=== PATIENT | male | born 1950 | race Caucasian/White ===

== ENCOUNTER → 2016-12-18 | Outpatient (CLI) | payer OTHER ==
[~2016-12-18] MED LIST: ACET-1311 PO; ALBUAER9 INH; ASPI1TAB83 PO; CALC-20 PO; CETI10TA10 PO; CYCL5TAB PO; DABI150C PO; DIGO0.1267 PO; FLUT0.15 NAE; MAGN400T6 PO; METO25TA3 PO; MINEOIL26 PO; MULT-506 PO; OMEG10007 PO; POTA-327 PO; PRLSR20 PO; ROSU40TA PO; ZNTT/150 PO
== END | disposition home or self-care (01) ==
LOC: C.LABSPEC 11:15
PROVIDERS: ATTEND Family Medicine
DX: B35.1 Tinea unguium (principal)

== ENCOUNTER → 2017-01-19 | Outpatient (CLI) | payer OTHER ==
[2017-01-19 11:45] LABS: ESTIMATED AVERAGE GLUCOSE 131 mg/dl; HA1C FLAG Normal (Normal)
[2017-01-19 11:59] LABS: ALT/SGPT 68 U/L (12-78); AST/SGOT 39 U/L (15-37); BLOOD UREA NITROGEN 11 mg/dl (7-18); CALCIUM 8.9 mg/dl (8.5-10.1); CARBON DIOXIDE 31 mmol/L (21-32); CHLORIDE 105 mmol/L (98-107); GLUCOSE 108 mg/dl (70-99); POTASSIUM 4.2 mmol/L (3.5-5.1); SODIUM 143 mmol/L (136-145)
[2017-01-19 12:02] LABS: ALB/GLOB RATIO 1.1 (0.9-2); ALKALINE PHOSPHATASE 92 U/L (45-117); CHOLESTEROL 109 mg/dl (0-200); CHOLESTEROL/HDL RATIO 3.1; HDL CHOLESTEROL 35 mg/dl; LDL CHOLESTEROL CALCULATED 45 mg/dl; TRIGLYCERIDES 145 mg/dl (0-150); VERY LOW DENSITY LIPOPROT CALC 29 mg/dl
== END | disposition home or self-care (01) ==
LOC: C.LAB1850 10:46
PROVIDERS: ATTEND Internal Medicine Endocrinology, Diabetes & Metabolism
DX: E11.9 Type 2 diabetes mellitus without complications (principal)

== ENCOUNTER → 2017-04-27 | Outpatient (CLI) | payer OTHER ==
[2017-04-27 13:41] LABS: MEAN CELL VOLUME 90.5 fL (80-100); MEAN CORPUSCULAR HEMOGLOBIN 31.8 pg (25-34); MEAN CORPUSCULAR HGB CONC 35.1 g/dl (32-36); MEAN PLATELET VOLUME 10.9 fL (7.4-10.4); PLATELET COUNT 144 K/uL (130-400); RED BLOOD COUNT 4.97 M/uL (4.7-6.1); WHITE BLOOD COUNT 5.85 K/uL (4.8-10.8)
[2017-04-27 14:06] LABS: ESTIMATED AVERAGE GLUCOSE 114 mg/dl; HA1C FLAG Normal (Normal)
== END | disposition home or self-care (01) ==
LOC: C.LAB1850 12:16
PROVIDERS: ATTEND Physician Assistant
DX: E11.9 Type 2 diabetes mellitus without complications (principal)

== ENCOUNTER → 2017-05-27 | Outpatient (CLI) | payer OTHER ==
[2017-05-27 17:59] LABS: THYROID STIMULATING HORMONE 1.3 uIu/ml (0.300-4.500)
== END | disposition home or self-care (01) ==
LOC: C.LABBFT 11:16
PROVIDERS: ATTEND Physician Assistant
DX: E11.9 Type 2 diabetes mellitus without complications (principal)

== ENCOUNTER → 2018-03-29 | Outpatient (CLI) | payer OTHER ==
[~2018-03-29] MED LIST changes: -METO25TA3 PO; +METO25TA4 PO; +RANI150T85 PO; -ZNTT/150 PO
[2018-03-30 06:45] LABS: HEMOGLOBIN A1C 5.7 % (4.5-5.6)
== END | disposition home or self-care (01) ==
LOC: C.LABBFT 14:51
PROVIDERS: ATTEND Physician Assistant
DX: E11.9 Type 2 diabetes mellitus without complications (principal)

== ENCOUNTER 2022-08-14 19:32 | Observation (INO) ==
[2022-08-14 20:18] LABS: Basophils # (auto) 0.05 K/uL (0-0.2); Basophils % (auto) 0.6 %; Eosinophils # (auto) 0.04 K/uL (0-0.50); Eosinophils % (auto) 0.4 %; Hematocrit (blood only) 47.4 % (40.1-51.0); Hemoglobin 16.9 g/dl (14.0-18.0); Immature Granulocytes # (auto) 0.09 K/uL (0.00-0.02); Lymphocytes % (auto) 22.3 %; Mean Corpuscular Hgb Conc 35.7 g/dL (32.0-36.0); Mean Corpuscular Volume 89.8 fL (80.0-100.0); Mean Platelet Volume 11.1 fL (9.4-12.4); Monocytes # (auto) 1.21 K/uL (0.24-0.82); Monocytes % (auto) 13.5 %; Neutrophils # (auto) 5.58 K/uL (1.4-6.5); Neutrophils % (auto) 62.2 %; Platelet Count 183 K/uL (130-400); RDW Coefficient of Variation 13.3 % (11.5-14.5); RDW Standard Deviation 43.8 fL (36.4-46.3); Red Blood Count 5.28 M/uL (4.63-6.08); White Blood Count 8.97 K/ul (4.8-10.8)
[2022-08-14 20:57] LABS: Albumin Globulin Ratio 1.3 (0.9-2); Albumin Level 3.9 gm/dl (3.4-5.0); BUN Creatinine Ratio 21.9 (10-20); Bilirubin,Total 0.7 mg/dl (0.2-1.0); Calcium 8.7 mg/dl (8.5-10.1); Creatinine Clr Calc Pharmacy 121.6 ml/min; Est GFR (African American) 108.9 ml/min; Globulin 3.1 gm/dl (2.5-4.0)
[2022-08-14 21:10] LABS: Appearance Urine Clear (Clear); Bilirubin Urine Negative (Negative); Blood Urine Negative (Negative); Color Urine Yellow; Glucose Urine UA Negative (Negative); Ketones Urine Negative (Negative); Leukocyte Esterase Urine Negative (Negative); Nitrite Urine Negative (Negative); Protein Urine Negative (Negative); Specific Gravity Urine 1.015 (1.000-1.030); Urobilinogen Urine Negative (Negative); pH Urine 6.5 (4.5-7.5)
[2022-08-14] MEDS ORDERED: SODIUM CHLORIDE 0.9% 1000ML 1,000 ML IV ONE (22:16)
[2022-08-14] MEDS ORDERED: ONDANSETRON INJ 2 MG/ML 2 ML VIAL IV STA (22:16)
[2022-08-14] MEDS ORDERED: ACETAMINOPHEN 1,000 MG/100 ML VIAL IV STA (22:16)
--- NOTE | 2022-08-14 22:43 | Emergency Department Note ---
Impression & Plan Diffuse abdominal pain, SBO (small bowel obstruction), COVID-19, Elevated liver enzymes ED Provider Note NAME: SAMANTHA ALCOCER AGE: 71 SEX: M : 1950 ARRIVES VIA: Walk-In INFORMANT: [Patient] ED PROVIDER(S): [Atif Ochoa MD] CHIEF COMPLAINT: Abdominal pain HISTORY OF PRESENT ILLNESS: Patient is a 71-year-old male who tested positive for COVID 19 about 5 days ago. He has had about 6 days of symptoms. He has had a headache, stuffy nose, low- grade fever and a mild cough. For 3 days, he has had intermittent abdominal pain and some bloating with some cramping. Patient states the pain comes and goes but is currently about a 6 on a scale 1 out of 10. He has had his gallbladder and appendix removed, he has had hernia surgery. He knows he has adhesions. Patient has had 1 bout of diarrhea, no diarrhea today. He has had nausea but he has not vomited. REVIEW OF SYSTEMS: See HPI for pertinent positives and negatives. A total of ten systems were reviewed and were otherwise negative. PMHx/PSHx: See Below SOCIAL HISTORY: See Below. PHYSICAL EXAM: GENERAL: Patient is in no acute distress. HEENT: No acute trauma, normocephalic atraumatic, mucous membranes moist, no nasal congestion, no scleral icterus. NECK: No stridor, no adenopathy, no meningismus, trachea is midline. LUNGS: Clear to auscultation bilaterally, no wheeze, no rhonchi, breath sounds equal. HEART: No murmurs, irregular rhythm, normal rate. ABDOMEN: Soft, mildly tender to the mid abdomen, there is some abdominal distention with some tympany to percussion. EXTREMITIES: No cyanosis or edema, full range of motion of all the joints without pain or difficulty, no signs for acute trauma. NEUROLOGIC: Oriented x 3, no acute motor or sensory deficits, no focal weakness. SKIN: No rash, no jaundice, no diaphoresis. DIFFERENTIAL DIAGNOSIS: Appendicitis, testicular torsion, diverticulitis, UTI, obstruction, mesenteric ischemia, aortic pathology, inflammatory bowel disease, renal colic, PUD, pancreatitis, biliary pathology, hernia, volvulus, constipation, as well as other pathologies. EMERGENCY DEPARTMENT COURSE/PROCEDURES: MEDICAL DECISION MAKING: There is no leukocytosis or concerning anemia. There is a normal platelet count. No renal failure or significant electrolyte abnormality. There is some subtle liver enzyme elevations, the bilirubin though is normal. No evidence for pancreatitis. Urinalysis does not show infection. Chest film does not show free air or pneumonia. Abdominal and pelvis CT suggests a partial small bowel obstruction versus ileus. No diverticulitis, no free air, no emergent acute surgical process by CT imaging. The patient received IV Zofran and IV saline, he was given IV Tylenol, he did not want anything stronger for pain. With the findings of potential partial small bowel obstruction, I did order for a nasogastric tube. The patient has had this type of tube before for similar issues. Given his findings, I do think a hospital stay is warranted. He has a history of bowel obstruction and does have adhesions. It is possible that his COVID infection prompted his current abdominal findings. I did speak to the patient about his testing, I talked to case management, the on-call hospitalist has been consulted. Past Med/Surg History Medical History Atrial fibrillation DX 2005 ? , follows with Dr. Diaz, HX 2 CARDIOVERSIONS CAD (coronary artery disease) (09/26/14) Chronic constipation Degenerative disc disease Depression no meds Diabetes mellitus, type 2 Diverticular disease Excessive thirst ONGOING "IT'S BEEN FOREVER" NOTICE IT FIRST THING IN THE MORNING GERD (gastroesophageal reflux disease) Hiatal hernia History of anesthesia reaction PER PT WITH HEAVY ANESTHESIA GI MOTILITY SLOWS DOWN History of atrial flutter History of cardioversion x2--last one 09/26/2013 History of dizziness RESOLVED History of ileus HTN (hypertension) (09/26/14) Hyperlipidemia (09/26/14) Nausea and vomiting after administration of anesthetic agent On anticoagulant therapy on eliquis Osteoarthritis Sciatic nerve pain Sleep apnea BIPAP Tortuous colon BORN WITH Surgical History History of appendectomy History of cardiac cath 2007 History of cardiac radiofrequency ablation x3--/2010 for A-fib @ [facility] [place] History of cataract surgery History of cholecystectomy History of colonoscopy pt stated that he needs the "pediatric scope" History of esophagogastroduodenoscopy (EGD) History of eye surgery x2--bug removal and piece of tree History of heart artery stent 2007--[facility] History of liver biopsy d/t elevated liver functions--was ok History of tonsillectomy and adenoidectomy History of wisdom tooth extraction Hx of right inguinal hernia repair Family History Sister Breast cancer Colonic polyp Mother CHF (congestive heart failure) Father CHF (congestive heart failure) Aneurysm Other No family history of adverse response to anesthesia Past medical history not known due to adoption Social History Smoking Status: Never smoker Second Hand Exposure: No; Hx Alcohol Use: Yes Alcohol type: wine Hx Substance Use: No Preferred Language: Uzbek Communication Ability: Effective Coat Presser Required: No Beliefs That Will Affect Care: None and Confucianism Confucianism Beliefs: HINDUISM Current Living Situation: Spouse Feels Safe at Home: Yes Assistive Devices: Cane and Glasses Allergies Allergies Allergy/AdvReac Type Severity Reaction Status Date / Time Influenza Virus Vaccines Allergy Unknown SICK FOR 2 Verified 02/18/22 10:54 WEEKS AFTERWARD Iodinated Contrast Media Allergy Unknown RASH Verified 02/18/22 10:54 latex Allergy Unknown RASH Verified 02/18/22 10:54 morphine Allergy Unknown RASH AND Verified 02/18/22 10:54 SWELLING acetaminophen [From Percocet] AdvReac Unknown Gastrointestinal Verified 02/18/22 10:54 Upset atorvastatin AdvReac Unknown Muscle Pain Verified 02/18/22 10:54 doxycycline AdvReac Unknown BODY ACHES Verified 02/18/22 10:54 metformin AdvReac Unknown Diarrhea, Verified 02/18/22 10:54 ABDOMINAL PAIN oxycodone AdvReac Unknown GI UPSET Verified 02/18/22 10:54 Home Meds Home Medications Medication Instructions Recorded Confirmed acetaminophen 500 mg tablet 500 mg PO Q6H PRN ACHES AND PAINS 10/26/18 02/18/22 (Tylenol Extra Strength) apixaban 5 mg tablet 5 mg PO BID 10/26/18 02/18/22 aspirin 81 mg tablet,delayed 81 mg PO HS 10/26/18 02/18/22 release (Ecotrin Low Strength) cetirizine 10 mg tablet (Zyrtec) 10 mg PO QAM 10/26/18 02/18/22 docusate sodium 100 mg capsule 100 mg PO UD PRN Constipation 10/26/18 02/18/22 fluticasone propionate 50 2 spray intranasal UD PRN Nasal 10/26/18 02/18/22 mcg/actuation nasal Congestion spray,suspension (Flonase Allergy Relief) magnesium oxide 400 mg PO QAM 10/26/18 02/18/22 multivitamin 1 tab PO QAM 10/26/18 02/18/22 rosuvastatin 40 mg tablet 40 mg PO HS 10/26/18 02/18/22 calcium carbonate 600 mg-vitamin 1 cap PO BID 09/22/19 02/18/22 D3 10 mcg (400 unit) capsule (Calcium 600 with Vitamin D3) omeprazole 20 mg tablet,delayed 40 mg PO QAM 05/15/20 02/18/22 release ascorbic acid (vitamin C) 500 mg 500 mg PO DAILY 02/18/21 02/18/22 capsule cyanocobalamin (vitamin B-12) 1,000 mcg sublingual DAILY 02/18/21 02/18/22 1,000 mcg sublingual tablet potassium chloride 10 mEq 10 meq PO 3XWK 02/18/21 02/18/22 tablet,extended release (Klor-Con) diclofenac sodium 1 % topical gel 2 g topical UD PRN BONE SPUR 11/01/21 02/18/22 hydrocortisone 2.5 % topical cream 1 applic NM UD PRN HEMERRHOIDS 11/01/21 02/18/22 with perineal applicator (Procto-Med HC) meclizine 25 mg tablet 25 mg PO UD PRN NAUSEA, DIZZINESS 11/01/21 02/18/22 insulin aspart U-100 100 unit/mL 8 - 30 unit subcut UD 02/18/22 02/18/22 (3 mL) subcutaneous pen (Novolog Flexpen U-100 Insulin aspart) metoprolol succinate 50 mg 50 mg PO .COMPLEX 02/18/22 02/18/22 tablet,extended release 24 hr Previous Rx's Medication Instructions Recorded pen needle, diabetic 32 gauge x #500 ea 01/10/2232" (BD Aisha 2nd Gen Pen Needle) Toujeo Max U-300 SoloStar 300 74 unit (0.2467 mL) subcut HS 90 04/07/22 unit/mL (3 mL) subcutaneous days #24 mL insulin pen (insulin glargine U-300 conc) OneTouch Verio test strips (blood #400 ea 06/03/22 sugar diagnostic) Results & Data (ED) Vital Signs Vital Signs - 24 hr 08/14/22 19:57 08/14/22 23:08 08/15/22 01:06 Temperature 36.0 C L Temperature Source Oral Pulse Rate 59 L Pulse Rate [Finger] 80 90 Respiratory Rate 18 20 20 Respiratory Effort / Characteristics Non-Labored Spontaneous Non-Labored Spontaneous Non-Labored Spontaneous Respiratory Depth Normal Normal Normal Respiratory Pattern Regular Blood Pressure 118/68 Blood Pressure [Right Arm] 153/92 H 133/89 Blood Pressure Mean 84 Blood Pressure Mean [Right Arm] 112 103 Blood Pressure Position Sitting Pulse Oximetry 95 97 97 Oxygen Delivery Method Room Air Room Air Room Air Sepsis Recent Fever Within 48 Hours Yes Sepsis New/Unexplained Change in Mental Status N/A Sepsis Action Taken by Nursing No Action Required Home Medications Current Medication List: was personally reviewed by me Laboratory Data Attestation: I reviewed the patient's lab results. Result diagrams: 08/14/22 20:08 08/14/22 20:08 Lab Results 08/14/22 08/14/22 08/14/22 Range/Units 20:08 20:08 20:55 WBC 8.97 (4.8-10.8) K/ul RBC 5.28 (4.63-6.08) M/uL Hgb 16.9 (14.0-18.0) g/dl Hct 47.4 (40.1-51.0) % MCV 89.8 (80.0-100.0) fL MCH 32.0 (25.0-34.0) pg MCHC 35.7 (32.0-36.0) g/dL RDW Std Deviation 43.8 (36.4-46.3) fL RDW Coeff of Dominic 13.3 (11.5-14.5) % Plt Count 183 (130-400) K/uL MPV 11.1 (9.4-12.4) fL Immature Gran % (Auto) 1.0 % Neut % (Auto) 62.2 % Lymph % (Auto) 22.3 % [place] % (Auto) 13.5 % Eos % (Auto) 0.4 % Baso % (Auto) 0.6 % Neut # (Auto) 5.58 (1.4-6.5) K/uL Lymph # (Auto) 2.00 (1.2-3.4) K/uL [place] # (Auto) 1.21 H (0.24-0.82) K/uL Eos # (Auto) 0.04 (0-0.50) K/uL Baso # (Auto) 0.05 (0-0.2) K/uL Immature Gran # (Auto) 0.09 H (0.00-0.02) K/uL Sodium 134 L (136-145) mmol/L Potassium 4.0 (3.5-5.1) mmol/L Chloride 102 (98-107) mmol/L Carbon Dioxide 24 (21-32) mmol/L Anion Gap 8 (3-11) BUN 16 (6-23) mg/dl Creatinine 0.73 (0.6-1.4) mg/dl Est Cr Clr Drug Dosing 121.6 ml/min Est GFR ( Amer) 108.9 ml/min Est GFR (Non-Af Amer) 94.0 ml/min BUN/Creatinine Ratio 21.9 H (10-20) Glucose 137 H (70-99(Fasting)) mg/dl Calcium 8.7 (8.5-10.1) mg/dl Total Bilirubin 0.7 (0.2-1.0) mg/dl AST 56 H (13-39) U/L ALT 57 H (7-52) U/L Alkaline Phosphatase 108 H (34-104) U/L Total Protein 7.0 (6.0-8.3) gm/dl Albumin 3.9 (3.4-5.0) gm/dl Globulin 3.1 (2.5-4.0) gm/dl Albumin/Globulin Ratio 1.3 (0.9-2) Lipase 26 (11-82) U/L Urine Color Yellow Urine Appearance Clear (Clear) Urine pH 6.5 (4.5-7.5) Ur Specific [place] 1.015 (1.000-1.030) Urine Protein Negative (Negative) Urine Glucose (UA) Negative (Negative) Urine Ketones Negative (Negative) Urine Blood Negative (Negative) Urine Nitrite Negative (Negative) Urine Bilirubin Negative (Negative) Urine Urobilinogen Negative (Negative) Ur Leukocyte Esterase Negative (Negative) Administered Medications Discontinued Medications Sodium Chloride (Nss 1000ml) 1,000 mls @ 999 mls/hr IV .Q1H1M ONE Stop: 08/14/22 23:16 Last Infusion: 08/15/22 01:08 Dose: 0 mls/hr Documented By: Admin: 08/14/22 23:03 Dose: 999 mls/hr Documented By: TAQUERIA Acetaminophen (Ofirmev) 1,000 mg in 100 mls @ 400 mls/hr IV NOW STA Stop: 08/14/22 22:30 Last Infusion: 08/15/22 01:08 Dose: 0 mls/hr Documented By: Admin: 08/14/22 23:05 Dose: 400 mls/hr Documented By: TAQUERIA Ondansetron HCl (Ondansetron Inj 2 Mg/Ml 2 Ml Vial) 4 mg IV NOW STA Stop: 08/14/22 22:17 Last Admin: 08/14/22 23:02 Dose: 4 mg Documented By: TAQUERIA Imaging Data Attestation: I personally reviewed and interpreted this imaging study as fo llows: My Impression: Chest x-ray: Per my review there is no free air or pneumonia. Radiologist's Impression: Abdominal and pelvis CT without contrast: There are scattered gas/fluid levels within the dilated proximal and mid small bowel. Distal small bowel is completely decompressed. There is mild edema to the mid bowel wall adjacent to the mesentery. There is a gradual transition point which appears to be a loop of small bowel containing more solid material. There are scattered gas fluid levels within the nondilated right and transverse colon. Consider low-grade bowel obstruction due to gastroenteritis or ileus. No bowel operation or abscess. No diverticulitis. Discharge Plan Visit Data Chief Complaint: Abdominal Pain Stated Complaint: COVID+ 08/09, ABDOM PAIN ED Provider: Atif Ochoa Discharge Problem: Diffuse abdominal pain, SBO (small bowel obstruction), COVID-19, Elevated liver enzymes Patient Disposition: Admitted As Inpatient Condition: Good Forms Stand Alone Forms: My [facility] Prescriptions Prescriptions: No Action (DME) pen needle, diabetic [BD Aisha 2nd Gen Pen Needle] 32 gauge x 5/32" needle See Rx Instructions .ROUTE .MEDSUPPLY Qty: 500 3RF Rx Instructions: use 5 x daily Toujeo Max U-300 SoloStar 300 unit/mL (3 mL) insulin pen 74 unit SQ HS 90 Days Qty: 24 3RF (DME) OneTouch Verio test strips Strip See Dose Instructions .ROUTE .MEDSUPPLY Qty: 400 3RF Dose Instruction: As directed Rx Instructions: use 4 strips daily to test blood sugars cyanocobalamin (vitamin B-12) 1,000 mcg tablet, sublingual 1,000 mcg SL DAILY ascorbic acid (vitamin C) 500 mg capsule 500 mg PO DAILY insulin aspart U-100 [Novolog Flexpen U-100 Insulin] 100 unit/mL (3 mL) insulin pen 8 - 30 unit subcut UD Label Comments: SLIDING SCALE Rx Instructions: inject per sliding scale metoprolol succinate 50 mg tablet extended release 24 hr 50 mg PO .COMPLEX Rx Instructions: 50 mg PO in the am and 25mg in the pm; acetaminophen [Tylenol Extra Strength] 500 mg Tablet 500 mg PO Q6H PRN (Reason: ACHES AND PAINS) docusate sodium 100 mg Capsule 100 mg PO UD PRN (Reason: Constipation) apixaban 5 mg tablet 5 mg PO BID magnesium oxide 400 mg magnesium Tablet 400 mg PO QAM aspirin [Ecotrin Low Strength] 81 mg Tablet,Delayed Release (Dr/Ec) 81 mg PO HS cetirizine [Zyrtec] 10 mg Tablet 10 mg PO QAM multivitamin Tablet 1 tab PO QAM fluticasone propionate [Flonase Allergy Relief] 50 mcg/actuation [place],Suspension 2 spray Intranasal UD PRN (Reason: Nasal Congestion) Label Comments: 2 SPRAYS IN EACH NOSTRIL rosuvastatin 40 mg tablet 40 mg PO HS calcium carbonate-vitamin D3 [Calcium 600 with Vitamin D3] 600 mg(1,500mg) - 400 unit capsule 1 cap PO BID Label Comments: 1 tab PO BID; Rx Instructions: 1 tab PO BID; omeprazole 20 mg tablet,delayed release (DR/EC) 40 mg PO QAM potassium chloride [Klor-Con 10] 10 mEq tablet extended release 10 meq PO 3XWK Label Comments: MON, WED , FRI Rx Instructions: 3 days per week hydrocortisone [Procto-Med HC] 2.5 % Cream With Perineal Applicator 1 applic NM UD PRN (Reason: HEMERRHOIDS) diclofenac sodium 1 % Gel 2 g TOPICAL UD PRN (Reason: BONE SPUR) meclizine 25 mg Tablet 25 mg PO UD PRN (Reason: NAUSEA, DIZZINESS) Referrals Referrals: Tyler Merritt DO [Primary Care Provider] -
[2022-08-15] MEDS ORDERED: ONDANSETRON INJ 2 MG/ML 2 ML VIAL ONE (04:29)
[2022-08-15] MEDS ORDERED: ONDANSETRON INJ 2 MG/ML 2 ML VIAL IV STA (04:42)
--- NOTE | 2022-08-15 04:47 | History and Physical Report ---
DATE OF ADMISSION: 08/15/2022. CHIEF COMPLAINT: Abdominal pain. HISTORY OF PRESENT ILLNESS: A 71-year-old male with past medical history significant for paroxysmal atrial fibrillation, status post ablation x3, on chronic anticoagulation, CAD status post bare metal stent to LAD, hypertension, hyperlipidemia, sleep apnea with BiPAP, COPD, metabolic syndrome, cervical disk disease, fibromyalgia, GERD, restless legs syndrome, history of cholesteatoma left mastoid, diabetes, GERD, irritable bowel syndrome, who was recently diagnosed with COVID, comes with abdominal pain and found to have a small bowel obstruction. The patient says he has COVID symptoms of generalized weakness, headache, some mild cough, low-grade temperature. Symptoms started on Thursday, diagnosed on Thursday, seemed to get better after 2-3 days, then he started to have bloating and abdominal cramping, he knows that he has adhesions from previous bowel surgeries came to the hospital and found to have small bowel obstruction. He had one episode of diarrhea, but the diarrhea resolved, and last bowel movement was yesterday. Currently, no headache, no dizziness, occasional blurred visions, no earache, no runny nose, no sore throat. Currently, no cough, no chest pain, no shortness of breath. Has some nausea, abdominal pain improved with pain medication in the ER. Normal bladder movements. Resting comfortably and hemodynamically stable. ALLERGIES: INFLUENZA VIRUS VACCINE, IODINATED CONTRAST MEDIA, LATEX, MORPHINE, ATORVASTATIN, DOXYCYCLINE, METFORMIN AND OXYCODONE. PAST MEDICAL HISTORY: As mentioned above. PAST SURGICAL HISTORY: Ablation of the heart x3, colonoscopy, EGDs with biopsy, removal of cyst in the right shoulder, cardiac catheterization and bare metal stent to LAD, laparoscopic cholecystectomy, tonsillectomy, adenoidectomy, inguinal hernia repair. MEDICATIONS: The patient is on Tylenol 500 mg p.o. q. 6 hours p.r.n., Eliquis 5 mg p.o. b.i.d., vitamin C 500 mg p.o. daily, aspirin 81 mg p.o. at bedtime, Zetia 10 mg p.o. at bedtime, vitamin B12 1000 mcg sublingual daily, diclofenac sodium 2 g topical p.r.n., Colace 100 mg p.o. daily p.r.n., Flonase 2 sprays intranasal p.r.n., insulin sliding scale, magnesium oxide 400 mg p.o. a.m., meclizine 25 mg p.r.n., metoprolol succinate 50 mg p.o. b.i.d., molnupiravir as directed, multivitamin 1 tab daily, omeprazole 40 mg p.o. daily, potassium chloride 10 mEq p.o. 3 times a week, atorvastatin 40 mg p.o. at bedtime, Toujeo SoloSTAR 74 units subcutaneous at bedtime. FAMILY HISTORY: Significant for sister has musculoskeletal disorder. The patient is adopted. SOCIAL HISTORY: , no smoking. Alcohol, rarely. No drug use. REVIEW OF SYSTEMS: As per HPI. Rest of review of systems is negative. PHYSICAL EXAMINATION: GENERAL: The patient is of moderate built, not in acute distress. VITAL SIGNS: Temperature 36, pulse 90, respiratory rate 20, blood pressure 96/73, oxygen 96% on room air. HEENT: Pupils equal, round and reactive to light. Oral mucosa moist. NECK: No JVD, no neck masses. CARDIOVASCULAR: S1 and S2 heard. Regular rate and rhythm. No murmur, no gallop. RESPIRATORY SYSTEM: Normal AP diameter. No accessory muscle use. No wheezing or crackles. ABDOMEN: Soft, bowel sounds sluggish. Mild distention. Mild discomfort. No guarding. No rigidity. CENTRAL NERVOUS SYSTEM: Cranial nerves II-XII grossly intact, nonfocal. EXTREMITIES: No edema, no erythema. LABORATORY DATA: WBC 8.9, hemoglobin 16.9, hematocrit 47.4, platelets 183. Sodium 134, potassium 4, chloride 102, bicarbonate 24, BUN 16, creatinine 0.7, serum glucose 137, calcium 8.7, total bilirubin 0.7, AST 56, ALT 57, alkaline phosphatase 108. Lipase 26. Urinalysis negative. SARS-CoV-2 PCR positive. IMAGING DATA: Chest x-ray, no acute findings. CT abdomen and pelvis, preliminary report small bowel obstruction. EKG: Atrial flutter with PVCs, at rate of 115. No acute ST changes seen. ASSESSMENT AND PLAN: This is a 71-year-old male who was recently diagnosed with COVID, comes with abdominal pain, found to have small-bowel obstruction. 1. Small-bowel obstruction, status post NG tube in the ER. We will continue with n.p.o., IV fluids, IV antiemetics, IV pain medicines p.r.n. The patient is allergic to MORPHINE. Closely monitor in the [employer] tele. Surgical consult in a.m. for further recommendations. 2. History of atrial fibrillation, status post ablation, history of tachybrady syndrome, he is not a candidate for pacemaker. Rate controlled with metoprolol, can give p.o. from NG tube if possible, if not replace IV Lopressor to p.r.n. Continue also Eliquis via NG tube. 3. History of coronary artery disease, status post stent Continue aspirin, beta maria antonia, and statin via NG tube. 4. Diabetes. We will cut back Lantus 30 units at bedtime, insulin sliding scale. Follow the blood sugars. Adjust insulin when diet started 5. Gastroesophageal reflux disease. We will place him on IV Protonix. 6. Hypertension. Continue metoprolol. We will monitor the blood pressure. 7. Obstructive sleep apnea, on BiPAP. 8. Deep venous thrombosis prophylaxis, on Eliquis. DISPOSITION: Closely monitor in the [employer] tele. PT/OT prior to discharge. Social service to help with discharge planning. Job ID: [id number] TRACIE
[2022-08-15] MEDS ORDERED: ONDANSETRON INJ 2 MG/ML 2 ML VIAL IV PRN (06:05)
[2022-08-15] MEDS ORDERED: ACETAMINOPHEN 1,000 MG/100 ML VIAL IV PRN (06:05)
[2022-08-15] MEDS ORDERED: DICLOFENAC SOD 1% GEL 100 GM TUBE EXT PRN (06:05)
[2022-08-15] MEDS ORDERED: NITROGLYCERIN SL 0.4 MG/TAB TAB SL PRN (06:05)
[2022-08-15] MEDS ORDERED: FLUTICASONE PROPIONATE NA SPR 16 GM BTL PRN (06:05)
[2022-08-15] MEDS: SODIUM CHLORIDE 0.9% 1000ML 1,000 ML IV SCH ×2 (07:23→15:36)
[2022-08-15] MEDS: INSULIN ASPART PER UNIT SC SCH ×4 (07:26→23:00)
[2022-08-15 07:42] LABS: Hematocrit (blood only) 44.2 % (40.1-51.0); Hemoglobin 15.5 g/dl (14.0-18.0); Mean Corpuscular Hemoglobin 32.2 pg (25.0-34.0); Mean Corpuscular Hgb Conc 35.1 g/dL (32.0-36.0); Mean Corpuscular Volume 91.9 fL (80.0-100.0); Mean Platelet Volume 10.7 fL (9.4-12.4); Platelet Count 131 K/uL (130-400); RDW Coefficient of Variation 13.3 % (11.5-14.5); RDW Standard Deviation 45.4 fL (36.4-46.3); Red Blood Count 4.81 M/uL (4.63-6.08); White Blood Count 6.58 K/ul (4.8-10.8)
[2022-08-15 07:55] LABS: BUN Creatinine Ratio 17.1 (10-20); Calcium 8.3 mg/dl (8.5-10.1); Creatinine Clr Calc Pharmacy 108.3 ml/min; Est GFR (African American) 103.8 ml/min; Est GFR (Non-African American) 89.6 ml/min; Magnesium 2.1 mg/dl (1.7-2.4); Potassium 3.8 mmol/L (3.5-5.1)
[2022-08-15 08:12] LABS: Basophils # (auto) 0.03 K/uL (0-0.2); Basophils % (auto) 0.5 %; Eosinophils # (auto) 0.05 K/uL (0-0.50); Eosinophils % (auto) 0.8 %; Immature Granulocytes % (auto) 1.5 %; Lymphocytes # (auto) 1.87 K/uL (1.2-3.4); Lymphocytes % (auto) 28.4 %; Monocytes # (auto) 0.79 K/uL (0.24-0.82); Neutrophils # (auto) 3.74 K/uL (1.4-6.5); Neutrophils % (auto) 56.8 %
[2022-08-15 08:22] LABS: Estimated Average Glucose 120 mg/dl; Hemoglobin A1C 5.8 % (4.5-5.6)
--- NOTE | 2022-08-15 09:31 | CT Scan Report ---
CT OF THE ABDOMEN AND PELVIS WITHOUT CONTRAST CLINICAL HISTORY: Abdominal pain. COMPARISON STUDY: CT of the abdomen and pelvis October 26, 2018. TECHNIQUE: Axial images of the abdomen and pelvis were obtained without IV contrast. Images were revi ewed in the axial, sagittal, and coronal planes. Automated exposure control was utilized for the juan dy. A dose lowering technique was utilized adhering to the principles of ALARA. FINDINGS: A 4 mm right middle lobe nodule is unchanged since CT of October 26, 2018. This is benign given stability. Evaluation of the abdomen and pelvis is suboptimal on this unenhanced exam. There is no biliary ductal dilatation status post cholecystectomy. No hepatic lesions are identified on unenh anced exam. Spleen, adrenal glands, kidneys and pancreas are unremarkable with exception of a few par enchymal calcifications within the pancreas. There is no hydronephrosis. There is no pancreatic ducta l dilatation. Diverticulum of the second duodenum is noted. Multiple moderate dilated fluid-filled sm all bowel are present. No well-defined transition point is identified. No bowel wall thickening is id entified on unenhanced exam. This colonic diverticulosis without evidence for acute diverticulitis. T here is no lymphadenopathy. There is no fluid collection to suggest an abscess. IMPRESSION: 1. Multiple loops of moderately dilated fluid-filled small bowel without well-defined transition poin t. These findings could reflect a partial small bowel obstruction or enteritis with ileus. 2. Colonic diverticulosis without evidence for acute diverticulitis. ACT 112: Negative or not required by law. Electronically signed by: Jeremiah Dawkins M.D. 08/15/2022 9:29 AM
--- NOTE | 2022-08-15 10:16 | XRay Report ---
XR chest 1V portable HISTORY: Cough. Atypical chest pain. COMPARISON: Chest 11/29/2019. FINDINGS: No pneumothorax. No pleural effusions. The heart remains mildly enlarged. No new focal lung consolidations to suggest a pneumonia. No evidence for pulmonary edema. IMPRESSION: Stable mild cardiomegaly. ACT 112: Negative or not required by law. Electronically signed by: John Castanon M.D. 08/15/2022 10:15 AM
--- NOTE | 2022-08-15 10:19 | XRay Report ---
KUB HISTORY: NG tube placement. COMPARISON: Abdomen and pelvis CT 08/14/2022. FINDINGS: Nasogastric tube terminates in the proximal stomach. The fenestrated line is at the gastroe sophageal junction. This should be advanced by approximately 5 cm. Prior cholecystectomy. Gas-filled mildly dilated loops of small bowel are again seen within the upper abdomen. This favors a small eron l obstruction. No renal calculi. No ureteral calculi. No pneumoperitoneum or pneumatosis. IMPRESSION: 1. Nasogastric tube terminates in the proximal stomach with the fenestrated line at the gastroesophag eal junction. This should be advanced by approximately 5 cm. 2. Mildly dilated gas-filled loops of small bowel within the upper abdomen which favors a small bowel obstruction. ACT 112: Negative or not required by law. Electronically signed by: John Castanon M.D. 08/15/2022 10:17 AM
[2022-08-15 10:26] LABS: Alanine Aminotransferase 50 U/L (7-52); Aspartate Aminotransferase 37 U/L (13-39)
[2022-08-15] MEDS: MAGNESIUM OXIDE 400 MG TAB PO SCH ×2 (12:07→14:11)
[2022-08-15] MEDS: METOPROLOL SUCC 50MG EXT REL TAB PO SCH ×2 (12:07→22:10)
[2022-08-15] MEDS: APIXABAN 5 MG TABLET PO SCH ×2 (12:07→22:10)
--- NOTE | 2022-08-15 12:36 | Surgery Consultation ---
Date of Consultation August 15, 2022 Assessment & Plan (1) Diarrhea: (2) Abdominal bloating: (3) Partial small bowel obstruction: Plan 71-year-old gentleman with COVID, also presents with what appears to be an ileus versus gastroenteritis. I do not believe he has a small bowel obstruction as he is passing flatus and has had diarrhea. The NG tube can be removed. He may be started on clear liquids. We will follow along peripherally. History of Present Illness Reason for Consultation: Small bowel obstruction Requesting Physician: Kana Del Rio MD Attending Physician: Kana Del Rio MD History of Present Illness 71-year-old gentleman presents with diarrhea, abdominal pain, nausea, COVID infection. He states that he has been having some lower abdominal pain on and off for the past few weeks. He did have diarrhea. He usually has a bowel movem ent every 2 to 4 days. Yesterday he developed significant upper abdominal pain and some nausea. He did not have any vomiting episodes. He denies fevers or chills. He denies chest pain or shortness of breath. He was diagnosed with COVID on Thursday. He has a history of ileus in the past. He states that he is continuing to pass a lot of gas. He does feel bloated. His last bowel movement was yesterday. Allergies Allergy/AdvReac Type Severity Reaction Status Date / Time Influenza Virus Vaccines Allergy Unknown SICK FOR 2 Verified 02/18/22 10:54 WEEKS AFTERWARD Iodinated Contrast Media Allergy Unknown RASH Verified 02/18/22 10:54 latex Allergy Unknown RASH Verified 02/18/22 10:54 morphine Allergy Unknown RASH AND Verified 02/18/22 10:54 SWELLING atorvastatin AdvReac Unknown Muscle Pain Verified 02/18/22 10:54 doxycycline AdvReac Unknown BODY ACHES Verified 02/18/22 10:54 metformin AdvReac Unknown Diarrhea, Verified 02/18/22 10:54 ABDOMINAL PAIN oxycodone AdvReac Unknown GI UPSET Verified 02/18/22 10:54 Home Medications Medication Instructions Recorded Confirmed Type acetaminophen 500 mg tablet 500 mg PO Q6H PRN ACHES AND PAINS 10/26/18 08/15/22 History (Tylenol Extra Strength) apixaban 5 mg tablet 5 mg PO BID 10/26/18 08/15/22 History aspirin 81 mg tablet,delayed 81 mg PO HS 10/26/18 08/15/22 History release (Ecotrin Low Strength) cetirizine 10 mg tablet (Zyrtec) 10 mg PO HS 10/26/18 08/15/22 History docusate sodium 100 mg capsule 100 mg PO UD PRN Constipation 10/26/18 08/15/22 History fluticasone propionate 50 2 spray intranasal UD PRN Nasal 10/26/18 08/15/22 History mcg/actuation nasal Congestion spray,suspension (Flonase Allergy Relief) magnesium oxide 400 mg PO QAM 10/26/18 08/15/22 History multivitamin 1 tab PO QAM 10/26/18 08/15/22 History rosuvastatin 40 mg tablet 40 mg PO HS 10/26/18 08/15/22 History calcium carbonate 600 mg-vitamin 1 cap PO BID 09/22/19 08/15/22 History D3 10 mcg (400 unit) capsule (Calcium 600 with Vitamin D3) omeprazole 20 mg tablet,delayed 40 mg PO QAM 05/15/20 08/15/22 History release ascorbic acid (vitamin C) 500 mg 500 mg PO DAILY 02/18/21 08/15/22 History capsule cyanocobalamin (vitamin B-12) 1,000 mcg sublingual DAILY 02/18/21 08/15/22 History 1,000 mcg sublingual tablet potassium chloride 10 mEq 10 meq PO 3XWK 02/18/21 08/15/22 History tablet,extended release (Klor-Con) diclofenac sodium 1 % topical gel 2 g topical UD PRN BONE SPUR 11/01/21 08/15/22 History hydrocortisone 2.5 % topical cream 1 applic VA UD PRN HEMERRHOIDS 11/01/21 08/15/22 History with perineal applicator (Procto-Med HC) meclizine 25 mg tablet 25 mg PO UD PRN NAUSEA, DIZZINESS 11/01/21 08/15/22 History pen needle, diabetic 32 gauge x #500 ea 01/10/22 08/15/22 Rx 5/32" (BD Aisha 2nd Gen Pen Needle) insulin aspart U-100 100 unit/mL 8 - 30 unit subcut UD 02/18/22 08/15/22 History (3 mL) subcutaneous pen (Novolog Flexpen U-100 Insulin aspart) metoprolol succinate 50 mg 50 mg PO BID 02/18/22 08/15/22 History tablet,extended release 24 hr Toujeo Max U-300 SoloStar 300 74 unit (0.2467 mL) subcut HS 90 04/07/22 08/15/22 Rx unit/mL (3 mL) subcutaneous days #24 mL insulin pen (insulin glargine U-300 conc) OneTouch Verio test strips (blood #400 ea 06/03/22 08/15/22 Rx sugar diagnostic) molnupiravir 200 mg capsule (EUA) 800 mg PO BID 08/15/22 08/15/22 History ([place]) Patient History Medical History Atrial fibrillation DX 2005 ? , follows with Dr. Diaz, HX 2 CARDIOVERSIONS CAD (coronary artery disease) (09/26/14) Chronic constipation Degenerative disc disease Depression no meds Diabetes mellitus, type 2 Diverticular disease Excessive thirst ONGOING "IT'S BEEN FOREVER" NOTICE IT FIRST THING IN THE MORNING GERD (gastroesophageal reflux disease) Hiatal hernia History of anesthesia reaction PER PT WITH HEAVY ANESTHESIA GI MOTILITY SLOWS DOWN History of atrial flutter History of cardioversion x2--last one 09/26/2013 History of dizziness RESOLVED History of ileus HTN (hypertension) (09/26/14) Hyperlipidemia (09/26/14) Nausea and vomiting after administration of anesthetic agent On anticoagulant therapy on eliquis Osteoarthritis Sciatic nerve pain Sleep apnea BIPAP Tortuous colon BORN WITH Surgical History History of appendectomy History of cardiac cath 2007 History of cardiac radiofrequency [place] x3[place]2009[place] [facility] [place] History of cataract surgery History of cholecystectomy History of colonoscopy pt stated that he needs the "pediatric scope" History of esophagogastroduodenoscopy (EGD) History of eye surgery x2--bug removal and piece of tree History of heart artery stent 2007--[facility] History of liver biopsy d/t elevated liver functions--was ok History of tonsillectomy and adenoidectomy History of wisdom tooth extraction Hx of right inguinal hernia repair Family History Sister Breast cancer Colonic polyp Mother CHF (congestive heart failure) Father CHF (congestive heart failure) Aneurysm Other No family history of adverse response to anesthesia Past medical history not known due to adoption Social History Smoking Status: Former smoker Second Hand Exposure: No; Hx Alcohol Use: Yes Alcohol type: wine Hx Substance Use: No Preferred Language: Surinamese Communication Ability: Effective Line Inspector Required: No Beliefs That Will Affect Care: None marital status: Current Living Situation: Spouse Feels Safe at Home: Yes Safety Concerns: Feels Safe At This Time Assistive Devices: BiPap and Cane Review of Systems Review of Systems: All systems reviewed & are unremarkable except as noted in HPI & below Physical Exam Constitutional: WD/WN, vitals as above Neck: trachea midline, no thyromegaly Respiratory: normal respiratory effort; no respiratory distress and no labored breathing Cardiovascular: Rate/Rhythm: regular rate and regular rhythm Gastrointestinal (Abdomen): Inspection/Auscultation: abdomen normal to inspection; abdomen not distended Percussion/Palpation: + abdomen tender (Mild TTP in epigastrium) and abdomen soft; no guarding and abdomen not rigid Musculoskeletal: Extremities: no cyanosis and no clubbing Skin: no rashes, warm and dry Psychiatric: A+Ox3, euthymic affect Results & Data ([facility]) Vital Signs (Past 12 Hours) Vital Signs Pulse Pulse Resp BP BP Pulse Ox Pulse Ox 08/15/22 10:00 91 H 13 08/15/22 09:30 96 H 14 08/15/22 09:00 100 H 16 08/15/22 08:30 80 16 08/15/22 08:00 77 17 08/15/22 07:30 89 21 08/15/22 07:00 81 5 L 08/15/22 07:04 97 08/15/22 06:23 79 19 106/82 98 08/15/22 05:31 75 20 131/96 08/15/22 05:00 78 22 126/91 96 08/15/22 04:30 20 118/73 95 08/15/22 04:00 20 111/78 96 08/15/22 03:30 12 110/81 95 08/15/22 03:01 12 137/85 97 08/15/22 02:30 20 96/73 L 96 08/15/22 02:00 22 105/71 96 08/15/22 01:06 90 20 133/89 97 O2 Del Method O2 Del Method 08/15/22 10:00 08/15/22 09:30 08/15/22 09:00 08/15/22 08:30 08/15/22 08:00 08/15/22 07:30 08/15/22 07:00 08/15/22 07:04 Room Air 08/15/22 06:23 Room Air 08/15/22 05:31 08/15/22 05:00 Room Air 08/15/22 04:30 Room Air 08/15/22 04:00 Room Air 08/15/22 03:30 Room Air 08/15/22 03:01 Room Air 08/15/22 02:30 Room Air 08/15/22 02:00 Room Air 08/15/22 01:06 Room Air Laboratory Results 08/15/22 08/15/22 08/15/22 Range/Units 12:14 09:50 07:14 WBC (4.8-10.8) K/ul RBC (4.63-6.08) M/uL Hgb (14.0-18.0) g/dl Hct (40.1-51.0) % MCV (80.0-100.0) fL MCH (25.0-34.0) pg MCHC (32.0-36.0) g/dL RDW Std Deviation (36.4-46.3) fL RDW Coeff of Dominic (11.5-14.5) % Plt Count (130-400) K/uL MPV (9.4-12.4) fL Immature Gran % (Auto) % Neut % (Auto) % Lymph % (Auto) % Richardson % (Auto) % Eos % (Auto) % Baso % (Auto) % Neut # (Auto) (1.4-6.5) K/uL Lymph # (Auto) (1.2-3.4) K/uL Richardson # (Auto) (0.24-0.82) K/uL Eos # (Auto) (0-0.50) K/uL Baso # (Auto) (0-0.2) K/uL Immature Gran # (Auto) (0.00-0.02) K/uL Sodium (136-145) mmol/L Potassium (3.5-5.1) mmol/L Chloride (98-107) mmol/L Carbon Dioxide (21-32) mmol/L Anion Gap (3-11) BUN (6-23) mg/dl Creatinine (0.6-1.4) mg/dl Est Cr Clr Drug Dosing ml/min Est GFR ( Amer) ml/min Est GFR (Non-Af Amer) ml/min BUN/Creatinine Ratio (10-20) Glucose (70-99(Fasting)) mg/dl POC Glucose 80 (70-99) mg/dl Estimat Average Glucose 120 mg/dl Hemoglobin A1c 5.8 H (4.5-5.6) % Calcium (8.5-10.1) mg/dl Magnesium (1.7-2.4) mg/dl Total Bilirubin (0.2-1.0) mg/dl AST 37 (13-39) U/L ALT 50 (7-52) U/L Alkaline Phosphatase (34-104) U/L Total Protein (6.0-8.3) gm/dl Albumin (3.4-5.0) gm/dl Globulin (2.5-4.0) gm/dl Albumin/Globulin Ratio (0.9-2) Lipase (11-82) U/L Urine Color Urine Appearance (Clear) Urine pH (4.5-7.5) Ur Specific [place] (1.000-1.030) Urine Protein (Negative) Urine Glucose (UA) (Negative) Urine Ketones (Negative) Urine Blood (Negative) Urine Nitrite (Negative) Urine Bilirubin (Negative) Urine Urobilinogen (Negative) Ur Leukocyte Esterase (Negative) SARS-CoV-2 (PCR) (Negative) 08/15/22 08/15/22 08/15/22 Range/Units 07:14 07:14 07:13 WBC 6.58 (4.8-10.8) K/ul RBC 4.81 (4.63-6.08) M/uL Hgb 15.5 (14.0-18.0) g/dl Hct 44.2 (40.1-51.0) % MCV 91.9 (80.0-100.0) fL MCH 32.2 (25.0-34.0) pg MCHC 35.1 (32.0-36.0) g/dL RDW Std Deviation 45.4 (36.4-46.3) fL RDW Coeff of Dominic 13.3 (11.5-14.5) % Plt Count 131 (130-400) K/uL MPV 10.7 (9.4-12.4) fL Immature Gran % (Auto) 1.5 % Neut % (Auto) 56.8 % Lymph % (Auto) 28.4 % Richardson % (Auto) 12.0 % Eos % (Auto) 0.8 % Baso % (Auto) 0.5 % Neut # (Auto) 3.74 (1.4-6.5) K/uL Lymph # (Auto) 1.87 (1.2-3.4) K/uL Richardson # (Auto) 0.79 (0.24-0.82) K/uL Eos # (Auto) 0.05 (0-0.50) K/uL Baso # (Auto) 0.03 (0-0.2) K/uL Immature Gran # (Auto) 0.10 H (0.00-0.02) K/uL Sodium 138 (136-145) mmol/L Potassium 3.8 (3.5-5.1) mmol/L Chloride 104 (98-107) mmol/L Carbon Dioxide 30 (21-32) mmol/L Anion Gap 4 (3-11) BUN 14 (6-23) mg/dl Creatinine 0.82 (0.6-1.4) mg/dl Est Cr Clr Drug Dosing 108.3 ml/min Est GFR ( Amer) 103.8 ml/min Est GFR (Non-Af Amer) 89.6 ml/min BUN/Creatinine Ratio 17.1 (10-20) Glucose 80 (70-99(Fasting)) mg/dl POC Glucose 81 (70-99) mg/dl Estimat Average Glucose mg/dl Hemoglobin A1c (4.5-5.6) % Calcium 8.3 L (8.5-10.1) mg/dl Magnesium 2.1 (1.7-2.4) mg/dl Total Bilirubin (0.2-1.0) mg/dl AST (13-39) U/L ALT (7-52) U/L Alkaline Phosphatase (34-104) U/L Total Protein (6.0-8.3) gm/dl Albumin (3.4-5.0) gm/dl Globulin (2.5-4.0) gm/dl Albumin/Globulin Ratio (0.9-2) Lipase (11-82) U/L Urine Color Urine Appearance (Clear) Urine pH (4.5-7.5) Ur Specific [place] (1.000-1.030) Urine Protein (Negative) Urine Glucose (UA) (Negative) Urine Ketones (Negative) Urine Blood (Negative) Urine Nitrite (Negative) Urine Bilirubin (Negative) Urine Urobilinogen (Negative) Ur Leukocyte Esterase (Negative) SARS-CoV-2 (PCR) (Negative) 08/15/22 08/14/22 08/14/22 Range/Units 00:53 20:55 20:08 WBC (4.8-10.8) K/ul RBC (4.63-6.08) M/uL Hgb (14.0-18.0) g/dl Hct (40.1-51.0) % MCV (80.0-100.0) fL MCH (25.0-34.0) pg MCHC (32.0-36.0) g/dL RDW Std Deviation (36.4-46.3) fL RDW Coeff of Dominic (11.5-14.5) % Plt Count (130-400) K/uL MPV (9.4-12.4) fL Immature Gran % (Auto) % Neut % (Auto) % Lymph % (Auto) % Richardson % (Auto) % Eos % (Auto) % Baso % (Auto) % Neut # (Auto) (1.4-6.5) K/uL Lymph # (Auto) (1.2-3.4) K/uL Richardson # (Auto) (0.24-0.82) K/uL Eos # (Auto) (0-0.50) K/uL Baso # (Auto) (0-0.2) K/uL Immature Gran # (Auto) (0.00-0.02) K/uL Sodium 134 L (136-145) mmol/L Potassium 4.0 (3.5-5.1) mmol/L Chloride 102 (98-107) mmol/L Carbon Dioxide 24 (21-32) mmol/L Anion Gap 8 (3-11) BUN 16 (6-23) mg/dl Creatinine 0.73 (0.6-1.4) mg/dl Est Cr Clr Drug Dosing 121.6 ml/min Est GFR ( Amer) 108.9 ml/min Est GFR (Non-Af Amer) 94.0 ml/min BUN/Creatinine Ratio 21.9 H (10-20) Glucose 137 H (70-99(Fasting)) mg/dl POC Glucose (70-99) mg/dl Estimat Average Glucose mg/dl Hemoglobin A1c (4.5-5.6) % Calcium 8.7 (8.5-10.1) mg/dl Magnesium (1.7-2.4) mg/dl Total Bilirubin 0.7 (0.2-1.0) mg/dl AST 56 H (13-39) U/L ALT 57 H (7-52) U/L Alkaline Phosphatase 108 H (34-104) U/L Total Protein 7.0 (6.0-8.3) gm/dl Albumin 3.9 (3.4-5.0) gm/dl Globulin 3.1 (2.5-4.0) gm/dl Albumin/Globulin Ratio 1.3 (0.9-2) Lipase 26 (11-82) U/L Urine Color Yellow Urine Appearance Clear (Clear) Urine pH 6.5 (4.5-7.5) Ur Specific [place] 1.015 (1.000-1.030) Urine Protein Negative (Negative) Urine Glucose (UA) Negative (Negative) Urine Ketones Negative (Negative) Urine Blood Negative (Negative) Urine Nitrite Negative (Negative) Urine Bilirubin Negative (Negative) Urine Urobilinogen Negative (Negative) Ur Leukocyte Esterase Negative (Negative) SARS-CoV-2 (PCR) POSITIVE A* (Negative) 08/14/22 Range/Units 20:08 WBC 8.97 (4.8-10.8) K/ul RBC 5.28 (4.63-6.08) M/uL Hgb 16.9 (14.0-18.0) g/dl Hct 47.4 (40.1-51.0) % MCV 89.8 (80.0-100.0) fL MCH 32.0 (25.0-34.0) pg MCHC 35.7 (32.0-36.0) g/dL RDW Std Deviation 43.8 (36.4-46.3) fL RDW Coeff of Dominic 13.3 (11.5-14.5) % Plt Count 183 (130-400) K/uL MPV 11.1 (9.4-12.4) fL Immature Gran % (Auto) 1.0 % Neut % (Auto) 62.2 % Lymph % (Auto) 22.3 % Richardson % (Auto) 13.5 % Eos % (Auto) 0.4 % Baso % (Auto) 0.6 % Neut # (Auto) 5.58 (1.4-6.5) K/uL Lymph # (Auto) 2.00 (1.2-3.4) K/uL Richardson # (Auto) 1.21 H (0.24-0.82) K/uL Eos # (Auto) 0.04 (0-0.50) K/uL Baso # (Auto) 0.05 (0-0.2) K/uL Immature Gran # (Auto) 0.09 H (0.00-0.02) K/uL Sodium (136-145) mmol/L Potassium (3.5-5.1) mmol/L Chloride (98-107) mmol/L Carbon Dioxide (21-32) mmol/L Anion Gap (3-11) BUN (6-23) mg/dl Creatinine (0.6-1.4) mg/dl Est Cr Clr Drug Dosing ml/min Est GFR ( Amer) ml/min Est GFR (Non-Af Amer) ml/min BUN/Creatinine Ratio (10-20) Glucose (70-99(Fasting)) mg/dl POC Glucose (70-99) mg/dl Estimat Average Glucose mg/dl Hemoglobin A1c (4.5-5.6) % Calcium (8.5-10.1) mg/dl Magnesium (1.7-2.4) mg/dl Total Bilirubin (0.2-1.0) mg/dl AST (13-39) U/L ALT (7-52) U/L Alkaline Phosphatase (34-104) U/L Total Protein (6.0-8.3) gm/dl Albumin (3.4-5.0) gm/dl Globulin (2.5-4.0) gm/dl Albumin/Globulin Ratio (0.9-2) Lipase (11-82) U/L Urine Color Urine Appearance (Clear) Urine pH (4.5-7.5) Ur Specific [place] (1.000-1.030) Urine Protein (Negative) Urine Glucose (UA) (Negative) Urine Ketones (Negative) Urine Blood (Negative) Urine Nitrite (Negative) Urine Bilirubin (Negative) Urine Urobilinogen (Negative) Ur Leukocyte Esterase (Negative) SARS-CoV-2 (PCR) (Negative) Diagnostic Findings CT OF THE ABDOMEN AND PELVIS WITHOUT CONTRAST CLINICAL HISTORY: Abdominal pain. COMPARISON STUDY: CT of the abdomen and pelvis October 26, 2018. TECHNIQUE: Axial images of the abdomen and pelvis were obtained without IV contrast. Images were reviewed in the axial, sagittal, and coronal planes. A utomated exposure control was utilized for the study. A dose lowering technique was utilized adhering to the principles of ALARA. FINDINGS: A 4 mm right middle lobe nodule is unchanged since CT of October 26, 2018. This is benign given stability. Evaluation of the abdomen and pelvis is suboptimal on this unenhanced exam. There is no biliary ductal dilatation status post cholecystectomy. No hepatic lesions are identified on unenhanced exam. Spleen, adrenal glands, kidneys and pancreas are unremarkable with exception of a few parenchymal calcifications within the pancreas. There is no hydro nephrosis. There is no pancreatic ductal dilatation. Diverticulum of the second duodenum is noted. Multiple moderate dilated fluid-filled small bowel are present. No well-defined transition point is identified. No bowel wall thickening is identified on unenhanced exam. This colonic diverticulosis without evidence for acute diverticulitis. There is no lymphadenopathy. There is no fluid collection to suggest an abscess. IMPRESSION: 1. Multiple loops of moderately dilated fluid-filled small bowel without well- defined transition point. These findings could reflect a partial small bowel obstruction or enteritis with ileus. 2. Colonic diverticulosis without evidence for acute diverticulitis.
--- NOTE | 2022-08-15 17:37 | Hospitalist Progress Note ---
Date of Service August 15, 2022 Assessment & Plan (1) SBO (small bowel obstruction): (2) COVID-19: (3) Atrial fibrillation: (4) Type 2 diabetes mellitus with insulin therapy: (5) Obesity (BMI 30-39.9): Plan This is a 71yo M with a PMH of paroxysmal atrial fibrillation, status post ablation x3, on chronic anticoagulation, CAD status post bare metal stent to LAD, hypertension, hyperlipidemia, sleep apnea with BiPAP, COPD, metabolic syndrome, cervical disk disease, fibromyalgia, GERD, restless legs syndrome, history of cholesteatoma left mastoid, diabetes, GERD, irritable bowel syndrome, who was recently diagnosed with COVID, comes with abdominal pain and found to have a small bowel obstruction. Small-bowel obstruction Status post NG tube in the ER Seen by general surgery who removed NG tube and advanced diet. Tolerated clears for lunch. Passing flatus but no bowel movement at this time Paroxysmal A Fib Status post ablation, history of tachybrady syndrome, he is not a candidate for pacemaker. Rate controlled with metoprolol, continue Eliquis CAD Status post stent. Continue aspirin, beta maria antonia, and statin via NG tube. DM II Lantus reduced with NPO status. Follow the blood sugars. Adjust insulin when diet started Gastroesophageal reflux disease Continue IV Protonix Hypertension Continue metoprolol Obstructive sleep apnea BiPAP HS DVT Ppx: Eliquis Code status: FULL Dispo: admitted to [facility] Admission and Anticipated Discharge Date Admission Date: August 15, 2022 Supervising Physician Co-Signing Physician Notes Patient seen and examined independently. Abdomen pain improved NG tube taken out Advance diet as tolerated. Discharge in am if continues to improve clinically. Subjective Seen and examined in B 10. Feeling much better without abdominal pain. Passing flatus but no bowel movement yet. NG tube has been removed and diet advanced to clears without issue. Denies any respiratory symptoms from COVID. No fever, chills, headache, chest pain, shortness of breath, nausea, vomiting, dysuria or diarrhea. Review of Systems Review of Systems: At least ten systems reviewed and negative except as noted in the HPI. Physical Exam Physical Exam: Gen: WD/WN, NAD, sitting in bed, A&Ox3, obese HEENT: Normocephalic, atraumatic, conjunctivae moist, sclerae anicteric, mucous membranes moist Lung: Clear to Auscultation bilaterally, no wheezes/rales/rhonchi Heart: Regular rate, regular rhythm, no murmurs, rubs, or gallops Abdomen: Soft, NT, ND, hypoactive bowel sounds Extremities: no edema Skin: Warm, no rash Results & Data Results & Data ([facility]) Vital Signs (Past 12 Hours) Vital Signs Pulse Pulse Resp BP BP Pulse Ox Pulse Ox 08/15/22 15:17 93 H 20 105/51 L 97 08/15/22 10:45 98 H 107/72 97 08/15/22 10:00 91 H 13 08/15/22 09:30 96 H 14 08/15/22 09:00 100 H 16 08/15/22 08:30 80 16 08/15/22 08:00 77 17 08/15/22 07:30 89 21 08/15/22 07:00 81 5 L 08/15/22 07:04 97 08/15/22 06:23 79 19 106/82 98 08/15/22 05:31 75 20 131/96 O2 Del Method O2 Del Method 08/15/22 15:17 08/15/22 10:45 08/15/22 10:00 08/15/22 09:30 08/15/22 09:00 08/15/22 08:30 08/15/22 08:00 08/15/22 07:30 08/15/22 07:00 08/15/22 07:04 Room Air 08/15/22 06:23 Room Air 08/15/22 05:31 Laboratory Results Short CBC 08/14/22 08/15/22 Range/Units 20:08 07:14 WBC 8.97 6.58 (4.8-10.8) K/ul Hgb 16.9 15.5 (14.0-18.0) g/dl Hct 47.4 44.2 (40.1-51.0) % Plt Count 183 131 (130-400) K/uL BMP 08/14/22 08/15/22 20:08 07:14 Sodium 134 L 138 Potassium 4.0 3.8 Chloride 102 104 Carbon Dioxide 24 30 BUN 16 14 Creatinine 0.73 0.82 Glucose 137 H 80 Calcium 8.7 8.3 L Liver Function 08/14/22 08/15/22 Range/Units 20:08 09:50 Total Bilirubin 0.7 (0.2-1.0) mg/dl AST 56 H 37 (13-39) U/L ALT 57 H 50 (7-52) U/L Alkaline Phosphatase 108 H (34-104) U/L Albumin 3.9 (3.4-5.0) gm/dl Urine 08/14/22 Range/Units 20:55 Urine Color Yellow Urine Appearance Clear (Clear) Urine pH 6.5 (4.5-7.5) Ur Specific [place] 1.015 (1.000-1.030) Urine Protein Negative (Negative) Urine Glucose (UA) Negative (Negative) Diagnostic Findings Abdomen/Pelvis CT 08/14/22 21:59 CT OF THE ABDOMEN AND PELVIS WITHOUT CONTRAST CLINICAL HISTORY: Abdominal pain. COMPARISON STUDY: CT of the abdomen and pelvis October 26, 2018. TECHNIQUE: Axial images of the abdomen and pelvis were obtained without IV contrast. Images were reviewed in the axial, sagittal, and coronal planes. Automated exposure control was utilized for the study. A dose lowering technique was utilized adhering to the principles of ALARA. FINDINGS: A 4 mm right middle lobe nodule is unchanged since CT of October 26, 2018. This is benign given stability. Evaluation of the abdomen and pelvis is suboptimal on this unenhanced exam. There is no biliary ductal dilatation status post cholecystectomy. No hepatic lesions are identified on unenhanced exam. Spleen, adrenal glands, kidneys and pancreas are unremarkable with exception of a few parenchymal calcifications within the pancreas. There is no hydronephrosis. There is no pancreatic ductal dilatation. Diverticulum of the second duodenum is noted. Multiple moderate dilated fluid-filled small bowel are present. No well-defined transition point is identified. No bowel wall thickening is identified on unenhanced exam. This colonic diverticulosis without evidence for acute diverticulitis. There is no lymphadenopathy. There is no fluid collection to suggest an abscess. IMPRESSION: 1. Multiple loops of moderately dilated fluid-filled small bowel without well- defined transition point. These findings could reflect a partial small bowel obstruction or enteritis with ileus. 2. Colonic diverticulosis without evidence for acute diverticulitis. ACT 112: Negative or not required by law. Electronically signed by: Jeremiah Dawkins M.D. 08/15/2022 9:29 AM Chest X-Ray 08/14/22 21:59 XR chest 1V portable HISTORY: Cough. Atypical chest pain. COMPARISON: Chest 11/29/2019. FINDINGS: No pneumothorax. No pleural effusions. The heart remains mildly enlarged. No new focal lung consolidations to suggest a pneumonia. No evidence for pulmonary edema. IMPRESSION: Stable mild cardiomegaly. ACT 112: Negative or not required by law. Electronically signed by: John Castanon M.D. 08/15/2022 10:15 AM KUB X-Ray 08/15/22 01:09 KUB HISTORY: NG tube placement. COMPARISON: Abdomen and pelvis CT 08/14/2022. FINDINGS: Nasogastric tube terminates in the proximal stomach. The fenestrated line is at the gastroesophageal junction. This should be advanced by approximately 5 cm. Prior cholecystectomy. Gas-filled mildly dilated loops of small bowel are again seen within the upper abdomen. This favors a small bowel obstruction. No renal calculi. No ureteral calculi. No pneumoperitoneum or pneumatosis. IMPRESSION: 1. Nasogastric tube terminates in the proximal stomach with the fenestrated line at the gastroesophageal junction. This should be advanced by approximately 5 cm. 2. Mildly dilated gas-filled loops of small bowel within the upper abdomen which favors a small bowel obstruction. ACT 112: Negative or not required by law. Electronically signed by: John Castanon M.D. 08/15/2022 10:17 AM
[2022-08-15] MEDS ORDERED: ASPIRIN 81 MG ECTAB PO SCH (21:00)
[2022-08-15] MEDS ORDERED: LANTUS PER UNIT CHARGE SQ SCH (21:00)
[2022-08-15] MEDS ORDERED: CETIRIZINE HCL 10 MG TABLET PO SCH (21:00)
--- NOTE | 2022-08-15 21:15 | Electrocardiogram Report ---
Test Reason : Blood Pressure : / mmHG Vent. Rate : 115 BPM Atrial Rate : 115 BPM P-R Int : 000 ms QRS Dur : 082 ms QT Int : 348 ms P-R-T Axes : 080 007 038 degrees QTc Int : 481 ms Atrial flutter with variable A-V block with premature ventricular or aberrantly conducted complexes Abnormal ECG When compared with ECG of 26-OCT-2018 18:35, Atrial flutter has replaced Sinus rhythm Vent. rate has increased BY 40 BPM Confirmed by Juancho Jama ([id number]) on 08/15/2022 9:15:20 PM Referred By: REFERRED SELF Confirmed By:Juancho Jama
[2022-08-16] MEDS: SODIUM CHLORIDE 0.9% 1000ML 1,000 ML IV SCH (05:17)
[2022-08-16 06:27] LABS: Basophils # (auto) 0.08 K/uL (0-0.2); Basophils % (auto) 0.9 %; Eosinophils # (auto) 0.06 K/uL (0-0.50); Eosinophils % (auto) 0.7 %; Hemoglobin 15.6 g/dl (14.0-18.0); Immature Granulocytes % (auto) 2.2 %; Lymphocytes # (auto) 2.13 K/uL (1.2-3.4); Lymphocytes % (auto) 23.5 %; Mean Corpuscular Hemoglobin 31.8 pg (25.0-34.0); Mean Corpuscular Hgb Conc 35.5 g/dL (32.0-36.0); Mean Corpuscular Volume 89.8 fL (80.0-100.0); Mean Platelet Volume 11.4 fL (9.4-12.4); Monocytes # (auto) 0.95 K/uL (0.24-0.82); Monocytes % (auto) 10.5 %; Neutrophils # (auto) 5.66 K/uL (1.4-6.5); Neutrophils % (auto) 62.2 %; Platelet Count 158 K/uL (130-400); RDW Coefficient of Variation 13.2 % (11.5-14.5); RDW Standard Deviation 43.1 fL (36.4-46.3); White Blood Count 9.08 K/ul (4.8-10.8)
[2022-08-16 07:10] LABS: BUN Creatinine Ratio 15.8 (10-20); Calcium 8.7 mg/dl (8.5-10.1); Creatinine Clr Calc Pharmacy 116.8 ml/min; Est GFR (African American) 107.1 ml/min; Est GFR (Non-African American) 92.4 ml/min
[2022-08-16] MEDS: INSULIN ASPART PER UNIT SC SCH (07:13)
[2022-08-16] MEDS ORDERED: INSULIN ASPART PER UNIT SC SCH (07:30)
[2022-08-16] MEDS: METOPROLOL SUCC 50MG EXT REL TAB PO SCH (08:37)
[2022-08-16] MEDS: MAGNESIUM OXIDE 400 MG TAB PO SCH (08:38)
[2022-08-16] MEDS: APIXABAN 5 MG TABLET PO SCH (08:38)
--- NOTE | 2022-08-16 09:13 | Communication Note ---
Date of Service: August 16, 2022 By CMS guidelines, a determination that the admission or continued stay is not medically necessary has been made by a member of the UR committee and a ph ysician for this hospital stay, therefore a Code 44 will be completed and the Inpatient admission will be changed to outpatient. Luis Silverman MD Member, Utilization Review Committee
--- NOTE | 2022-08-16 14:59 | Discharge Summary ---
Date of Service August 16, 2022 Admission HPI Per Admitting Provider A 71-year-old male with past medical history significant for paroxysmal atrial fibrillation, status post ablation x3, on chronic anticoagulation, CAD status post bare metal stent to LAD, hypertension, hyperlipidemia, sleep apnea with BiPAP, COPD, metabolic syndrome, cervical disk disease, fibromyalgia, GERD, restless legs syndrome, history of cholesteatoma left mastoid, diabetes, GERD, irritable bowel syndrome, who was recently diagnosed with COVID, comes with abdominal pain and found to have a small bowel obstruction. The patient says he has COVID symptoms of generalized weakness, headache, some mild cough, low-grade temperature. Symptoms started on Thursday, diagnosed on Thursday, seemed to get better after 2-3 days, then he started to have bloating and abdominal cramping, he knows that he has adhesions from previous bowel surgeries came to the hospital and found to have small bowel obstruction. He had one episode of diarrhea, but the diarrhea resolved, and last bowel movement was yesterday. Currently, no headache, no dizziness, occasional blurred visions, no earache, no runny nose, no sore throat. Currently, no cough, no chest pain, no shortness of breath. Has some nausea, abdominal pain improved with pain medication in the ER. Normal bladder movements. Resting comfortably and hemodynamically stable. Admission Exam Per Admitting Provider GENERAL: The patient is of moderate built, not in acute distress. VITAL SIGNS: Temperature 36, pulse 90, respiratory rate 20, blood pressure 96/73, oxygen 96% on room air. HEENT: Pupils equal, round and reactive to light. Oral mucosa moist. NECK: No JVD, no neck masses. CARDIOVASCULAR: S1 and S2 heard. Regular rate and rhythm. No murmur, no gallop. RESPIRATORY SYSTEM: Normal AP diameter. No accessory muscle use. No wheezing or crackles. ABDOMEN: Soft, bowel sounds sluggish. Mild distention. Mild discomfort. No guarding. No rigidity. CENTRAL NERVOUS SYSTEM: Cranial nerves II-XII grossly intact, nonfocal. EXTREMITIES: No edema, no erythema. Principal Diagnosis COVID-19 infection Small bowel obstruction Discharge Exam Gen: WD/WN, NAD, sitting in bed, A&Ox3, obese HEENT: Normocephalic, atraumatic, conjunctivae moist, sclerae anicteric, mucous membranes moist Lung: Clear to Auscultation bilaterally, no wheezes/rales/rhonchi Heart: Regular rate, regular rhythm, no murmurs, rubs, or gallops Abdomen: Soft, NT, ND, hypoactive bowel sounds Extremities: no edema Skin: Warm, no rash Discharge Data Allergies Allergy/AdvReac Type Severity Reaction Status Date / Time Influenza Virus Vaccines Allergy Unknown SICK FOR 2 Verified 02/18/22 10:54 WEEKS AFTERWARD Iodinated Contrast Media Allergy Unknown RASH Verified 02/18/22 10:54 latex Allergy Unknown RASH Verified 02/18/22 10:54 morphine Allergy Unknown RASH AND Verified 02/18/22 10:54 SWELLING atorvastatin AdvReac Unknown Muscle Pain Verified 02/18/22 10:54 doxycycline AdvReac Unknown BODY ACHES Verified 02/18/22 10:54 metformin AdvReac Unknown Diarrhea, Verified 02/18/22 10:54 ABDOMINAL PAIN oxycodone AdvReac Unknown GI UPSET Verified 02/18/22 10:54 Consultations 08/15/22 00:38 ED Decision to Admit Stat 08/15/22 08:00 Consult General Surgery Routine Ordered Studies 08/14/22 21:59 CT abd pelvis wo con Stat Hospital Course (1) SBO (small bowel obstruction): (2) COVID-19: (3) Atrial fibrillation: (4) Type 2 diabetes mellitus with insulin therapy: (5) Obesity (BMI 30-39.9): Plan This is a 71yo M with a PMH of paroxysmal atrial fibrillation, status post ablation x3, on chronic anticoagulation, CAD status post bare metal stent to LAD, hypertension, hyperlipidemia, sleep apnea with BiPAP, COPD, metabolic syndrome, cervical disk disease, fibromyalgia, GERD, restless legs syndrome, history of cholesteatoma left mastoid, diabetes, GERD, irritable bowel syndrome, who was recently diagnosed with COVID, comes with abdominal pain. CT abdomen and pelvis showed possible small bowel obstruction. Patient was started on NG to to suction, IV hydration and surgery was consulted. Surgery recommended patient is less likely to have small bowel obstruction as he was passing flatus and was having diarrhea. Patient NG tube was removed and patient was started on clear liquid. The diet was advanced as tolerated. Patient tolerated general diet and was discharged home. Patient was also found to have COVID-19 infection. He did not require any supplemental oxygen throughout the hospitalization and was asymptomatic. Total Time Total Time Spent Total Time Spent (In Minutes): 25 Total Time Includes: Examination of the Patient, Discharge Planning, Medication Reconciliation, Communication With Other Providers and Other Discharge Plan Discharge Items Patient Disposition: Home - Self-Care Reason For Visit: ABDOMINAL PAIN Discharge Diagnosis: Covid 19 infection Condition on Discharge: Good Activity: Resume your previous activity Non-emergency contact: Primary Care Provider Call non-emergency contact if: you have any medication questions and your symptoms worsen Follow-up/Referrals: Tyler Merritt DO [Primary Care Provider] - Diet: Regular Addtl Attending Provider Instructions: You were admitted to the hospital with COVID-19 infection. Please continue to practice social distancing for 5 more days. There are no medication changes made to your regimen. Please follow-up with your primary care doctor. Pending Studies at Discharge: No Stand-Alone Forms: [employer] Travel, Smoking Cessation Medications and DC Order Prescriptions: Continued (DME) pen needle, diabetic [BD Aisha 2nd Gen Pen Needle] 32 gauge x 5/32" needle See Rx Instructions .ROUTE .MEDSUPPLY Qty: 500 3RF Rx Instructions: use 5 x daily Toujeo Max U-300 SoloStar 300 unit/mL (3 mL) insulin pen 74 unit SQ HS 90 Days Qty: 24 3RF (DME) OneTouch Verio test strips Strip See Dose Instructions .ROUTE .MEDSUPPLY Qty: 400 3RF Dose Instruction: As directed Rx Instructions: use 4 strips daily to test blood sugars cyanocobalamin (vitamin B-12) 1,000 mcg tablet, sublingual 1,000 mcg SL DAILY ascorbic acid (vitamin C) 500 mg capsule 500 mg PO DAILY insulin aspart U-100 [Novolog Flexpen U-100 Insulin] 100 unit/mL (3 mL) insulin pen 8 - 30 unit subcut UD Label Comments: SLIDING SCALE Rx Instructions: inject per sliding scale metoprolol succinate 50 mg tablet extended release 24 hr 50 mg PO BID acetaminophen [Tylenol Extra Strength] 500 mg Tablet 500 mg PO Q6H PRN (Reason: ACHES AND PAINS) docusate sodium 100 mg Capsule 100 mg PO UD PRN (Reason: Constipation) apixaban 5 mg tablet 5 mg PO BID magnesium oxide 400 mg magnesium Tablet 400 mg PO QAM aspirin [Ecotrin Low Strength] 81 mg Tablet,Delayed Release (Dr/Ec) 81 mg PO HS cetirizine [Zyrtec] 10 mg Tablet 10 mg PO HS multivitamin Tablet 1 tab PO QAM fluticasone propionate [Flonase Allergy Relief] 50 mcg/actuation [place],Suspension 2 spray Intranasal UD PRN (Reason: Nasal Congestion) Label Comments: 2 SPRAYS IN EACH NOSTRIL rosuvastatin 40 mg tablet 40 mg PO HS calcium carbonate-vitamin D3 [Calcium 600 with Vitamin D3] 600 mg(1,500mg) - 400 unit capsule 1 cap PO BID Label Comments: 1 tab PO BID; Rx Instructions: 1 tab PO BID; omeprazole 20 mg tablet,delayed release (DR/EC) 40 mg PO QAM potassium chloride [Klor-Con 10] 10 mEq tablet extended release 10 meq PO 3XWK Label Comments: MON, THU , THU Rx Instructions: 3 days per week (--) hydrocortisone [Procto-Med HC] 2.5 % Cream With Perineal Applicator 1 applic [place] UD PRN (Reason: HEMERRHOIDS) diclofenac sodium 1 % Gel 2 g TOPICAL UD PRN (Reason: BONE SPUR) meclizine 25 mg Tablet 25 mg PO UD PRN (Reason: NAUSEA, DIZZINESS) Lagevrio (EUA) 200 mg capsule 800 mg PO BID Discharge Orders: Discharge Order (Routine); Ordered 08/16/22 Ordered By: Kana Del Rio Admission Data Admit Date/Time: 08/15/22 03:16 Attending Provider: Kana Del Rio Admit Provider: Kadeem Iverson Primary Care Provider: Tyler Merritt Other Providers: Kadeem Iverson ; Enrique Moeller ; Talon Church ; Shi Gonzalez ; Jenn Castrejon ; Jordy Dow ; Sulaiman Arteaga ; Gertrude Miguel ; Elisha Villalpando ; Isrrael Narayanan Jr ; Sunil Bauer ; Armin Langston ; Jayda Love ; Yusra Ornelas Other Interventions: Discharge Summary Assessment (RN) Last Done: 08/16/22 09:25
== END 2022-08-16 10:15 | disposition home or self-care (01) ==
LOC: ED 19:32 → EDINP 08-15 03:16 → SUATTDRO 08-15 03:16 → INTOOBSV 08-15 03:16 → 2W 08-15 06:06

== ENCOUNTER 2024-06-09 18:01 | Observation (INO) ==
--- NOTE | 2024-06-09 18:15 | Emergency Department Note ---
Impression & Plan Acute flank pain, Back pain, High serum chloride ED Provider Note NAME: SAMANTHA ALCOCER AGE: 73 SEX: M : 1950 ARRIVES VIA: Ambulance INFORMANT: Patient ED PROVIDER(S): Stoney Polo DO CHIEF COMPLAINT: Right flank and back pain HPI: Patient is a 73-year-old male who presents to the ER with a past medical history right flank and back pain. He notes he has had trouble with this over the past years. He was in the car and could not get out as the pain in his lower back radiating to his right groin was severe. Is worse with any kind of movement. Denies any weakness or numbness in the legs. No headache or change in vision. No chest pain or shortness of breath. No dysuria, urgency or frequency. No other exacerbating or remitting factors. No trauma or falls. ADDITIONAL HISTORY OBTAINED: Per HPI Chronic Medical/Social Conditions Affecting Care: Per HPI PAST MEDICAL HISTORY:See Below PAST SURGICAL HISTORY:See Below FAMILY HISTORY:See Below SOCIAL HISTORY:See Below HOME MEDICATIONS:See Below ALLERGIES:See Below VITALS:See Below PHYSICAL EXAMINATION: GENERAL: Sitting up in bed, alert, well appearing, well nourished, no distress, non-toxic EYE EXAM: normal conjunctiva. PERRL and EOM's grossly intact. OROPHARYNX: no exudate, no erythema, lips, buccal mucosa, and tongue normal and mucous membranes are moist NECK: supple, no nuchal rigidity, no adenopathy, non-tender LUNGS: Clear to auscultation. Normal chest wall mechanics HEART: no murmurs, S1 normal and S2 normal ABDOMEN: abdomen soft, non-tender, normo-active bowel sounds, no masses, no rebound or guarding. BACK: Back is symmetrical on inspection and there is no deformity, no midline tenderness, but tenderness in the right SI joint tracking to the right gluteus and hip UPPER EXTREMITIES: upper extremities are grossly normal. LOWER EXTREMITIES: Flexion-extension bilateral hips knees ankles and EHL intact. Significant pain with flexion of the right hip. NEURO EXAM: Normal sensorium, cranial nerves II-XII grossly intact, normal speech, no gross weakness of arms, no gross weakness of legs. MEDICAL DECISION MAKING: Patient is a 73-year-old male who presents ER for right lower back pain which wraps around to the right groin. IV was established blood work was obtained. Labs show no significant leukocytosis or anemia. BMP with slightly elevated chloride at 108. LFTs bilirubin was unremarkable. Lipase was normal. CT of the lumbar spine and abdomen pelvis showed no acute pathology with the exception of a left lower lobe subtle infiltrate. Chest x-ray was clean. Patient was given multiple doses of Dilaudid as well as Zofran and Toradol and steroids. Patient was unable to ambulate was discussed with the hospitalist for further evaluation management treatment. No respiratory symptoms will not treat at this time and defer to the hospitalist. Consults/Care Managements Discussions: Per [facility] Triage Nursing notes reviewed. Limited review of prior medical records performed Vital Signs: reviewed and remarkable for no significant abnormalities Differential diagnosis: Musculoskeletal, disc herniation, fracture, metastatic disease, cord compression, discitis, sciatica, cauda equina, infection, aortic disease, renal colic, gastrointestinal, as well as other pathologies. ER treatment provided: See below Diagnostics interpreted by me include EKG and cardiac monitoring as listed below: -Cardiac Monitoring: An order was placed for continuous cardiac monitoring. The monitor shows a rate of 101 with sinus rhythm. -ECG: none -Laboratory studies:Interpreted by me as stated above in MDM and shown below. Imaging studies: Xrays: As interpreted by me: Portable AP upright 1 view of the chest shows no focal Lutrate CTs show: CT abdomen pelvis and lumbar spine were unremarkable with exception of a questionable infiltrate Procedures:none Critical Care: None Past Med/Surg History Problem List (Updated 06/09/24 @ 22:47 by Stoney Polo DO) High serum chloride (Acute) Back pain (Acute) Acute flank pain (Acute) Blood blister Chest pain (Chronic) IFRAH on CPAP (Chronic 09/26/14) Myalgia (Acute) Chest pain (Acute) A-fib (Acute) H/O prior ablation treatment (Acute) Stented coronary artery (Acute) Atrial fibrillation with RVR (Acute) Flu-like symptoms (Acute) Encounter for pre-operative examination Family history of polyps in the colon Type 2 diabetes mellitus with insulin therapy Obesity (BMI 30-39.9) Diffuse abdominal pain (Acute) SBO (small bowel obstruction) (Acute) COVID-19 (Acute) Medical History Atrial fibrillation DX 2005 ? , follows with Dr. Diaz, HX 2 CARDIOVERSIONS CAD (coronary artery disease) (09/26/14) Chronic constipation Degenerative disc disease Depression no meds Diabetes mellitus, type 2 Diarrhea "comes and goes" Diverticular disease Elevated liver enzymes Excessive thirst ONGOING "IT'S BEEN FOREVER" NOTICE IT FIRST THING IN THE MORNING GERD (gastroesophageal reflux disease) Hiatal hernia History of anesthesia reaction PER PT WITH HEAVY ANESTHESIA GI MOTILITY SLOWS DOWN History of atrial flutter History of cardioversion x2--last one 09/26/2013 History of COVID-19 07/2022, home test and pcr test [facility]-admitted for 2 days; intestinal symptoms- given antiviral>resolved. History of dizziness RESOLVED History of ileus HTN (hypertension) (09/26/14) Hx of hemorrhoids "currently having a lot of bleeding from his hemorrhoids" Hyperlipidemia (09/26/14) Nausea and vomiting after administration of anesthetic agent On anticoagulant therapy on eliquis Osteoarthritis Partial small bowel obstruction (11/28/13) hx Sciatic nerve pain Sleep apnea BIPAP Tortuous colon BORN WITH Surgical History History of appendectomy History of cardiac cath 2008, [facility], x1 stentl; f/u dr diaz, s History of cardiac radiofrequency ablation x3--/[place] [facility] [place] History of cataract surgery bilat. History of cholecystectomy History of colonoscopy pt stated that he needs the "pediatric scope" History of esophagogastroduodenoscopy (EGD) History of eye surgery x2--bug removal and piece of tree History of heart artery stent 2007--[facility] History of liver biopsy d/t elevated liver functions--"was ok" History of tonsillectomy and adenoidectomy History of wisdom tooth extraction Hx of right inguinal hernia repair Family History Sister Breast cancer Colonic polyp Mother CHF (congestive heart failure) Father CHF (congestive heart failure) Aneurysm Other No family history of adverse response to anesthesia Past medical history not known due to adoption Social History Smoking Status: Never smoker 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); Do You Dip or Chew Tobacco: No; Hx Alcohol Use: Yes Alcohol type: wine Hx Substance Use: No Preferred Language: Macedonian Communication Ability: Effective 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 Beliefs That Will Affect Care: None marital status: Current Living Situation: Spouse Feels Safe at Home: Yes Assistive Devices: BiPap and Glasses Allergies Allergies Allergy/AdvReac Type Severity Reaction Status Date / Time doxycycline Allergy Intermediate Rash Verified 06/09/24 18:44 Iodinated Contrast Media Allergy Intermediate RASH Verified 06/09/24 18:44 latex Allergy Intermediate RASH Verified 06/09/24 18:44 morphine Allergy Intermediate RASH AND Verified 06/09/24 18:44 SWELLING atorvastatin AdvReac Intermediate Muscle Pain Verified 06/09/24 18:44 Influenza Virus Vaccines AdvReac Intermediate SICK FOR 2 Verified 06/09/24 18:44 WEEKS AFTERWARD metformin AdvReac Intermediate Diarrhea, Verified 06/09/24 18:44 ABDOMINAL PAIN oxycodone AdvReac Intermediate GI UPSET Verified 06/09/24 18:44 simvastatin AdvReac Intermediate Muscle Pain Verified 06/09/24 18:44 Home Meds Home Medications Medication Instructions Recorded Confirmed apixaban 5 mg tablet 5 mg PO BID 10/26/18 06/09/24 aspirin 81 mg tablet,delayed 81 mg PO HS 10/26/18 06/09/24 release (Ecotrin Low Strength) cetirizine 10 mg tablet (Zyrtec) 10 mg PO HS 10/26/18 06/09/24 fluticasone propionate 50 2 spray intranasal DAILY 10/26/18 06/09/24 mcg/actuation nasal spray,suspension (Flonase Allergy Relief) magnesium oxide 400 mg PO QAM 10/26/18 06/09/24 rosuvastatin 40 mg tablet 40 mg PO HS 10/26/18 06/09/24 omeprazole 20 mg tablet,delayed 40 mg PO QAM 05/15/20 06/09/24 release ascorbic acid (vitamin C) 500 mg 500 mg PO QAM 02/18/21 06/09/24 capsule cyanocobalamin (vitamin B-12) 1,000 mcg sublingual QAM 02/18/21 06/09/24 1,000 mcg sublingual tablet hydrocortisone 2.5 % topical cream 1 applic MT UD PRN Hemorrhoids 11/01/21 06/09/24 with perineal applicator (Procto-Med HC) metoprolol succinate 50 mg 25 mg PO BID 02/18/22 06/09/24 tablet,extended release 24 hr docusate sodium 100 mg capsule 100 mg PO DAILY 05/24/24 06/09/24 acetaminophen 325 mg tablet 650 mg PO BID PRN Pain 06/09/24 06/09/24 (Tylenol) clobetasol 0.05 % scalp solution 1 applic topical BID PRN SKIN 06/09/24 06/09/24 IRRITATIONS empagliflozin 25 mg tablet 25 mg PO DAILY 06/09/24 06/09/24 (Jardiance) insulin aspart U-100 100 unit/mL 25 unit subcut TID 06/09/24 06/09/24 (3 mL) subcutaneous pen (Novolog FlexPen U-100 Insulin aspart) insulin glargine U-300 conc 300 72 unit subcut DAILY 06/09/24 06/09/24 unit/mL (1.5 mL) subcutaneous pen (Toujeo SoloStar U-300 Insulin) mineral oil (Mineral Oil Heavy 15 ml PO DAILY PRN Constipation 06/09/24 06/09/24 oral) potassium chloride 20 mEq 10 meq PO 4XWK 06/09/24 06/09/24 tablet,extended release triamcinolone acetonide 0.1 % 1 applic topical BID PRN SKIN 06/09/24 06/09/24 topical cream IRRITATIONS Previous Rx's Medication Instructions Recorded OneTouch Verio test strips (blood #400 ea 06/03/22 sugar diagnostic) Dexcom G7 Sensor (blood-glucose #9 ea 05/24/24 sensor) pen needle, diabetic 32 gauge x #500 ea 05/24/24 5/32" (BD Aisha 2nd Gen Pen Needle) Results & Data (ED) Vital Signs Vital Signs - 24 hr 06/09/24 18:13 06/09/24 18:21 06/09/24 18:25 Temperature 36.8 C Temperature Source Oral Pulse Rate 107 H 110 H Pulse Rate [Apical] Pulse Rhythm [Apical] Pulse Strength [Apical] Respiratory Rate 17 Respiratory Effort / Characteristics Non-Labored Spontaneous Respiratory Depth Normal Respiratory Pattern Blood Pressure 125/90 Blood Pressure [Right Arm] Blood Pressure Mean 101 Blood Pressure Mean [Right Arm] Pulse Oximetry 93 93 Oxygen Delivery Method Room Air Room Air Sepsis Recent Fever Within 48 Hours No Sepsis New/Unexplained Change in Mental Status No Sepsis Action Taken by Nursing No Action Required 06/09/24 19:00 06/09/24 19:43 06/09/24 20:00 Temperature Temperature Source Pulse Rate 88 89 Pulse Rate [Apical] 102 H Pulse Rhythm [Apical] Regular Pulse Strength [Apical] Normal Respiratory Rate 20 17 Respiratory Effort / Characteristics Non-Labored Spontaneous Respiratory Depth Normal Respiratory Pattern Regular Blood Pressure 135/85 Blood Pressure [Right Arm] 136/83 Blood Pressure Mean 101 Blood Pressure Mean [Right Arm] 100 Pulse Oximetry 94 92 Oxygen Delivery Method Room Air Sepsis Recent Fever Within 48 Hours Sepsis New/Unexplained Change in Mental Status Sepsis Action Taken by Nursing 06/09/24 21:00 06/09/24 22:00 Temperature Temperature Source Pulse Rate 99 H 110 H Pulse Rate [Apical] Pulse Rhythm [Apical] Pulse Strength [Apical] Respiratory Rate 16 15 Respiratory Effort / Characteristics Respiratory Depth Respiratory Pattern Blood Pressure 127/95 122/97 Blood Pressure [Right Arm] Blood Pressure Mean 105 105 Blood Pressure Mean [Right Arm] Pulse Oximetry 94 94 Oxygen Delivery Method Sepsis Recent Fever Within 48 Hours Sepsis New/Unexplained Change in Mental Status Sepsis Action Taken by Nursing Laboratory Data 06/09/24 18:10 06/09/24 18:10 Lab Results 06/09/24 06/09/24 Range/Units 18:10 19:09 WBC 8.04 (4.8-10.8) K/ul RBC 5.51 (4.70-6.10) M/uL Hgb 17.7 (14.0-18.0) g/dl Hct 49.8 (42.0-52.0) % MCV 90.4 (80.0-100.0) fL MCH 32.1 (25.0-34.0) pg MCHC 35.5 (32.0-36.0) g/dL RDW Std Deviation 43.9 (36.4-46.3) fL RDW Coeff of Dominic 13.2 (11.5-14.5) % Plt Count 151 (130-400) K/uL MPV 11.6 (9.4-12.4) fL Immature Gran % (Auto) 0.9 % Neut % (Auto) 67.6 % Lymph % (Auto) 21.1 % Nance % (Auto) 8.1 % Eos % (Auto) 1.4 % Baso % (Auto) 0.9 % Neut # (Auto) 5.44 (1.40-6.50) K/uL Lymph # (Auto) 1.70 (1.20-3.40) K/uL Nance # (Auto) 0.65 H (0.11-0.59) K/uL Eos # (Auto) 0.11 (0.00-0.50) K/uL Baso # (Auto) 0.07 (0.00-0.20) K/uL Immature Gran # (Auto) 0.07 (0.01-0.20) K/uL Sodium 141 (136-145) mmol/L Potassium 4.2 (3.5-5.1) mmol/L Chloride 108 H (98-107) mmol/L Carbon Dioxide 22 (21-32) mmol/L Anion Gap 11 (3-11) BUN 17 (6-23) mg/dl Creatinine 1.11 (0.6-1.4) mg/dl Est Cr Clr Drug Dosing Not Reportable Est GFR ( Amer) 76.5 ml/min Est GFR (Non-Af Amer) 66.0 ml/min BUN/Creatinine Ratio 15.3 (10-20) Glucose 158 H (70-99(Fasting)) mg/dl Calcium 10.3 (8.6-10.3) mg/dl Total Bilirubin 0.6 (0.2-1.0) mg/dl AST 34 (13-39) U/L ALT 39 (7-52) U/L Alkaline Phosphatase 94 (34-104) U/L Total Creatine Kinase 46 (30-223) U/L Total Protein 8.0 (6.0-8.3) gm/dl Albumin 4.8 (3.4-5.0) gm/dl Globulin 3.2 (2.5-4.0) gm/dl Albumin/Globulin Ratio 1.5 (0.9-2) Lipase 26 (11-82) U/L Urine Color Yellow Urine Appearance Clear (Clear) Urine pH 5.5 (4.5-7.5) Ur Specific [place] 1.035 H (1.000-1.030) Urine Protein Negative (Negative) Urine Glucose (UA) 3+ H (Negative) Urine Ketones Negative (Negative) Urine Blood Trace H (Negative) Urine Nitrite Negative (Negative) Urine Bilirubin Negative (Negative) Urine Urobilinogen Negative (Negative) Ur Leukocyte Esterase Negative (Negative) Urine WBC (Auto) 0-5 (0-5) /hpf Urine RBC (Auto) 6-10 H (0-2) /hpf U Hyaline Cast (Auto) 0-2 (0-2) /lpf U Epithel Cells (Auto) 0-2 (0-2) /hpf Urine Bacteria (Auto) None Seen (None Seen) Administered Medications Lactated Ringer's (Lr) 1,000 mls @ 60 mls/hr IV .[id number] ONE Stop: 06/10/24 14:07 Last Admin: 06/09/24 21:46 Dose: 60 mls/hr Documented By: DEANDRE Discontinued Medications Hydromorphone HCl (Hydromorphone Inj 0.5 Mg/0.5 Ml Syr) 0.5 mg IV NOW STA Stop: 06/09/24 18:13 Last Admin: 06/09/24 18:37 Dose: 0.5 mg Documented By: CLAUDIA Hydromorphone HCl (Hydromorphone Inj 0.5 Mg/0.5 Ml Syr) 0.5 mg IV NOW STA Stop: 06/09/24 21:14 Last Admin: 06/09/24 21:24 Dose: 0.5 mg Documented By: DEANDRE Sodium Chloride (Nss) 500 mls @ 999 mls/hr IV .[id number] ONE Stop: 06/09/24 18:42 Last Infusion: 06/09/24 20:08 Dose: Infused Documented By: Admin: 06/09/24 18:37 Dose: 999 mls/hr Documented By: CLAUDIA Ketorolac Tromethamine (Ketorolac Tromethamine 15 Mg/Ml Vial) 10 mg IV NOW ONE Stop: 06/09/24 21:14 Last Admin: 06/09/24 21:23 Dose: 10 mg Documented By: DEANDRE Methylprednisolone (Methylprednisolone 125 Mg/2 Ml Vial) 40 mg IV NOW STA Stop: 06/09/24 21:14 Last Admin: 06/09/24 21:23 Dose: 40 mg Documented By: DEANDRE Imaging Data Radiologist's Impression: Abdomen/Pelvis CT 06/09/24 18:12 Exam(s): CT ABDOMEN + PELVIS Without Contrast EXAM: CT Abdomen and Pelvis Without Intravenous Contrast CLINICAL HISTORY: Reason for exam: r flank pain. TECHNIQUE: Axial computed tomography images of the abdomen and pelvis without intravenous contrast. CTDI is 27.74 mGy and DLP is 1450.45 mGy-cm. Automated exposure control was utilized for the study. A dose lowering technique was utilized adhering to the principles of ALARA. COMPARISON: CT abdomen pelvis 08/14/22. FINDINGS: Lung bases: Moderate cardiomegaly, mild vascular prominence and mild dependent infiltrate left lower lobe, with small, 6 mm pulmonary nodule. Liver: Somewhat small and lobular, possible cirrhosis. Gallbladder and bile ducts: Cholecystectomy. No ductal dilation. Pancreas: No ductal dilation. Spleen: Mildly enlarged, stable. Adrenals: Unremarkable. Kidneys and ureters: No renal stone or hydronephrosis. Stomach and bowel: Diverticulosis and moderate fecal loading of the colon, without acute diverticulitis. No obstruction. Appendix: Not seen. No acute appendicitis. Intraperitoneal space: No free air or fluid. Bones/joints: No acute fracture. Soft tissues: Unremarkable. Vasculature: No aortic aneurysm. Lymph nodes: No enlarged lymph nodes. Bladder: Moderately distended, nonspecific, may be physiologic cannot rule out urinary retention or bladder outlet obstruction. No stones. Reproductive: Mild, nonspecific prostatomegaly. IMPRESSION: 1. No acute intra-abdominal or intrapelvic abnormality. 2. Suspect cirrhosis with splenomegaly, correlate clinically. These findings are stable. 3. Prostatomegaly and distended urinary bladder, nonspecific, may be physiologic cannot rule out urinary retention or bladder outlet obstruction. 4. Mild left lower lobe infiltrate and small nodule, nonspecific. Electronically signed by: Ashlee De La Rosa M.D. 06/09/24 20:[address] 06/09/24 18:12 Exam(s): CT L SPINE EXAM: CT Lumbar Spine Without Intravenous Contrast CLINICAL HISTORY: Reason for exam: lower back pain and r flank pain. TECHNIQUE: Axial computed tomography images of the lumbar spine without intravenous contrast. CTDI is 27.74 mGy and DLP is 1450.45 mGy-cm. Automated exposure control was utilized for the study. A dose lowering technique was utilized adhering to the principles of ALARA. COMPARISON: None. FINDINGS: Vertebrae: Osteoporosis and degenerative change. No acute fracture. Discs/spinal canal/neural foramina: Severe degenerative change diffusely. Soft tissues: CT a/p also done, dictated separately. IMPRESSION: 1. No fracture or acute bony abnormality. Electronically signed by: Ashlee De La Rosa M.D. 06/09/24 20:44 PM Discharge Plan Visit Data Chief Complaint: Hip Pain Stated Complaint: R HIP PAIN ED Provider: Stoney Polo Discharge Problem: Acute flank pain, Back pain, High serum chloride Forms Stand Alone Forms: My [facility] Prescriptions Prescriptions: No Action (DME) OneTouch Verio test strips Strip See Dose Instructions .ROUTE .MEDSUPPLY Qty: 400 3RF Dose Instruction: As directed Rx Instructions: use 4 strips daily to test blood sugars cyanocobalamin (vitamin B-12) 1,000 mcg tablet, sublingual 1,000 mcg SL QAM ascorbic acid (vitamin C) 500 mg capsule 500 mg PO QAM metoprolol succinate 50 mg tablet extended release 24 hr 25 mg PO BID (DME) Dexcom G7 Sensor Device See Rx Instructions .Route Qty: 9 3RF Rx Instructions: change every 10 days (DME) pen needle, diabetic [BD Aisha 2nd Gen Pen Needle] 32 gauge x 5/32" needle See Rx Instructions .ROUTE .MEDSUPPLY Qty: 500 3RF Rx Instructions: use 5 x daily apixaban 5 mg tablet 5 mg PO BID magnesium oxide 400 mg magnesium Tablet 400 mg PO QAM aspirin [Ecotrin Low Strength] 81 mg Tablet,Delayed Release (Dr/Ec) 81 mg PO HS cetirizine [Zyrtec] 10 mg Tablet 10 mg PO HS fluticasone propionate [Flonase Allergy Relief] 50 mcg/actuation [place],Suspension 2 spray Intranasal DAILY Patient Comments: 2 SPRAYS IN EACH NOSTRIL-uses most every day rosuvastatin 40 mg tablet 40 mg PO HS omeprazole 20 mg tablet,delayed release (DR/EC) 40 mg PO QAM docusate sodium 100 mg capsule 100 mg PO DAILY Patient Comments: takes 1 time daily every day hydrocortisone [Procto-Med HC] 2.5 % Cream With Perineal Applicator 1 applic MT UD PRN (Reason: Hemorrhoids) mineral oil [Mineral Oil Heavy] Oil 15 ml PO DAILY PRN (Reason: Constipation) acetaminophen [Tylenol] 325 mg Tablet 650 mg PO BID PRN (Reason: Pain) triamcinolone acetonide 0.1 % Cream 1 applic TOPICAL BID PRN (Reason: SKIN IRRITATIONS) clobetasol 0.05 % solution 1 applic TOPICAL BID PRN (Reason: SKIN IRRITATIONS) Rx Instructions: DO NOT USE WITH TRIAMCINOLONE CREAM potassium chloride 20 mEq Tablet Extended Release 10 meq PO 4XWK Rx Instructions: TAKES SUN, TUES, THURS, & SAT. Jardiance 25 mg Tablet 25 mg PO DAILY insulin glargine U-300 conc [Toujeo SoloStar U-300 Insulin] 300 unit/mL (1.5 mL) Insulin Pen 72 unit SUBCUT DAILY insulin aspart U-100 [Novolog FlexPen U-100 Insulin] 100 unit/mL (3 mL) insulin pen 25 unit subcut TID Rx Instructions: inject per sliding scale Referrals Referrals: Soren Ansari MD [Outside Practitioners] - Discharge Problem: Back pain Qualifiers: Back pain location: low back pain Chronicity: acute Back pain laterality: right Sciatica presence: with sciatica Sciatica laterality: sciatica of right side Q ualified Code(s): M54.41 - Lumbago with sciatica, right side
[2024-06-09 18:29] LABS: Basophils # (auto) 0.07 K/uL (0.00-0.20); Basophils % (auto) 0.9 %; Eosinophils # (auto) 0.11 K/uL (0.00-0.50); Eosinophils % (auto) 1.4 %; Hematocrit (blood only) 49.8 % (42.0-52.0); Hemoglobin 17.7 g/dl (14.0-18.0); Immature Granulocytes # (auto) 0.07 K/uL (0.01-0.20); Immature Granulocytes % (auto) 0.9 %; Lymphocytes % (auto) 21.1 %; Mean Corpuscular Hemoglobin 32.1 pg (25.0-34.0); Mean Corpuscular Hgb Conc 35.5 g/dL (32.0-36.0); Mean Corpuscular Volume 90.4 fL (80.0-100.0); Mean Platelet Volume 11.6 fL (9.4-12.4); Monocytes # (auto) 0.65 K/uL (0.11-0.59); Monocytes % (auto) 8.1 %; Neutrophils # (auto) 5.44 K/uL (1.40-6.50); Neutrophils % (auto) 67.6 %; Platelet Count 151 K/uL (130-400); RDW Coefficient of Variation 13.2 % (11.5-14.5); RDW Standard Deviation 43.9 fL (36.4-46.3); Red Blood Count 5.51 M/uL (4.70-6.10); White Blood Count 8.04 K/ul (4.8-10.8)
[2024-06-09] MEDS: HYDROmorphone INJ 0.5 MG/0.5 ML SYR IV STA ×2 (18:37→21:24)
[2024-06-09] MEDS: SODIUM CHLORIDE 0.9% 500 ML IV ONE (18:37)
[2024-06-09 18:45] LABS: Alanine Aminotransferase 39 U/L (7-52); Albumin Globulin Ratio 1.5 (0.9-2); Albumin Level 4.8 gm/dl (3.4-5.0); Alkaline Phosphatase 94 U/L (34-104); Anion Gap 11 (3-11); Aspartate Aminotransferase 34 U/L (13-39); BUN Creatinine Ratio 15.3 (10-20); Bilirubin,Total 0.6 mg/dl (0.2-1.0); Blood Urea Nitrogen 17 mg/dl (6-23); Calcium 10.3 mg/dl (8.6-10.3); Carbon Dioxide 22 mmol/L (21-32); Chloride 108 mmol/L (98-107); Est GFR (African American) 76.5 ml/min; Globulin 3.2 gm/dl (2.5-4.0); Glucose 158 mg/dl (70-99(Fasting)); Lipase 26 U/L (11-82); Potassium 4.2 mmol/L (3.5-5.1); Sodium 141 mmol/L (136-145)
[2024-06-09 19:26] LABS: Appearance Urine Clear (Clear); Bacteria Urine Automated None Seen (None Seen); Bilirubin Urine Negative (Negative); Blood Urine Trace (Negative); Cast Urine Automated 0-2 /lpf (0-2); Color Urine Yellow; Epithelial Cell Urine Auto 0-2 /hpf (0-2); Glucose Urine UA 3+ (Negative); Ketones Urine Negative (Negative); Leukocyte Esterase Urine Negative (Negative); Nitrite Urine Negative (Negative); Protein Urine Negative (Negative); Specific Gravity Urine 1.035 (1.000-1.030); Urobilinogen Urine Negative (Negative); WBC Urine Automated 0-5 /hpf (0-5); pH Urine 5.5 (4.5-7.5)
--- NOTE | 2024-06-09 20:31 | CT Scan Report ---
Exam(s): CT ABDOMEN + PELVIS Without Contrast EXAM: CT Abdomen and Pelvis Without Intravenous Contrast CLINICAL HISTORY: Reason for exam: r flank pain. TECHNIQUE: Axial computed tomography images of the abdomen and pelvis without intravenous contrast. CTDI is 27.74 mGy and DLP is 1450.45 mGy-cm. Automated exposure control was utilized for the study. A dose lowering technique was utilized adhering to the principles of ALARA. COMPARISON: CT abdomen pelvis 08/14/22. FINDINGS: Lung bases: Moderate cardiomegaly, mild vascular prominence and mild dependent infiltrate left lower lobe, with small, 6 mm pulmonary nodule. Liver: Somewhat small and lobular, possible cirrhosis. Gallbladder and bile ducts: Cholecystectomy. No ductal dilation. Pancreas: No ductal dilation. Spleen: Mildly enlarged, stable. Adrenals: Unremarkable. Kidneys and ureters: No renal stone or hydronephrosis. Stomach and bowel: Diverticulosis and moderate fecal loading of the colon, without acute diverticulitis. No obstruction. Appendix: Not seen. No acute appendicitis. Intraperitoneal space: No free air or fluid. Bones/joints: No acute fracture. Soft tissues: Unremarkable. Vasculature: No aortic aneurysm. Lymph nodes: No enlarged lymph nodes. Bladder: Moderately distended, nonspecific, may be physiologic cannot rule out urinary retention or bladder outlet obstruction. No stones. Reproductive: Mild, nonspecific prostatomegaly. IMPRESSION: 1. No acute intra-abdominal or intrapelvic abnormality. 2. Suspect cirrhosis with splenomegaly, correlate clinically. These findings are stable. 3. Prostatomegaly and distended urinary bladder, nonspecific, may be physiologic cannot rule out urinary retention or bladder outlet obstruction. 4. Mild left lower lobe infiltrate and small nodule, nonspecific. Electronically signed by: Ashlee De La Rosa M.D. 06/09/24 20:30 PM
--- NOTE | 2024-06-09 20:44 | CT Scan Report ---
Exam(s): CT L SPINE EXAM: CT Lumbar Spine Without Intravenous Contrast CLINICAL HISTORY: Reason for exam: lower back pain and r flank pain. TECHNIQUE: Axial computed tomography images of the lumbar spine without intravenous contrast. CTDI is 27.74 mGy and DLP is 1450.45 mGy-cm. Automated exposure control was utilized for the study. A dose lowering technique was utilized adhering to the principles of ALARA. COMPARISON: None. FINDINGS: Vertebrae: Osteoporosis and degenerative change. No acute fracture. Discs/spinal canal/neural foramina: Severe degenerative change diffusely. Soft tissues: CT a/p also done, dictated separately. IMPRESSION: 1. No fracture or acute bony abnormality. Electronically signed by: Ashlee De La Rosa M.D. 06/09/24 20:44 PM
[2024-06-09] MEDS: KETOROLAC TROMETHAMINE 15 MG/ML VIAL IV ONE (21:23)
[2024-06-09] MEDS: methylPREDNISolone 125 MG/2 ML VIAL IV STA (21:23)
[2024-06-09] MEDS ORDERED: PROMETHAZINE HCL 12.5 MG in SODIUM CHLORIDE 0.9% 50 ML IV PRN (21:29)
[2024-06-09] MEDS ORDERED: oxyCODONE HCL IR 5 MG TAB (IMMEDIATE RELEASE) PO PRN (21:29)
[2024-06-09] MEDS: LACTATED RINGER'S 1,000 ML IV ONE (21:46)
[2024-06-09 21:48] LABS: Creatine Kinase 46 U/L (30-223)
--- NOTE | 2024-06-09 22:42 | History & Physical Report ---
Date of Service June 09, 2024 Assessment & Plan (1) Atrial flutter: Plan: Rapid atrial flutter secondary to lumbar radiculopathy History ablation on Eliquis hx CAD status post stent hypertension, stable hyperlipidemia, on statin Rx COPD, IFRAH on BiPAP, patient without pulmonary complaints DM 2 insulin requiring, well-controlled as of recent hemoglobin A1c of 5.5% Incidental finding of cirrhosis on imaging likely NAFLD past tobacco abuse OBS PCU IV Lopressor 1 dose now Analgesia, Lidoderm patch trial MRI lumbosacral spine if without improvement PT OT eval Basal bolus insulin, ISS BG goal 1 10-1 40, carb count coverage Outpatient GI consult for cirrhosis workup DVT prophylaxis. Eliquis Full code Patient requesting updates providers. Jyoti Nieves, contact #[phone]. Text document was generated using [employer] voice recognition software. It may contain grammatical or spelling errors. Kindly contact undersigned for clarification of any documentation item in question. History of Present Illness Chief Complaint: Worsening back pain, could not get out of car. Primary Care Provider: Nicolás Benedict MD History obtained from patient, family, and records. Medical history significant for CAD status post stent, history atrial flutter status post ablation on Eliquis, hypertension, hyperlipidemia, COPD, IFRAH on BiPAP, GERD, DM 2 insulin requiring, chronic back pain, RLS, past tobacco abuse. Last confinement August 2022 for SBO and COVID-19 infection. SBO resolved with conservative management. Patient noted worsening of chronic low back pain with radiation to lower extremities 2 days ago after working on sister's linoleum floor. No fever, no chills, no leg weakness, no incontinence. Trouble moving around and getting out of the car today. Denies headache, chest pain, SOB. Patient noted to be in rapid atrial flutter at the ER. 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 Allergies Allergy/AdvReac Type Severity Reaction Status Date / Time doxycycline Allergy Intermediate Rash Verified 06/09/24 18:44 Iodinated Contrast Media Allergy Intermediate RASH Verified 06/09/24 18:44 latex Allergy Intermediate RASH Verified 06/09/24 18:44 morphine Allergy Intermediate RASH AND Verified 06/09/24 18:44 SWELLING atorvastatin AdvReac Intermediate Muscle Pain Verified 06/09/24 18:44 Influenza Virus Vaccines AdvReac Intermediate SICK FOR 2 Verified 06/09/24 18:44 WEEKS AFTERWARD metformin AdvReac Intermediate Diarrhea, Verified 06/09/24 18:44 ABDOMINAL PAIN oxycodone AdvReac Intermediate GI UPSET Verified 06/09/24 18:44 simvastatin AdvReac Intermediate Muscle Pain Verified 06/09/24 18:44 Home Medications Medication Instructions Recorded Confirmed Type apixaban 5 mg tablet 5 mg PO BID 10/26/18 06/09/24 History aspirin 81 mg tablet,delayed 81 mg PO HS 10/26/18 06/09/24 History release (Ecotrin Low Strength) cetirizine 10 mg tablet (Zyrtec) 10 mg PO HS 10/26/18 06/09/24 History fluticasone propionate 50 2 spray intranasal DAILY 10/26/18 06/09/24 History mcg/actuation nasal spray,suspension (Flonase Allergy Relief) magnesium oxide 400 mg PO QAM 10/26/18 06/09/24 History rosuvastatin 40 mg tablet 40 mg PO HS 10/26/18 06/09/24 History omeprazole 20 mg tablet,delayed 40 mg PO QAM 05/15/20 06/09/24 History release ascorbic acid (vitamin C) 500 mg 500 mg PO QAM 02/18/21 06/09/24 History capsule cyanocobalamin (vitamin B-12) 1,000 mcg sublingual QAM 02/18/21 06/09/24 History 1,000 mcg sublingual tablet hydrocortisone 2.5 % topical cream 1 applic ND UD PRN Hemorrhoids 11/01/21 06/09/24 History with perineal applicator (Procto-Med ) metoprolol succinate 50 mg 25 mg PO BID 02/18/22 06/09/24 History tablet,extended release 24 hr OneTouch Verio test strips (blood #400 ea 06/03/22 05/24/24 Rx sugar diagnostic) Dexcom G7 Sensor (blood-glucose #9 ea 05/24/24 05/24/24 Rx sensor) docusate sodium 100 mg capsule 100 mg PO DAILY 05/24/24 06/09/24 History pen needle, diabetic 32 gauge x #500 ea 05/24/24 05/24/24 Rx 5/32" (BD Aisha 2nd Gen Pen Needle) acetaminophen 325 mg tablet 650 mg PO BID PRN Pain 06/09/24 06/09/24 History (Tylenol) clobetasol 0.05 % scalp solution 1 applic topical BID PRN SKIN 06/09/24 06/09/24 History IRRITATIONS empagliflozin 25 mg tablet 25 mg PO DAILY 06/09/24 06/09/24 History (Jardiance) insulin aspart U-100 100 unit/mL 25 unit subcut TID 06/09/24 06/09/24 History (3 mL) subcutaneous pen (Novolog FlexPen U-100 Insulin aspart) insulin glargine U-300 conc 300 72 unit subcut DAILY 06/09/24 06/09/24 History unit/mL (1.5 mL) subcutaneous pen (Toujeo SoloStar U-300 Insulin) mineral oil (Mineral Oil Heavy 15 ml PO DAILY PRN Constipation 06/09/24 06/09/24 History oral) potassium chloride 20 mEq 10 meq PO 4XWK 06/09/24 06/09/24 History tablet,extended release triamcinolone acetonide 0.1 % 1 applic topical BID PRN SKIN 06/09/24 06/09/24 History topical cream IRRITATIONS Past Med/Surg History Problem List (Updated 06/10/24 @ 03:53 by Bhupendra Lowe MD) Atrial flutter High serum chloride (Acute) Back pain (Acute) Acute flank pain (Acute) Blood blister Chest pain (Chronic) IFRAH on CPAP (Chronic 09/26/14) Myalgia (Acute) Chest pain (Acute) A-fib (Acute) H/O prior ablation treatment (Acute) Stented coronary artery (Acute) Atrial fibrillation with RVR (Acute) Flu-like symptoms (Acute) Encounter for pre-operative examination Family history of polyps in the colon Type 2 diabetes mellitus with insulin therapy Obesity (BMI 30-39.9) Diffuse abdominal pain (Acute) SBO (small bowel obstruction) (Acute) COVID-19 (Acute) Medical History Atrial fibrillation DX 2006 ? , follows with Dr. Diaz, HX 2 CARDIOVERSIONS CAD (coronary artery disease) (09/26/14) Chronic constipation Degenerative disc disease Depression no meds Diabetes mellitus, type 2 Diarrhea "comes and goes" Diverticular disease Elevated liver enzymes Excessive thirst ONGOING "IT'S BEEN FOREVER" NOTICE IT FIRST THING IN THE MORNING GERD (gastroesophageal reflux disease) Hiatal hernia History of anesthesia reaction PER PT WITH HEAVY ANESTHESIA GI MOTILITY SLOWS DOWN History of atrial flutter History of cardioversion x2--last one 09/26/2013 History of COVID-19 07/2022, home test and pcr test [facility]-admitted for 2 days; intestinal symptoms- given antiviral>resolved. History of dizziness RESOLVED History of ileus HTN (hypertension) (09/26/14) Hx of hemorrhoids "currently having a lot of bleeding from his hemorrhoids" Hyperlipidemia (09/26/14) Nausea and vomiting after administration of anesthetic agent On anticoagulant therapy on eliquis Osteoarthritis Partial small bowel obstruction (11/28/13) hx Sciatic nerve pain Sleep apnea BIPAP Tortuous colon BORN WITH Surgical History History of appendectomy History of cardiac cath 2007, [facility], x1 stentl; f/u dr diaz, [facility] History of cardiac radiofrequency ablation x3--/2010 for A-fib @ [facility] [place] History of cataract surgery bilat. History of cholecystectomy History of colonoscopy pt stated that he needs the "pediatric scope" History of esophagogastroduodenoscopy (EGD) History of eye surgery x2--bug removal and piece of tree History of heart artery stent 2007--[facility] History of liver biopsy d/t elevated liver functions--"was ok" History of tonsillectomy and adenoidectomy History of wisdom tooth extraction Hx of right inguinal hernia repair Family History Sister Breast cancer Colonic polyp Mother CHF (congestive heart failure) Father CHF (congestive heart failure) Aneurysm Other No family history of adverse response to anesthesia Past medical history not known due to adoption Social History Smoking Status: Never smoker 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); Do You Dip or Chew Tobacco: No; Hx Alcohol Use: Yes Alcohol type: beer Hx Substance Use: No Preferred Language: Mexican Communication Ability: Effective 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: No Beliefs That Will Affect Care: None marital status: Current Living Situation: Spouse Current Living Situation Comment: with , multiple story house Other Information That Helps Us Care for You: No Feels Safe at Home: Yes Safety Concerns: Feels Safe At This Time Assistive Devices: BiPap, Cane, Glasses, Hearing Aid - Bilateral and Walker Review of Systems Review of Systems: As per HPI, all other systems reviewed and negative Physical Exam Physical Exam: GENERAL: Comfortable, pleasant, obese, no respiratory distress SKIN: Normal color, warm HEENT: [place] palpebral conjunctivae, no ptosis, dry buccal mucosa NECK : Supple, short neck, no tenderness CHEST : CTA, no tenderness HEART : Tachycardic, no obvious murmurs ABDOMEN: Some distention, nontender BACK : Low back tenderness, positive straight leg raise R EXTREMITIES : Minimal LE swelling without LE tenderness, no other conspicuous deformities noted NEUROLOGIC : Coherent, no facial asymmetry, no other gross focality Results & Data Results & Data Vital Signs (Past 12 Hours) Vital Signs Temp Pulse Pulse Resp BP BP Pulse Ox 06/09/24 22:00 110 H 15 122/97 94 06/09/24 21:00 99 H 16 127/95 94 06/09/24 20:00 89 17 135/85 92 06/09/24 19:43 88 06/09/24 19:00 102 H 20 136/83 94 06/09/24 18:25 93 06/09/24 18:21 36.8 C 110 H 17 125/90 93 06/09/24 18:13 107 H O2 Del Method 06/09/24 22:00 06/09/24 21:00 06/09/24 20:00 06/09/24 19:43 06/09/24 19:00 Room Air 06/09/24 18:25 Room Air 06/09/24 18:21 Room Air 06/09/24 18:13 Laboratory Results Laboratory Results WBC 8.04 K/ul (4.8-10.8) 06/09/24 18:10 RBC 5.51 M/uL (4.70-6.10) 06/09/24 18:10 Hgb 17.7 g/dl (14.0-18.0) 06/09/24 18:10 Hct 49.8 % (42.0-52.0) 06/09/24 18:10 MCV 90.4 fL (80.0-100.0) 06/09/24 18:10 MCH 32.1 pg (25.0-34.0) 06/09/24 18:10 MCHC 35.5 g/dL (32.0-36.0) 06/09/24 18:10 RDW Std Deviation 43.9 fL (36.4-46.3) 06/09/24 18:10 RDW Coeff of Dominic 13.2 % (11.5-14.5) 06/09/24 18:10 Plt Count 151 K/uL (130-400) 06/09/24 18:10 MPV 11.6 fL (9.4-12.4) 06/09/24 18:10 Immature Gran % (Auto) 0.9 % 06/09/24 18:10 Neut % (Auto) 67.6 % 06/09/24 18:10 Lymph % (Auto) 21.1 % 06/09/24 18:10 Johnson % (Auto) 8.1 % 06/09/24 18:10 Eos % (Auto) 1.4 % 06/09/24 18:10 Baso % (Auto) 0.9 % 06/09/24 18:10 Neut # (Auto) 5.44 K/uL (1.40-6.50) 06/09/24 18:10 Lymph # (Auto) 1.70 K/uL (1.20-3.40) 06/09/24 18:10 Johnson # (Auto) 0.65 K/uL (0.11-0.59) H 06/09/24 18:10 Eos # (Auto) 0.11 K/uL (0.00-0.50) 06/09/24 18:10 Baso # (Auto) 0.07 K/uL (0.00-0.20) 06/09/24 18:10 Immature Gran # (Auto) 0.07 K/uL (0.01-0.20) 06/09/24 18:10 Sodium 141 mmol/L (136-145) 06/09/24 18:10 Potassium 4.2 mmol/L (3.5-5.1) 06/09/24 18:10 Chloride 108 mmol/L (98-107) H 06/09/24 18:10 Carbon Dioxide 22 mmol/L (21-32) 06/09/24 18:10 Anion Gap 11 (3-11) 06/09/24 18:10 BUN 17 mg/dl (6-23) 06/09/24 18:10 Creatinine 1.11 mg/dl (0.6-1.4) 06/09/24 18:10 Est Cr Clr Drug Dosing Not Reportable 06/09/24 18:10 Est GFR ( Amer) 76.5 ml/min 06/09/24 18:10 Est GFR (Non-Af Amer) 66.0 ml/min 06/09/24 18:10 BUN/Creatinine Ratio 15.3 (10-20) 06/09/24 18:10 Glucose 158 mg/dl (70-99(Fasting)) H 06/09/24 18:10 Calcium 10.3 mg/dl (8.6-10.3) 06/09/24 18:10 Total Bilirubin 0.6 mg/dl (0.2-1.0) 06/09/24 18:10 AST 34 U/L (13-39) 06/09/24 18:10 ALT 39 U/L (7-52) 06/09/24 18:10 Alkaline Phosphatase 94 U/L (34-104) 06/09/24 18:10 Total Creatine Kinase 46 U/L (30-223) 06/09/24 18:10 Total Protein 8.0 gm/dl (6.0-8.3) 06/09/24 18:10 Albumin 4.8 gm/dl (3.4-5.0) 06/09/24 18:10 Globulin 3.2 gm/dl (2.5-4.0) 06/09/24 18:10 Albumin/Globulin Ratio 1.5 (0.9-2) 06/09/24 18:10 Lipase 26 U/L (11-82) 06/09/24 18:10 Urine Color Yellow 06/09/24 19:09 Urine Appearance Clear (Clear) 06/09/24 19:09 Urine pH 5.5 (4.5-7.5) 06/09/24 19:09 Ur Specific [place] 1.035 (1.000-1.030) H 06/09/24 19:09 Urine Protein Negative (Negative) 06/09/24 19:09 Urine Glucose (UA) 3+ (Negative) H 06/09/24 19:09 Urine Ketones Negative (Negative) 06/09/24 19:09 Urine Blood Trace (Negative) H 06/09/24 19:09 Urine Nitrite Negative (Negative) 06/09/24 19:09 Urine Bilirubin Negative (Negative) 06/09/24 19:09 Urine Urobilinogen Negative (Negative) 06/09/24 19:09 Ur Leukocyte Esterase Negative (Negative) 06/09/24 19:09 Urine WBC (Auto) 0-5 /hpf (0-5) 06/09/24 19:09 Urine RBC (Auto) 6-10 /hpf (0-2) H 06/09/24 19:09 U Hyaline Cast (Auto) 0-2 /lpf (0-2) 06/09/24 19:09 U Epithel Cells (Auto) 0-2 /hpf (0-2) 06/09/24 19:09 Urine Bacteria (Auto) None Seen (None Seen) 06/09/24 19:09 Impressions Abdomen/Pelvis CT 06/09/24 18:12 Exam(s): CT ABDOMEN + PELVIS Without Contrast EXAM: CT Abdomen and Pelvis Without Intravenous Contrast CLINICAL HISTORY: Reason for exam: r flank pain. TECHNIQUE: Axial computed tomography images of the abdomen and pelvis without intravenous contrast. CTDI is 27.74 mGy and DLP is 1450.45 mGy-cm. Automated exposure control was utilized for the study. A dose lowering technique was utilized adhering to the principles of ALARA. COMPARISON: CT abdomen pelvis 08/14/22. FINDINGS: Lung bases: Moderate cardiomegaly, mild vascular prominence and mild dependent infiltrate left lower lobe, with small, 6 mm pulmonary nodule. Liver: Somewhat small and lobular, possible cirrhosis. Gallbladder and bile ducts: Cholecystectomy. No ductal dilation. Pancreas: No ductal dilation. Spleen: Mildly enlarged, stable. Adrenals: Unremarkable. Kidneys and ureters: No renal stone or hydronephrosis. Stomach and bowel: Diverticulosis and moderate fecal loading of the colon, without acute diverticulitis. No obstruction. Appendix: Not seen. No acute appendicitis. Intraperitoneal space: No free air or fluid. Bones/joints: No acute fracture. Soft tissues: Unremarkable. Vasculature: No aortic aneurysm. Lymph nodes: No enlarged lymph nodes. Bladder: Moderately distended, nonspecific, may be physiologic cannot rule out urinary retention or bladder outlet obstruction. No stones. Reproductive: Mild, nonspecific prostatomegaly. IMPRESSION: 1. No acute intra-abdominal or intrapelvic abnormality. 2. Suspect cirrhosis with splenomegaly, correlate clinically. These findings are stable. 3. Prostatomegaly and distended urinary bladder, nonspecific, may be physiologic cannot rule out urinary retention or bladder outlet obstruction. 4. Mild left lower lobe infiltrate and small nodule, nonspecific. Electronically signed by: Ashlee De La Rosa M.D. 06/09/24 20:[address] 06/09/24 18:12 Exam(s): CT L SPINE EXAM: CT Lumbar Spine Without Intravenous Contrast CLINICAL HISTORY: Reason for exam: lower back pain and r flank pain. TECHNIQUE: Axial computed tomography images of the lumbar spine without intravenous contrast. CTDI is 27.74 mGy and DLP is 1450.45 mGy-cm. Automated exposure control was utilized for the study. A dose lowering technique was utilized adhering to the principles of ALARA. COMPARISON: None. FINDINGS: Vertebrae: Osteoporosis and degenerative change. No acute fracture. Discs/spinal canal/neural foramina: Severe degenerative change diffusely. Soft tissues: CT a/p also done, dictated separately. IMPRESSION: 1. No fracture or acute bony abnormality. Electronically signed by: Ashlee De La Rosa M.D. 06/09/24 20:44 PM Diagnostic Findings EKG as per my interpretation : Rate 110, atrial flutter, normal axis, no ischemia
[2024-06-09] MEDS: METOPROLOL TARTRATE 1 MG/ML VIAL IV STA (23:01)
[2024-06-09] MEDS: LIDOCAINE 5% 1 PATCH TD STA (23:01)
[2024-06-09 23:39] LABS: Thyroid Stimulating Hormone 2.448 uIu/ml (0.300-4.500)
[2024-06-10] MEDS ORDERED: DEXTROSE 50% 50 ML SYRINGE IV PRN (00:36)
[2024-06-10] MEDS ORDERED: GLUCAGON FOR INJ 1 MG VIAL SQ PRN (00:36)
[2024-06-10] MEDS ORDERED: GLUCOSE 10 TAB/TUBE PO PRN (00:36)
[2024-06-10] MEDS ORDERED: GLUCOSE 40% GEL 15 GM TUBE PO PRN (00:36)
[2024-06-10] MEDS ORDERED: CARBOHYDRATES FOR HYPOGLYCEMIA PO PRN (00:36)
[2024-06-10] MEDS: APIXABAN 5 MG TABLET PO SCH (01:42)
[2024-06-10] MEDS: ASPIRIN 81 MG ECTAB PO SCH (01:42)
[2024-06-10] MEDS: CETIRIZINE HCL 10 MG TABLET PO SCH (01:42)
[2024-06-10] MEDS: INSULIN ASPART PER UNIT CHARGE SC SCH (01:43)
[2024-06-10 06:48] LABS: Basophils # (auto) 0.03 K/uL (0.00-0.20); Basophils % (auto) 0.5 %; Hemoglobin 15.7 g/dl (14.0-18.0); Immature Granulocytes # (auto) 0.05 K/uL (0.01-0.20); Immature Granulocytes % (auto) 0.8 %; Lymphocytes # (auto) 0.97 K/uL (1.20-3.40); Lymphocytes % (auto) 15.2 %; Mean Corpuscular Hemoglobin 31.7 pg (25.0-34.0); Mean Corpuscular Hgb Conc 34.9 g/dL (32.0-36.0); Mean Corpuscular Volume 90.9 fL (80.0-100.0); Mean Platelet Volume 11.8 fL (9.4-12.4); Monocytes % (auto) 1.6 %; Neutrophils # (auto) 5.22 K/uL (1.40-6.50); Neutrophils % (auto) 81.9 %; Platelet Count 123 K/uL (130-400); RDW Coefficient of Variation 13.3 % (11.5-14.5); Red Blood Count 4.95 M/uL (4.70-6.10); White Blood Count 6.37 K/ul (4.8-10.8)
[2024-06-10 07:00] LABS: BUN Creatinine Ratio 26.2 (10-20); Calcium 9.6 mg/dl (8.6-10.3); Creatinine Clr Calc Pharmacy 100.8 ml/min; Est GFR (African American) 101.4 ml/min; Est GFR (Non-African American) 87.5 ml/min; Potassium 4.3 mmol/L (3.5-5.1)
--- NOTE | 2024-06-10 07:19 | XRay Report ---
XR chest 1V portable HISTORY: Cough. ?PNA COMPARISON: Chest 08/19/2023. FINDINGS: No pneumothorax. The heart remains enlarged. No evidence for pulmonary edema. No acute frac tures. Small patchy density at the left lung base. No evidence for pulmonary edema. IMPRESSION: 1. Small patchy density at the left lung base. This may represent atelectasis or a developing pneumon ia. 2. Stable cardiomegaly. ACT 112: Negative or not required by law. Electronically signed by: John Castanon M.D. 06/10/2024 7:18 AM
[2024-06-10] MEDS: DOCUSATE SODIUM 100 MG CAP PO SCH (08:08)
[2024-06-10] MEDS: LANTUS PER UNIT CHARGE SC SCH (08:08)
[2024-06-10] MEDS: FLUTICASONE PROPIONATE NA SPR 16 GM BTL SCH (08:08)
[2024-06-10] MEDS: CYANOCOBALAMIN (B-12) 500 MCG TABLET PO SCH (08:08)
[2024-06-10] MEDS: METOPROLOL SUCC 25MG EXT REL TAB PO SCH (08:09)
[2024-06-10] MEDS: PANTOprazole 40 MG TAB PO SCH (08:09)
--- NOTE | 2024-06-10 09:14 | Hospitalist Progress Note ---
Date of Service June 10, 2024 Assessment & Plan (1) Atrial flutter: Plan Pt is a 73yoM with PMHx significant for CAD status post stent, history atrial flutter status post ablation on Eliquis, hypertension, hyperlipidemia, COPD, IFRAH on BiPAP, GERD, DM 2 insulin requiring, chronic back pain, RLS, past tobacco abuse presenting with intractable lower back pain. Lumbar radiculopathy Pt presenting with severe back pain, unable to get out of the car CT lumbar spine noting severe degenerative changes but no acute fracture MRI lumbar spine noting DDD Pain control PT/OT [facility] consulted based on MRI results, appreciate recs Rapid atrial flutter Noted in the ER likely secondary to lumbar radiculopathy History ablation on Eliquis EKG noting atrial flutter Trop x1 wnl Echo pending s/p IV Lopressor 1 dose Continue home Toprol XL 25mg BID Continue home eliquis Cardiology consulted, appreciate recs Possible Pneumonia, left lung base Pulmonary nodule Pt currently without symptoms possible pneumonia with left lower lobe infiltrate noted on chest xray and abd pelvis CT Procal normal Chest CT ordered for further evaluation -no pneumonia PCP f/u for pulmonary nodule moderate to severe coronary calcifications noted on CT chest Cardiology recs appreciated Cirrhosis Incidental finding of cirrhosis on imaging Outpatient GI consult for cirrhosis workup Prostatomegaly Distended urinary bladder Noted on imaging Per Nursing pt has been voiding without issues, and a post void bladder scan was 0. No mustafa placement at this time Consider Urology followup hx CAD status post stent hypertension stable hyperlipidemia on statin Rx COPD IFRAH on BiPAP patient without pulmonary complaints DM 2 insulin requiring well-controlled as of recent hemoglobin A1c of 5.5% Basal bolus insulin, ISS BG goal 1 10-1 40, carb count coverage Diet: HH/DMII DVT prophylaxis. Eliquis Full code Dispo: PT/OT ordered for further recs Admission and Anticipated Discharge Date Admission Date: June 09, 2024 Subjective pt was seen in 203. Sitting on bed eating. States he felt some fluttering in his chest last night but none currently. States back pain currently improved to 4/10 Review of Systems Review of Systems: All systems reviewed & are unremarkable except as noted in Subjective Physical Exam Physical Exam: General: Alert, oriented. No acute distress Skin: No noted rashes or bruises Psych: Appropriate mood and affect Neuro:difficulty with movements in the bed HEENT: NC/AT CV: RRR Resp: Breath sounds clear bilaterally, no increased effort of breathing. No crackles/rhonchi/rales. Abdomen: BS+. Soft, nontender, nondistended. No guarding. No organomegaly appreciated. Extremities: No edema in lower extremities bilaterally. Results & Data Results & Data Vital Signs (Past 12 Hours) Vital Signs Temp Pulse Pulse Pulse Resp BP BP 06/10/24 07:56 84 06/10/24 07:04 36.6 C 92 H 16 06/10/24 02:38 36.4 C L 80 18 108/74 06/10/24 02:15 36.9 C 78 20 06/10/24 01:00 75 06/10/24 00:36 36.9 C 73 20 06/10/24 00:36 06/10/24 00:00 06/09/24 23:25 73 115/73 06/09/24 23:03 95 H 24 115/93 06/09/24 23:01 88 115/93 06/09/24 22:00 110 H 15 122/97 BP Pulse Ox Pulse Ox O2 Del Method O2 Del Method 06/10/24 07:56 06/10/24 07:04 117/77 96 Room Air 06/10/24 02:38 94 Room Air 06/10/24 02:15 128/91 97 Room Air 06/10/24 01:00 06/10/24 00:36 128/91 97 Room Air 06/10/24 00:36 97 Room Air 06/10/24 00:00 Room Air 06/09/24 23:25 06/09/24 23:03 94 06/09/24 23:01 06/09/24 22:00 94 Diagnostic Findings Abdomen/Pelvis CT 06/09/24 18:12 Exam(s): CT ABDOMEN + PELVIS Without Contrast EXAM: CT Abdomen and Pelvis Without Intravenous Contrast CLINICAL HISTORY: Reason for exam: r flank pain. TECHNIQUE: Axial computed tomography images of the abdomen and pelvis without intravenous contrast. CTDI is 27.74 mGy and DLP is 1450.45 mGy-cm. Automated exposure control was utilized for the study. A dose lowering technique was utilized adhering to the principles of ALARA. COMPARISON: CT abdomen pelvis 08/14/22. FINDINGS: Lung bases: Moderate cardiomegaly, mild vascular prominence and mild dependent infiltrate left lower lobe, with small, 6 mm pulmonary nodule. Liver: Somewhat small and lobular, possible cirrhosis. Gallbladder and bile ducts: Cholecystectomy. No ductal dilation. Pancreas: No ductal dilation. Spleen: Mildly enlarged, stable. Adrenals: Unremarkable. Kidneys and ureters: No renal stone or hydronephrosis. Stomach and bowel: Diverticulosis and moderate fecal loading of the colon, without acute diverticulitis. No obstruction. Appendix: Not seen. No acute appendicitis. Intraperitoneal space: No free air or fluid. Bones/joints: No acute fracture. Soft tissues: Unremarkable. Vasculature: No aortic aneurysm. Lymph nodes: No enlarged lymph nodes. Bladder: Moderately distended, nonspecific, may be physiologic cannot rule out urinary retention or bladder outlet obstruction. No stones. Reproductive: Mild, nonspecific prostatomegaly. IMPRESSION: 1. No acute intra-abdominal or intrapelvic abnormality. 2. Suspect cirrhosis with splenomegaly, correlate clinically. These findings are stable. 3. Prostatomegaly and distended urinary bladder, nonspecific, may be physiologic cannot rule out urinary retention or bladder outlet obstruction. 4. Mild left lower lobe infiltrate and small nodule, nonspecific. Electronically signed by: Ashlee De La Rosa M.D. 06/09/24 20:[address] 06/09/24 18:12 Exam(s): CT L SPINE EXAM: CT Lumbar Spine Without Intravenous Contrast CLINICAL HISTORY: Reason for exam: lower back pain and r flank pain. TECHNIQUE: Axial computed tomography images of the lumbar spine without intravenous contrast. CTDI is 27.74 mGy and DLP is 1450.45 mGy-cm. Automated exposure control was utilized for the study. A dose lowering technique was utilized adhering to the principles of ALARA. COMPARISON: None. FINDINGS: Vertebrae: Osteoporosis and degenerative change. No acute fracture. Discs/spinal canal/neural foramina: Severe degenerative change diffusely. Soft tissues: CT a/p also done, dictated separately. IMPRESSION: 1. No fracture or acute bony abnormality. Electronically signed by: Ashlee De La Rosa M.D. 06/09/24 20:44 PM Chest X-Ray 06/09/24 20:49 XR chest 1V portable HISTORY: Cough. ?PNA COMPARISON: Chest 08/19/2023. FINDINGS: No pneumothorax. The heart remains enlarged. No evidence for pulmonary edema. No acute fractures. Small patchy density at the left lung base. No evidence for pulmonary edema. IMPRESSION: 1. Small patchy density at the left lung base. This may represent atelectasis or a developing pneumonia. 2. Stable cardiomegaly. ACT 112: Negative or not required by law. Electronically signed by: John Castanon M.D. 06/10/2024 7:[address] 06/10/24 09:17 CT chest diagnostic wo con CT DOSE: 791.84 mGy.cm HISTORY: f/u possible pneumonia on imaging TECHNIQUE: Multiaxial CT images of the chest were performed without contrast. A dose lowering technique was utilized adhering to the principles of ALARA. COMPARISON: Abdomen and pelvis CT 06/09/2024. FINDINGS: No pneumothorax. No pleural effusions. The central airways are patent. There is a 6 mm nodule within the left lower lobe on image 199. There are few punctate calcified granulomas within the left lower lobe. No focal lung consolidations to suggest a pneumonia. No evidence for pulmonary edema. There are few small blebs seen within the lungs. There is a 3 mm nodule within the right middle lobe on image 164. There is a 3 mm nodule within the right upper lobe on image 69. No acute fractures within the chest. Limited views of the u pper abdomen demonstrate a cirrhotic liver and a normal spleen. The adrenal glands unremarkable. Prior cholecystectomy. Normal esophagus. The heart is mildly enlarged. No pericardial effusion. Normal caliber thoracic aorta. Moderate to severe coronary artery calcifications are noted. No mediastinal or hilar lymphadenopathy. IMPRESSION: 1. No focal lung consolidations to suggest a pneumonia. 2. A 6 mm indeterminate pulmonary nodule within the left lower lobe. Please refer to the chart below for recommended follow-up. 3. Mild cardiomegaly. 4. Moderate to severe coronary artery calcifications. 5. Cirrhotic liver. Please refer to below summary of Fleischner criteria recommendations for follow- up of incidental CT nodules (Renetta Tran, Guidelines for management of small pulmonary nodules detected on CT scans: A statement from the Fleischner Society, Radiology 237: [id number].) SOLID NODULES Solitary nodule size: <6 mm * Low risk patients: no follow-up needed * high risk patients: optional CT at 12 months Solitary nodule size: 6-8 mm * Low risk patients: follow-up at 6-12 months, then consider further follow-up at 18-24 months * high risk patients: initial follow-up CT at 6-12 months and then at 18-24 months if no change Solitary nodule size: >8 mm * either low or high risk patients - consider follow-up CT at 3 months, and/or CT-PET, and/or biopsy Multiple nodules size: <6 mm * Low risk patients: no routine follow-up * high risk patients: optional CT at 12 months Multiple nodules size: 6-8 mm * Low risk patients: follow-up at 3-6 months, then consider further follow-up at 18-24 months * high risk patients: follow-up at 3-6 months, then at 18-24 months if no change Multiple nodules size: >8 mm * Low risk patients: follow-up at 3-6 months, then consider further follow-up at 18-24 months * high risk patients: follow-up at 3-6 months, then at 18-24 months if no change Note: newly detected indeterminate nodule in persons 35 years of age or older. * Low risk patients: minimal or absent history of smoking and/or other known risk factors * high risk patients: history of smoking or of other known risk factors (e.g. first degree relative with lung cancer, or exposure to asbestos, radon, uranium) * if a nodule up to 8 mm is partly solid or is ground glass further follow-up is required after 24 months to exclude possible slow growing adenocarcinoma (DEANA) SUBSOLID NODULES Solitary pure ground-glass nodule * nodule size <6 mm - no CT follow-up required * nodule size >=6 mm - follow-up CT at 6-12 months, then every 2 years until 5 years Solitary part-solid nodule * nodule size <6 mm - no CT follow-up required * nodule size >=6 mm - follow-up CT at 3-6 months. If unchanged, and solid component remains <6 mm, then annual follow-up for 5 years Multiple subsolid nodules * nodule size <6 mm - follow-up CT at 3-6 months, consider further follow-up at 2 and 4 years if stable * nodule size >=6 mm - follow-up CT at 3-6 months, subsequent management based on the most suspicious nodule(s) ACT 112: Negative or not required by law. Electronically signed by: John Castanon M.D. 06/10/2024 11:27 AM Lumbar Spine MRI 06/10/24 09:25 LUMBAR SPINE MRI HISTORY: Intractable lower back pain TECHNIQUE: Multiplanar multisequence MRI of the lumbar spine was performed without the use of contrast. COMPARISON: Lumbar spine CT 06/09/2024. Lumbar spine MRI 06/10/2007. FINDINGS: For the purpose of the report the L5-S1 disc space will be located on axial image 27 of 30. No fracture or subluxation within the lumbar spine. The L3-S1 vertebral bodies are partially fused which accounts for the disc space narrowing. The L1-L2 and L2-L3 disc spaces are preserved. Moderate to severe facet degenerative changes most pronounced at the L4-5 level. The visualized sacrum is intact. Paravertebral soft tissues are unremarkable. Broad-based posterior disc bulge T12-L1 resulting in mild central canal narrowing. No significant neural foraminal narrowing. L1-L2: Broad-based posterior disc bulge with a focal central annular tear. In conjunction with the ligamentum and facet hypertrophy this results in mild central canal and mild bilateral neural foraminal narrowing. L2-L3: Broad-based posterior disc bulge with significant ligamentum flavum and facet hypertrophy resulting in [id number] central canal and mild to moderate bilateral neural foraminal narrowing. L3-L4: No significant central canal narrowing. There is mild bilateral neural foraminal narrowing due to the endplate osteophytes and facet hypertrophy. L4-L5: No significant central canal narrowing. There is mild to moderate right and mild left neural foraminal narrowing due to the endplate osteophytes and facet hypertrophy. L5-S1: No significant central canal or neural foraminal narrowing. IMPRESSION: 1. No fracture or subluxation of the lumbar spine. 2. Degenerative changes as described above most pronounced at the L2-L3 level. ACT 112: Negative or not required by law. Electronically signed by: John Castanon M.D. 06/10/2024 12:59 PM
--- NOTE | 2024-06-10 11:29 | CT Scan Report ---
CT chest diagnostic wo con CT DOSE: 791.84 mGy.cm HISTORY: f/u possible pneumonia on imaging TECHNIQUE: Multiaxial CT images of the chest were performed without contrast. A dose lowering techni que was utilized adhering to the principles of ALARA. COMPARISON: Abdomen and pelvis CT 06/09/2024. FINDINGS: No pneumothorax. No pleural effusions. The central airways are patent. There is a 6 mm nodu le within the left lower lobe on image 199. There are few punctate calcified granulomas within the le ft lower lobe. No focal lung consolidations to suggest a pneumonia. No evidence for pulmonary edema. There are few small blebs seen within the lungs. There is a 3 mm nodule within the right middle lobe on image 164. There is a 3 mm nodule within the right upper lobe on image 69. No acute fractures with in the chest. Limited views of the upper abdomen demonstrate a cirrhotic liver and a normal spleen. T he adrenal glands unremarkable. Prior cholecystectomy. Normal esophagus. The heart is mildly enlarged . No pericardial effusion. Normal caliber thoracic aorta. Moderate to severe coronary artery calcific ations are noted. No mediastinal or hilar lymphadenopathy. IMPRESSION: 1. No focal lung consolidations to suggest a pneumonia. 2. A 6 mm indeterminate pulmonary nodule within the left lower lobe. Please refer to the chart below for recommended follow-up. 3. Mild cardiomegaly. 4. Moderate to severe coronary artery calcifications. 5. Cirrhotic liver. Please refer to below summary of Fleischner criteria recommendations for follow-up of incidental CT n odules (Renetta Tran, Guidelines for management of small pulmonary nodules detected on CT scans: A sta tement from the Fleischner Society, Radiology 237: [phone].) SOLID NODULES Solitary nodule size: <6 mm * Low risk patients: no follow-up needed * high risk patients: optional CT at 12 months Solitary nodule size: 6-8 mm * Low risk patients: follow-up at 6-12 months, then consider further follow-up at 18-24 months * high risk patients: initial follow-up CT at 6-12 months and then at 18-24 months if no change Solitary nodule size: >8 mm * either low or high risk patients - consider follow-up CT at 3 months, and/or CT-PET, and/or biopsy Multiple nodules size: <6 mm * Low risk patients: no routine follow-up * high risk patients: optional CT at 12 months Multiple nodules size: 6-8 mm * Low risk patients: follow-up at 3-6 months, then consider further follow-up at 18-24 months * high risk patients: follow-up at 3-6 months, then at 18-24 months if no change Multiple nodules size: >8 mm * Low risk patients: follow-up at 3-6 months, then consider further follow-up at 18-24 months * high risk patients: follow-up at 3-6 months, then at 18-24 months if no change Note: newly detected indeterminate nodule in persons 35 years of age or older. * Low risk patients: minimal or absent history of smoking and/or other known risk factors * high risk patients: history of smoking or of other known risk factors (e.g. first degree relative with lung cancer, or exposure to asbestos, radon, uranium) * if a nodule up to 8 mm is partly solid or is ground glass further follow-up is required after 24 m onths to exclude possible slow growing adenocarcinoma (DEANA) SUBSOLID NODULES Solitary pure ground-glass nodule * nodule size <6 mm - no CT follow-up required * nodule size >=6 mm - follow-up CT at 6-12 months, then every 2 years until 5 years Solitary part-solid nodule * nodule size <6 mm - no CT follow-up required * nodule size >=6 mm - follow-up CT at 3-6 months. If unchanged, and solid component remains <6 mm, then annual follow-up for 5 years Multiple subsolid nodules * nodule size <6 mm - follow-up CT at 3-6 months, consider further follow-up at 2 and 4 years if sta ble * nodule size >=6 mm - follow-up CT at 3-6 months, subsequent management based on the most suspiciou s nodule(s) ACT 112: Negative or not required by law. Electronically signed by: John Castanon M.D. 06/10/2024 11:27 AM
[2024-06-10 12:25] LABS: Adenovirus PCR Not Detected (NotDetected); Bordetella parapertussis PCR Not Detected (NotDetected); Bordetella pertussis PCR Not Detected (NotDetected); Chlamydia pneumoniae PCR Not Detected (NotDetected); Coronavirus 229E PCR Not Detected (NotDetected); Coronavirus CoV-2 (COVID19)PCR Not Detected (NotDetected); Coronavirus HKU1 PCR Not Detected (NotDetected); Coronavirus NL63 PCR Not Detected (NotDetected); Coronavirus OC43PCR Not Detected (NotDetected); Human Metapneumovirus PCR Not Detected (NotDetected); Influenza A PCR Not Detected (NotDetected); Influenza B PCR Not Detected (NotDetected); Mycoplasma pneumoniae PCR Not Detected (NotDetected); Parainfluenza Virus 1 PCR Not Detected (NotDetected); Parainfluenza Virus 2 PCR Not Detected (NotDetected); Parainfluenza Virus 3 PCR Not Detected (NotDetected); Parainfluenza Virus 4 PCR Not Detected (NotDetected); Respiratory Syncytial VirusPCR Not Detected (NotDetected); Rhinovirus/Enterovirus PCR Not Detected (NotDetected)
--- NOTE | 2024-06-10 13:00 | Magnetic Resonance Report ---
LUMBAR SPINE MRI HISTORY: Intractable lower back pain TECHNIQUE: Multiplanar multisequence MRI of the lumbar spine was performed without the use of contras t. COMPARISON: Lumbar spine CT 06/09/2024. Lumbar spine MRI 06/10/2007. FINDINGS: For the purpose of the report the L5-S1 disc space will be located on axial image 27 of 30. No fracture or subluxation within the lumbar spine. The L3-S1 vertebral bodies are partially fused wh ich accounts for the disc space narrowing. The L1-L2 and L2-L3 disc spaces are preserved. Moderate to severe facet degenerative changes most pronounced at the L4-5 level. The visualized sacrum is intact . Paravertebral soft tissues are unremarkable. Broad-based posterior disc bulge T12-L1 resulting in m ild central canal narrowing. No significant neural foraminal narrowing. L1-L2: Broad-based posterior disc bulge with a focal central annular tear. In conjunction with the li gamentum and facet hypertrophy this results in mild central canal and mild bilateral neural foraminal narrowing. L2-L3: Broad-based posterior disc bulge with significant ligamentum flavum and facet hypertrophy resu lting in [id number] central canal and mild to moderate bilateral neural foraminal narrowing. L3-L4: No significant central canal narrowing. There is mild bilateral neural foraminal narrowing due to the endplate osteophytes and facet hypertrophy. L4-L5: No significant central canal narrowing. There is mild to moderate right and mild left neural f oraminal narrowing due to the endplate osteophytes and facet hypertrophy. L5-S1: No significant central canal or neural foraminal narrowing. IMPRESSION: 1. No fracture or subluxation of the lumbar spine. 2. Degenerative changes as described above most pronounced at the L2-L3 level. ACT 112: Negative or not required by law. Electronically signed by: John Castanon M.D. 06/10/2024 12:59 PM
--- NOTE | 2024-06-10 14:31 | Cardiology Consultation ---
Date of Consultation June 10, 2024 Assessment & Plan (1) Back pain: (2) Atrial flutter: Plan Patient admitted for severe low back radiating to right flank/right hip pain. No acute trauma reported by patient Pain management per hospitalist. Consider ortho/spine evaluation vs pain management. Incidentally found to have recurrent atrial flutter RVR on admission. He has a long history of atrial arrhythmias s/p multiple ablations. Follows with Dr. Gamino, EP as outpatient. Last clinic visit in 10/2023 patient was in NSR. Further discussed if he had recurrent atrial fib/flutter, that repeat attempted ablation could be considered with new technoclogy vs ongoing rate control stratgey would be acceptable. At this time, patient has no significant symptoms. His HR was initially elevated likely due to severe pain. Currently his HR is well controlled at rest in the 70's. Continue home metoprolol 25 mg BID. Continue Eliquis for anticoagulation therapy. Should pain intervention be needed, would be acceptable to hold eliquis if needed. Patient has f/u with Cardiology in a few weeks. Can reassess rate/rhythm and symptoms at that time. Future considerations for ongoing rate control vs return visit with EP to consider another ablation attempt. No additional cardiac testing required or recommended at this time. Case discussed with Dr. Victoria I spent a total of 45 minutes on the date of service in preparation, delivery, and documentation of the care provided to this patient, excluding any time spent in the performance of separately billed services. Rosa Mcgrath PA-C Department of Cardiology, [facility] This chart was completed in part utilizing Speech Voice Recognition Software. Grammatical errors, random word insertions, pronoun errors, and incomplete sentences are an occasional consequence of this system due to software limitations, ambient noise, and hardware issues. Any formal questions or concerns about the content, text, or information contained within the body of this dictation should be directly addressed to the provider for clarification. Supervising Physician Co-Signing Physician Notes Attending physician attestation. I have personally performed a history and physical examination on the patient.I have reviewed the advance practitioner's documentation, and I agree with, and take responsibility for the plan of care. 73-year-old male admitted with back and hip discomfort. Incidentally noted recurrent atrial flutter. Heart rates elevated however improved currently. Denies palpitations, lightheadedness, or dizziness. Repeat echocardiogram stable. Recommend continuing current medications including metoprolol and Eliquis. Outpatient follow-up scheduled with electrophysiology. No further inpatient cardiac testing or intervention recommended at this time. Cardiology will sign off. Please call with additional concerns/questions. I spent a total of 20 minutes on the date of service in preparation, delivery, and documentation of the care provided to this patient, excluding any time spent in the performance of separately billed services. Allan Victoria DO, [facility] History of Present Illness Reason for Consultation: Atrial flutter Requesting Physician: Dr. Vidales Attending Physician: Dr. Victoria History of Present Illness Patient is a 73 year old male known to [facility] cardiology - Mehnaz Diaz and Darrin Gamino history includes: 1. Complex atrial arrhythmias - Paroxysmal atrial flutter - Paroxysmal and persistent atrial fibrillation status post PVI x 3 (August 2009, January 2011, and January 2012). -Previously treated with dofetilide and most recently sotalol which was discontinued in June 2020 when patient was observed to have persistent atrial fibrillation/flutter, adopting a rate control strategy thereafter. -Most recent EP evaluation in Oct 2023, patient was in NSR, but admitted to episodes of PAF. Feels "tired" during these episodes but rates are controlled. 2. Chronic anticoagulation 3. CAD s/p catheterization on 07/04/2008 revealed ASCVD with a 90% mid LAD stenosis s/p PTCA and stenting of the mid LAD with a bare metal stent for single vessel disease 4 Hypertension 4. Dyslipidemia 5. Obstructive sleep apnea treated with BiPAP 6. COPD Patient presented to [facility] with severe back pain/hip pain. He has been having worsening pain x1 week. No apparent falls/trauma. He was having difficulty ambulating. He went to run an errand with his and when he tried to get out of the car, he was unable to move his leg due to severe pain. EMS was summoned and brought to ER for evaluation. Incidentally found to have recurrent atrial flutter with RVR upon admission. long known history of PAF and atrial flutter. Rates were elevated, likely due to severe pain. Treated with IV Lopressor. HS troponin unremarkable. Home dose Eliquis 5 mg BID and metoprolol succinate 25 mg BID continued At time of consult, patient resting comfortably. pain controlled at rest, but worse with ambulation. No acute process on MRI, although DDD noted. No ortho or pain management consult ordered. He denies acute cardiac symptoms. He thought he may have had atrial fib/flutter several weeks ago. He also ntoes more fatigue at times, which is his typical symptoms. Rates currently controlled in the 's Last visit with Dr. Gamino in Oct 2023, he was in NSR, but they discussed if he had recurrent afib/flutter and rates were controlled, likely ongoing rate control stratgey would be recommended. If he had severe symptoms, repeat ablation to be considered. Allergies Allergy/AdvReac Type Severity Reaction Status Date / Time doxycycline Allergy Intermediate Rash Verified 06/09/24 18:44 Iodinated Contrast Media Allergy Intermediate RASH Verified 06/09/24 18:44 latex Allergy Intermediate RASH Verified 06/09/24 18:44 morphine Allergy Intermediate RASH AND Verified 06/09/24 18:44 SWELLING atorvastatin AdvReac Intermediate Muscle Pain Verified 06/09/24 18:44 Influenza Virus Vaccines AdvReac Intermediate SICK FOR 2 Verified 06/09/24 18:44 WEEKS AFTERWARD metformin AdvReac Intermediate Diarrhea, Verified 06/09/24 18:44 ABDOMINAL PAIN oxycodone AdvReac Intermediate GI UPSET Verified 06/09/24 18:44 simvastatin AdvReac Intermediate Muscle Pain Verified 06/09/24 18:44 Home Medications Medication Instructions Recorded Confirmed Type apixaban 5 mg tablet 5 mg PO BID 10/26/18 06/09/24 History aspirin 81 mg tablet,delayed 81 mg PO HS 10/26/18 06/09/24 History release (Ecotrin Low Strength) cetirizine 10 mg tablet (Zyrtec) 10 mg PO HS 10/26/18 06/09/24 History fluticasone propionate 50 2 spray intranasal DAILY 10/26/18 06/09/24 History mcg/actuation nasal spray,suspension (Flonase Allergy Relief) magnesium oxide 400 mg PO QAM 10/26/18 06/09/24 History rosuvastatin 40 mg tablet 40 mg PO HS 10/26/18 06/09/24 History omeprazole 20 mg tablet,delayed 40 mg PO QAM 05/15/20 06/09/24 History release ascorbic acid (vitamin C) 500 mg 500 mg PO QAM 02/18/21 06/09/24 History capsule cyanocobalamin (vitamin B-12) 1,000 mcg sublingual QAM 02/18/21 06/09/24 History 1,000 mcg sublingual tablet hydrocortisone 2.5 % topical cream 1 applic MT UD PRN Hemorrhoids 11/01/21 06/09/24 History with perineal applicator (Procto-Med HC) metoprolol succinate 50 mg 25 mg PO BID 02/18/22 06/09/24 History tablet,extended release 24 hr OneTouch Verio test strips (blood #400 ea 06/03/22 05/24/24 Rx sugar diagnostic) Dexcom G7 Sensor (blood-glucose #9 ea 05/24/24 05/24/24 Rx sensor) docusate sodium 100 mg capsule 100 mg PO DAILY 05/24/24 06/09/24 History pen needle, diabetic 32 gauge x #500 ea 05/24/24 05/24/24 Rx 5/32" (BD Aisha 2nd Gen Pen Needle) acetaminophen 325 mg tablet 650 mg PO BID PRN Pain 06/09/24 06/09/24 History (Tylenol) clobetasol 0.05 % scalp solution 1 applic topical BID PRN SKIN 06/09/24 06/09/24 History IRRITATIONS empagliflozin 25 mg tablet 25 mg PO DAILY 06/09/24 06/09/24 History (Jardiance) insulin aspart U-100 100 unit/mL 25 unit subcut TID 06/09/24 06/09/24 History (3 mL) subcutaneous pen (Novolog FlexPen U-100 Insulin aspart) insulin glargine U-300 conc 300 72 unit subcut DAILY 06/09/24 06/09/24 History unit/mL (1.5 mL) subcutaneous pen (Toujeo SoloStar U-300 Insulin) mineral oil (Mineral Oil Heavy 15 ml PO DAILY PRN Constipation 06/09/24 06/09/24 History oral) potassium chloride 20 mEq 10 meq PO [id number] 06/09/24 06/09/24 History tablet,extended release triamcinolone acetonide 0.1 % 1 applic topical BID PRN SKIN 06/09/24 06/09/24 History topical cream IRRITATIONS Patient History Medical History Atrial fibrillation DX 2005 ? , follows with Dr. Diaz, HX 2 CARDIOVERSIONS CAD (coronary artery disease) (09/26/14) Chronic constipation Degenerative disc disease Depression no meds Diabetes mellitus, type 2 Diarrhea "comes and goes" Diverticular disease Elevated liver enzymes Excessive thirst ONGOING "IT'S BEEN FOREVER" NOTICE IT FIRST THING IN THE MORNING GERD (gastroesophageal reflux disease) Hiatal hernia History of anesthesia reaction PER PT WITH HEAVY ANESTHESIA GI MOTILITY SLOWS DOWN History of atrial flutter History of cardioversion x2--last one 09/26/2013 History of COVID-19 07/2022, home test and pcr test [facility]-admitted for 2 days; intestinal symptoms- given antiviral>resolved. History of dizziness RESOLVED History of ileus HTN (hypertension) (09/26/14) Hx of hemorrhoids "currently having a lot of bleeding from his hemorrhoids" Hyperlipidemia (09/26/14) Nausea and vomiting after administration of anesthetic agent On anticoagulant therapy on eliquis Osteoarthritis Partial small bowel obstruction (11/28/13) hx Sciatic nerve pain Sleep apnea BIPAP Tortuous colon BORN WITH Surgical History History of appendectomy History of cardiac cath 2008, [facility], x1 stentl; f/u dr diaz, s History of cardiac radiofrequency ablation x3-- [place] [facility] [place] History of cataract surgery bilat. History of cholecystectomy History of colonoscopy pt stated that he needs the "pediatric scope" History of esophagogastroduodenoscopy (EGD) History of eye surgery x2--bug removal and piece of tree History of heart artery stent 2007--[facility] History of liver biopsy d/t elevated liver functions--"was ok" History of tonsillectomy and adenoidectomy History of wisdom tooth extraction Hx of right inguinal hernia repair Family History Sister Breast cancer Colonic polyp Mother CHF (congestive heart failure) Father CHF (congestive heart failure) Aneurysm Other No family history of adverse response to anesthesia Past medical history not known due to adoption Social History Smoking Status: Never smoker 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); Do You Dip or Chew Tobacco: No; Hx Alcohol Use: Yes Alcohol type: beer Hx Substance Use: No Preferred Language: [place] Citizen Communication Ability: Effective Senior Financial Required: No Beliefs That Will Affect Care: None marital status: Current Living Situation: Spouse Current Living Situation Comment: with , multiple story house Other Information That Helps Us Care for You: No Feels Safe at Home: Yes Safety Concerns: Feels Safe At This Time Assistive Devices: Cane and Walker Review of Systems Review of Systems: All systems reviewed & are unremarkable except as noted in HPI & below Physical Exam Constitutional: WD/WN, vitals as above + obese; no acute distress Neck: normal visual inspection Respiratory: normal respiratory effort; no labored breathing Cardiovascular: Rate/Rhythm: + irregularly irregular Heart Sounds: no murmur Vessels: no JVD Extremities: no edema Gastrointestinal (Abdomen): normal bowel sounds, soft, nontender, no hepatosplenomegaly Musculoskeletal: no cyanosis or clubbing, extremities motor strength 5/5 Neurologic: PERRL, EOMI, accommodation nl, no face palsy, no dysarthria Results & Data Vital Signs (Past 12 Hours) Vital Signs Temp Pulse Pulse Resp BP BP Pulse Ox 06/10/24 11:29 36.4 C L 100 H 16 135/89 96 06/10/24 07:56 84 06/10/24 07:04 36.6 C 92 H 16 117/77 96 06/10/24 02:38 36.4 C L 80 18 108/74 94 O2 Del Method 06/10/24 11:29 Room Air 06/10/24 07:56 06/10/24 07:04 Room Air 06/10/24 02:38 Room Air Laboratory Results Cardiac Enzymes 06/09/24 06/10/24 Range/Units 18:10 09:41 AST 34 (13-39) U/L Troponin I High Sens < 2.3 (0-20) pg/ml CBC 06/09/24 06/10/24 Range/Units 18:10 05:42 WBC 8.04 6.37 (4.8-10.8) K/ul RBC 5.51 4.95 (4.70-6.10) M/uL Hgb 17.7 15.7 (14.0-18.0) g/dl Hct 49.8 45.0 (42.0-52.0) % Plt Count 151 123 L (130-400) K/uL Neut # (Auto) 5.44 5.22 (1.40-6.50) K/uL Lymph # (Auto) 1.70 0.97 L (1.20-3.40) K/uL Elk # (Auto) 0.65 H 0.10 L (0.11-0.59) K/uL Eos # (Auto) 0.11 0.00 (0.00-0.50) K/uL Baso # (Auto) 0.07 0.03 (0.00-0.20) K/uL Comprehensive Metabolic Panel 06/09/24 06/10/24 Range/Units 18:10 05:42 Sodium 141 138 (136-145) mmol/L Potassium 4.2 4.3 (3.5-5.1) mmol/L Chloride 108 H 106 (98-107) mmol/L Carbon Dioxide 22 24 (21-32) mmol/L BUN 17 22 (6-23) mg/dl Creatinine 1.11 0.84 (0.6-1.4) mg/dl Glucose 158 H 153 H (70-99(Fasting)) mg/dl Calcium 10.3 9.6 (8.6-10.3) mg/dl AST 34 (13-39) U/L ALT 39 (7-52) U/L Alkaline Phosphatase 94 (34-104) U/L Total Protein 8.0 (6.0-8.3) gm/dl Albumin 4.8 (3.4-5.0) gm/dl Intake and Output 06/09/24 06/10/24 06/10/24 22:59 06:59 14:59 Intake Total 500 / 950 450 / 950 873 / 873 Output Total 300 / 300 Balance 500 / 650 150 / 650 873 / 873 Intake: IV 500 / 500 873 / 873 Lactated Ringer's 1,000 ml @ 60 873 / 873 mls/hr IV .[id number] ONE Rx#: [id number] Sodium Chloride 0.9% 500 ml @ 500 / 500 999 mls/hr IV .Q31M ONE Rx#: [id number] Oral 450 / 450 Output: Urine 300 / 300 Other: Weight 110.5 kg 107.8 kg Weight Measurement Method [facility] Findings Telemetry reviewed: Atrial flutter, controlled rates in the 70's EKG reviewed from 06/09/24: Atrial flutter with variable AV block at [address] wave abnormality Abdomen/Pelvis CT 06/09/24 18:12 IMPRESSION: 1. No acute intra-abdominal or intrapelvic abnormality. 2. Suspect cirrhosis with splenomegaly, correlate clinically. These findings are stable. 3. Prostatomegaly and distended urinary bladder, nonspecific, may be physiologic cannot rule out urinary retention or bladder outlet obstruction. 4. Mild left lower lobe infiltrate and small nodule, nonspecific. Lumbar Spine CT 06/09/24 18:12 IMPRESSION: 1. No fracture or acute bony abnormality. Chest X-Ray 06/09/24 20:49 XR chest 1V portable HISTORY: Cough. ?PNA COMPARISON: Chest 08/19/2023. FINDINGS: No pneumothorax. The heart remains enlarged. No evidence for pulmonary edema. No acute fractures. Small patchy density at the left lung base. No evidence for pulmonary edema. IMPRESSION: 1. Small patchy density at the left lung base. This may represent atelectasis or a developing pneumonia. 2. Stable cardiomegaly. Chest CT 06/10/24 09:17 IMPRESSION: 1. No focal lung consolidations to suggest a pneumonia. 2. A 6 mm indeterminate pulmonary nodule within the left lower lobe. Please refer to the chart below for recommended follow-up. 3. Mild cardiomegaly. 4. Moderate to severe coronary artery calcifications. 5. Cirrhotic liver. Lumbar Spine MRI 06/10/24 09:25 IMPRESSION: 1. No fracture or subluxation of the lumbar spine. 2. Degenerative changes as described above most pronounced at the L2-L3 level. Medications Administered Current Inpatient Medications Acetaminophen (Acetaminophen 500 Mg Tab) 500 mg PO Q6H PRN PRN Reason: fever/pain Stop: 07/09/24 21:28 Apixaban (Apixaban 5 Mg Tablet) 5 mg PO BID CLAUDIO Stop: 07/10/24 00:35 Last Admin: 06/10/24 08:08 Dose: 5 mg Aspirin (Aspirin 81 Mg Ectab) 81 mg PO HS CLAUDIO Stop: 07/10/24 00:35 Last Admin: 06/10/24 01:42 Dose: 81 mg Cetirizine HCl (Cetirizine Hcl 10 Mg Tablet) 10 mg PO HS [facility] Stop: 07/10/24 00:35 Last Admin: 06/10/24 01:42 Dose: 10 mg Cyanocobalamin (Cyanocobalamin (B-12) 500 Mcg Tablet) 1,000 mcg PO QAM [facility] Stop: 07/10/24 08:59 Last Admin: 06/10/24 08:08 Dose: 1,000 mcg Dextrose (Dextrose 50% 50 Ml Syringe) 25 - 50 ml IV UD PRN; Protocol PRN Reason: Hypoglycemia Protocol Stop: 07/10/24 00:35 Docusate Sodium (Docusate Sodium 100 Mg Cap) 100 mg PO DAILY CLAUDIO Stop: 07/10/24 08:59 Last Admin: 06/10/24 08:08 Dose: 100 mg Fluticasone Propionate (Fluticasone Propionate Na Spr 16 Gm Btl) 2 sprays NA DAILY CLAUDIO Stop: 07/10/24 08:59 Last Admin: 06/10/24 08:08 Dose: 2 sprays Glucagon (Glucagon For Inj 1 Mg Vial) 1 mg SQ UD PRN; Protocol PRN Reason: Hypoglycemia Protocol Stop: 07/10/24 00:35 Glucose (Glucose 40% Gel 15 Gm Tube) 15 - 30 gm PO UD PRN; Protocol PRN Reason: Hypoglycemia Protocol Stop: 07/10/24 00:35 Glucose (Glucose 10 Tab/Tube) 4 - 8 tab PO UD PRN; Protocol PRN Reason: Hypoglycemia Treatment Stop: 07/10/24 00:35 Promethazine HCl 12.5 mg/ (Sodium Chloride) 50.5 mls @ 202 mls/hr IV Q6H PRN PRN Reason: Nausea And Vomiting Stop: 07/09/24 21:28 Insulin Aspart (Insulin Aspart Per Unit Charge) 0 units SC ACHS [facility] Stop: 07/10/24 00:35 Last Admin: 06/10/24 12:13 Dose: 2 units Insulin Glargine (Lantus Per Unit Charge) 70 units SC DAILY [facility] Stop: 07/11/24 08:59 Lidocaine (Lidocaine 5% 1 Patch) 1 patch TD HS [facility] Stop: 07/10/24 20:59 Metoprolol Succinate (Metoprolol Succ 25mg Ext Rel Tab) 25 mg PO BID CLAUDIO Stop: 07/10/24 08:59 Last Admin: 06/10/24 08:09 Dose: 25 mg Miscellaneous (Remove Lidoderm Patch) 1 each N/A QAM [facility] Stop: 07/10/24 08:59 Last Admin: 06/10/24 08:09 Dose: 1 each Miscellaneous (Carbohydrates For Hypoglycemia ) 15 - 30 gm PO UD PRN PRN Reason: Hypoglycemia Protocol Stop: 07/10/24 00:35 Oxycodone HCl (Oxycodone Hcl Ir 5 Mg Tab (Immediate Release)) 5 - 10 mg PO QID PRN PRN Reason: Pain Stop: 06/23/24 21:28 Pantoprazole Sodium (Pantoprazole 40 Mg Tab) 40 mg PO QAM [facility] Stop: 07/10/24 08:59 Last Admin: 06/10/24 08:09 Dose: 40 mg Rosuvastatin Calcium (Rosuvastatin Calcium 20 Mg Tab) 40 mg PO [facility] Stop: 07/10/24 20:59 (1) Back pain Back pain laterality: right Back pain location: low back pain Chronicity: acute Sciatica laterality: sciatica of right side Sciatica presence: with sciatica Qualified Code(s): M54.41 - Lumbago with sciatica, right side
--- NOTE | 2024-06-10 20:31 | Electrocardiogram Report ---
Test Reason : Blood Pressure : / mmHG Vent. Rate : 107 BPM Atrial Rate : 300 BPM P-R Int : 000 ms QRS Dur : 082 ms QT Int : 334 ms P-R-T Axes : 000 039 051 degrees QTc Int : 445 ms Atrial flutter with variable A-V block Abnormal ECG When compared with ECG of 19-AUG-2023 08:26, No significant change Confirmed by Diaz Godwin ([id number]) on 06/10/2024 8:31:12 PM Referred By: REFERRED SELF Confirmed By:Diaz Godwin
[2024-06-10] MEDS: ROSUVASTATIN CALCIUM 20 MG TAB PO SCH (20:38)
[2024-06-10] MEDS: LIDOCAINE 5% 1 PATCH TD SCH (20:38)
[2024-06-11] MEDS: ACETAMINOPHEN 500 MG TAB PO PRN (03:17)
[2024-06-11 06:40] LABS: Hematocrit (blood only) 44.1 % (42.0-52.0); Hemoglobin 15.2 g/dl (14.0-18.0); Mean Corpuscular Hemoglobin 31.6 pg (25.0-34.0); Mean Corpuscular Hgb Conc 34.5 g/dL (32.0-36.0); Mean Corpuscular Volume 91.7 fL (80.0-100.0); Mean Platelet Volume 11.4 fL (9.4-12.4); Platelet Count 119 K/uL (130-400); RDW Coefficient of Variation 13.4 % (11.5-14.5); RDW Standard Deviation 45.4 fL (36.4-46.3); Red Blood Count 4.81 M/uL (4.70-6.10); White Blood Count 7.67 K/ul (4.8-10.8)
[2024-06-11 06:45] LABS: BUN Creatinine Ratio 27.5 (10-20); Calcium 9.4 mg/dl (8.6-10.3); Creatinine Clr Calc Pharmacy 106.3 ml/min; Est GFR (African American) 103.4 ml/min; Est GFR (Non-African American) 89.2 ml/min; Magnesium 1.9 mg/dl (1.7-2.4); Phosphorus 3.3 mg/dl (2.5-4.9); Potassium 3.8 mmol/L (3.5-5.1)
--- NOTE | 2024-06-11 08:08 | Orthopedic Consultation ---
Date of Consultation June 11, 2024 Assessment & Plan (1) Back pain: Assessment lumbar sprain strain. Plan at this time in length yesterday with patient reviewing his CAT scan and MRI findings. He does have evidence of multilevel spondylosis but no severe neural compression. I suspect this is a sprain strain only. He should continue with physical therapy and follow-up in the as needed in the future. History of Present Illness Reason for Consultation: Back pain Attending Physician: Khadijah Vidales MD History of Present Illness This is a 73-year-old male who presents to the hospital yesterday with severe back pain. He was helping his sister put down on the floor. He states he stood up from gluing a piece to the floor and had sudden onset of back pain. It radiated to the right groin. He is getting results from Lidoderm patch and medication. He is much improved this morning. Is been up and ambulating. Denies any clear radicular complaints or weakness. He gets occasional tingling into his right great toe. Allergies Allergy/AdvReac Type Severity Reaction Status Date / Time doxycycline Allergy Intermediate Rash Verified 06/09/24 18:44 Iodinated Contrast Media Allergy Intermediate RASH Verified 06/09/24 18:44 latex Allergy Intermediate RASH Verified 06/09/24 18:44 morphine Allergy Intermediate RASH AND Verified 06/09/24 18:44 SWELLING atorvastatin AdvReac Intermediate Muscle Pain Verified 06/09/24 18:44 Influenza Virus Vaccines AdvReac Intermediate SICK FOR 2 Verified 06/09/24 18:44 WEEKS AFTERWARD metformin AdvReac Intermediate Diarrhea, Verified 06/09/24 18:44 ABDOMINAL PAIN oxycodone AdvReac Intermediate GI UPSET Verified 06/09/24 18:44 simvastatin AdvReac Intermediate Muscle Pain Verified 06/09/24 18:44 Home Medications Medication Instructions Recorded Confirmed Type apixaban 5 mg tablet 5 mg PO BID 10/26/18 06/09/24 History aspirin 81 mg tablet,delayed 81 mg PO HS 10/26/18 06/09/24 History release (Ecotrin Low Strength) cetirizine 10 mg tablet (Zyrtec) 10 mg PO HS 10/26/18 06/09/24 History fluticasone propionate 50 2 spray intranasal DAILY 10/26/18 06/09/24 History mcg/actuation nasal spray,suspension (Flonase Allergy Relief) magnesium oxide 400 mg PO QAM 10/26/18 06/09/24 History rosuvastatin 40 mg tablet 40 mg PO HS 10/26/18 06/09/24 History omeprazole 20 mg tablet,delayed 40 mg PO QAM 05/15/20 06/09/24 History release ascorbic acid (vitamin C) 500 mg 500 mg PO QAM 02/18/21 06/09/24 History capsule cyanocobalamin (vitamin B-12) 1,000 mcg sublingual QAM 02/18/21 06/09/24 History 1,000 mcg sublingual tablet hydrocortisone 2.5 % topical cream 1 applic LA UD PRN Hemorrhoids 11/01/21 06/09/24 History with perineal applicator (Procto-Med HC) metoprolol succinate 50 mg 25 mg PO BID 02/18/22 06/09/24 History tablet,extended release 24 hr OneTouch Verio test strips (blood #400 ea 06/03/22 05/24/24 Rx sugar diagnostic) Dexcom G7 Sensor (blood-glucose #9 ea 05/24/24 05/24/24 Rx sensor) docusate sodium 100 mg capsule 100 mg PO DAILY 05/24/24 06/09/24 History pen needle, diabetic 32 gauge x #500 ea 05/24/24 05/24/24 Rx 5/32" (BD Aisha 2nd Gen Pen Needle) acetaminophen 325 mg tablet 650 mg PO BID PRN Pain 06/09/24 06/09/24 History (Tylenol) clobetasol 0.05 % scalp solution 1 applic topical BID PRN SKIN 06/09/24 06/09/24 History IRRITATIONS empagliflozin 25 mg tablet 25 mg PO DAILY 06/09/24 06/09/24 History (Jardiance) insulin aspart U-100 100 unit/mL 25 unit subcut TID 06/09/24 06/09/24 History (3 mL) subcutaneous pen (Novolog FlexPen U-100 Insulin aspart) insulin glargine U-300 conc 300 72 unit subcut DAILY 06/09/24 06/09/24 History unit/mL (1.5 mL) subcutaneous pen (Toujeo SoloStar U-300 Insulin) mineral oil (Mineral Oil Heavy 15 ml PO DAILY PRN Constipation 06/09/24 06/09/24 History oral) potassium chloride 20 mEq 10 meq PO 4XWK 06/09/24 06/09/24 History tablet,extended release triamcinolone acetonide 0.1 % 1 applic topical BID PRN SKIN 06/09/24 06/09/24 History topical cream IRRITATIONS Patient History Medical History Atrial fibrillation DX 2005 ? , follows with Dr. Diaz, HX 2 CARDIOVERSIONS CAD (coronary artery disease) (09/26/14) Chronic constipation Degenerative disc disease Depression no meds Diabetes mellitus, type 2 Diarrhea "comes and goes" Diverticular disease Elevated liver enzymes Excessive thirst ONGOING "IT'S BEEN FOREVER" NOTICE IT FIRST THING IN THE MORNING GERD (gastroesophageal reflux disease) Hiatal hernia History of anesthesia reaction PER PT WITH HEAVY ANESTHESIA GI MOTILITY SLOWS DOWN History of atrial flutter History of cardioversion x2--last one 09/26/2013 History of COVID-19 07/2022, home test and pcr test [facility]-admitted for 2 days; intestinal symptoms-given antiviral>resolved. History of dizziness RESOLVED History of ileus HTN (hypertension) (09/26/14) Hx of hemorrhoids "currently having a lot of bleeding from his hemorrhoids" Hyperlipidemia (09/26/14) Nausea and vomiting after administration of anesthetic agent On anticoagulant therapy on eliquis Osteoarthritis Partial small bowel obstruction (11/28/13) hx Sciatic nerve pain Sleep apnea BIPAP Tortuous colon BORN WITH Surgical History History of appendectomy History of cardiac cath 2008, [facility], x1 stentl; f/u dr diaz, s History of cardiac radiofrequency ablation x3--2007/2009/2010 for A-fib @ [facility] [place] History of cataract surgery bilat. History of cholecystectomy History of colonoscopy pt stated that he needs the "pediatric scope" History of esophagogastroduodenoscopy (EGD) History of eye surgery x2--bug removal and piece of tree History of heart artery stent 2007--[facility] History of liver biopsy d/t elevated liver functions--"was ok" History of tonsillectomy and adenoidectomy History of wisdom tooth extraction Hx of right inguinal hernia repair Family History Sister Breast cancer Colonic polyp Mother CHF (congestive heart failure) Father CHF (congestive heart failure) Aneurysm Other No family history of adverse response to anesthesia Past medical history not known due to adoption Social History Smoking Status: Never smoker 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 He has no significant pain to palpation of the lumbar musculature bilateral sacroiliac notch. Is negative logroll. Is good strength testing. Results & Data Vital Signs (Past 12 Hours) Vital Signs Temp Pulse Pulse Resp BP BP Pulse Ox 06/11/24 07:09 36.4 C L 73 16 106/70 96 06/11/24 03:12 36.9 C 73 18 94/60 L 96 06/10/24 23:22 36.4 C L 73 16 91/54 L 94 06/10/24 22:15 06/10/24 21:48 71 O2 Del Method 06/11/24 07:09 Room Air 06/11/24 03:12 Room Air 06/10/24 23:22 Room Air 06/10/24 22:15 Room Air 06/10/24 21:48 (1) Back pain Back pain laterality: right Back pain location: low back pain Chronicity: acute Sciatica laterality: sciatica of right side Sciatica presence: with scia silvia Qualified Code(s): M54.41 - Lumbago with sciatica, right side
[2024-06-11] MEDS: LANTUS PER UNIT CHARGE SC SCH (08:40)
[2024-06-11] MEDS ORDERED: LANTUS PER UNIT CHARGE SC SCH (09:00)
--- NOTE | 2024-06-11 14:19 | Discharge Summary ---
Discharge Summary Date of Service June 11, 2024 Principal Dx & Hospital Course #1 = Principal Diagnosis (1) Atrial flutter: Plan Pt is a 73yoM with PMHx significant for CAD status post stent, history atrial flutter status post ablation on Eliquis, hypertension, hyperlipidemia, COPD, IFRAH on BiPAP, GERD, DM 2 insulin requiring, chronic back pain, RLS, past tobacco abuse presenting with intractable lower back pain. Lumbar radiculopathy Pt presenting with severe back pain, unable to get out of the car CT lumbar spine noting severe degenerative changes but no acute fracture MRI lumbar spine noting DDD Pain control- pt requiring relief only with a lidocaine patch on the day of discharge PT/OT- recommencing return home with [facility] Baker consulted, stated the following: "Assessment lumbar sprain strain. Plan at this time in length yesterday with patient reviewing his CAT scan and MRI findings. He does have evidence of multilevel spondylosis but no severe neural compression. I suspect this is a sprain strain only. He should continue with physical therapy and follow-up in the as needed in the future." Please ensure follow up with PT and ortho spine as needed. Atrial flutter with RVR Noted in the ER likely secondary to lumbar radiculopathy History ablation on Eliquis EKG noting atrial flutter Trop x1 wnl Echo noted atrial flutter with intermittent RVR, EF 50-55%, mod dilated LA, aortic valve sclerosis w/o stenosis, treace TR, MR, no pulmonary HTN s/p IV Lopressor 1 dose Continued home Toprol XL 25mg BID Continued home eliquis Cardiology consulted, stated/recommended the following: "73-year-old male admitted with back and hip discomfort. Incidentally noted recurrent atrial flutter. Heart rates elevated however improved currently. Denies palpitations, lightheadedness, or dizziness. Repeat echocardiogram stable. Recommend continuing current medications including metoprolol and Eliquis. Outpatient follow-up scheduled with electrophysiology. No further inpatient cardiac testing or intervention recommended at this time." Please ensure close Cardiology and EP followup after discharge. Possible Pneumonia, left lung base Pulmonary nodule Pt currently without symptoms possible pneumonia with left lower lobe infiltrate noted on chest xray and abd pelvis CT Procal normal Chest CT ordered for further evaluation -no pneumonia noted PCP f/u for pulmonary nodule moderate to severe coronary calcifications noted on CT chest Cardiology/PCP followup Cirrhosis Incidental finding of cirrhosis on imaging Outpatient GI consult for cirrhosis workup along with pcp f/u Prostatomegaly Distended urinary bladder Noted on imaging Per Nursing pt has been voiding without issues, and a post void bladder scan was 0. No mustafa placement at this time Consider Urology followup hx CAD status post stent hypertension stable hyperlipidemia on statin Rx COPD IFRAH on BiPAP patient without pulmonary complaints DM 2 insulin requiring well-controlled as of recent hemoglobin A1c of 5.5% Basal bolus insulin, ISS BG goal 1 10-1 40, carb count coverage PCP followup Notes For Next Care Provider Please ensure followup with physical therapy services Please ensure followup with orthopedic spine surgery Please ensure followup with Cardiology and the Court Security Officer Medication Changes From Visit lidocaine 4% patch daily Tramadol 25mg po qhs PRN for severe pain methocarbamol 500mg TID PRN for muscle spasms Admission HPI Per Admitting Provider History obtained from patient, family, and records. Medical history significant for CAD status post stent, history atrial flutter status post ablation on Eliquis, hypertension, hyperlipidemia, COPD, IFRAH on BiPAP, GERD, DM 2 insulin requiring, chronic back pain, RLS, past tobacco abuse. Last confinement August 2022 for SBO and COVID-19 infection. SBO resolved with conservative management. Patient noted worsening of chronic low back pain with radiation to lower extremities 2 days ago after working on sister's linoleum floor. No fever, no chills, no leg weakness, no incontinence. Trouble moving around and getting out of the car today. Denies headache, chest pain, SOB. Patient noted to be in rapid atrial flutter at the ER. 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 Admission Exam Per Admitting Provider GENERAL: Comfortable, pleasant, obese, no respiratory distress SKIN: Normal color, warm HEENT: [place] palpebral conjunctivae, no ptosis, dry buccal mucosa NECK : Supple, short neck, no tenderness CHEST : CTA, no tenderness HEART : Tachycardic, no obvious murmurs ABDOMEN: Some distention, nontender BACK : Low back tenderness, positive straight leg raise R EXTREMITIES : Minimal LE swelling without LE tenderness, no other conspicuous deformities noted NEUROLOGIC : Coherent, no facial asymmetry, no other gross focality Discharge Exam General: Alert, oriented. No acute distress Skin: No noted rashes or bruises Psych: Appropriate mood and affect Neuro: sitting up in chair at bedside, improved ability to move HEENT: NC/AT CV: RRR Resp: Breath sounds clear bilaterally, no increased effort of breathing. Abdomen: Soft, nontender Extremities: no edema in lower extremities bilaterally. Updated Medication List Medication Instructions Recorded Confirmed Type apixaban 5 mg tablet 5 mg PO BID 10/26/18 06/09/24 History aspirin 81 mg tablet,delayed 81 mg PO HS 10/26/18 06/09/24 History release (Ecotrin Low Strength) cetirizine 10 mg tablet (Zyrtec) 10 mg PO HS 10/26/18 06/09/24 History fluticasone propionate 50 2 spray intranasal DAILY 10/26/18 06/09/24 History mcg/actuation nasal spray,suspension (Flonase Allergy Relief) magnesium oxide 400 mg PO QAM 10/26/18 06/09/24 History rosuvastatin 40 mg tablet 40 mg PO HS 10/26/18 06/09/24 History omeprazole 20 mg tablet,delayed 40 mg PO QAM 05/15/20 06/09/24 History release ascorbic acid (vitamin C) 500 mg 500 mg PO QAM 02/18/21 06/09/24 History capsule cyanocobalamin (vitamin B-12) 1,000 mcg sublingual QAM 02/18/21 06/09/24 History 1,000 mcg sublingual tablet hydrocortisone 2.5 % topical cream 1 applic WA UD PRN Hemorrhoids 11/01/21 06/09/24 History with perineal applicator (Procto-Med ) metoprolol succinate 50 mg 25 mg PO BID 02/18/22 06/09/24 History tablet,extended release 24 hr OneTouch Verio test strips (blood #400 ea 06/03/22 05/24/24 Rx sugar diagnostic) Dexcom G7 Sensor (blood-glucose #9 ea 05/24/24 05/24/24 Rx sensor) docusate sodium 100 mg capsule 100 mg PO DAILY 05/24/24 06/09/24 History pen needle, diabetic 32 gauge x #500 ea 05/24/24 05/24/24 Rx 5/32" (BD Aisha 2nd Gen Pen Needle) acetaminophen 325 mg tablet 650 mg PO BID PRN Pain 06/09/24 06/09/24 History (Tylenol) clobetasol 0.05 % scalp solution 1 applic topical BID PRN SKIN 06/09/24 06/09/24 History IRRITATIONS empagliflozin 25 mg tablet 25 mg PO DAILY 06/09/24 06/09/24 History (Jardiance) insulin aspart U-100 100 unit/mL 25 unit subcut TID 06/09/24 06/09/24 History (3 mL) subcutaneous pen (Novolog FlexPen U-100 Insulin aspart) insulin glargine U-300 conc 300 50 unit subcut DAILY 06/09/24 06/11/24 History unit/mL (1.5 mL) subcutaneous pen (Toujeo SoloStar U-300 Insulin) mineral oil (Mineral Oil Heavy 15 ml PO DAILY PRN Constipation 06/09/24 06/09/24 History oral) potassium chloride 20 mEq 10 meq PO 4XWK 06/09/24 06/09/24 History tablet,extended release triamcinolone acetonide 0.1 % 1 applic topical BID PRN SKIN 06/09/24 06/09/24 History topical cream IRRITATIONS lidocaine 4 % topical patch 1 patch topical DAILY #30 ea 06/11/24 Rx methocarbamol 500 mg tablet 500 mg PO TID PRN muscle spasm #30 06/11/24 Rx tabs tramadol 25 mg tablet 25 mg PO HS PRN pain, severe #7 06/11/24 Rx tabs Hospital Stay Data Consultations 06/09/24 21:14 ED Decision to Admit Stat 06/10/24 09:19 Consult Cardiology Routine 06/10/24 15:44 Consult Orthopedic Spine Surgery Routine Diagnostic Imagining Performed 06/09/24 18:12 CT lumbar spine wo con Stat CT stones [CT abd pelvis wo con] Stat 06/10/24 09:17 CT chest diagnostic wo con Urgent 06/10/24 09:25 MRI Lumbar Spine [MR lumbar spine wo con] Urgent Abdomen/Pelvis CT 06/09/24 18:12 Exam(s): CT ABDOMEN + PELVIS Without Contrast EXAM: CT Abdomen and Pelvis Without Intravenous Contrast CLINICAL HISTORY: Reason for exam: r flank pain. TECHNIQUE: Axial computed tomography images of the abdomen and pelvis without intravenous contrast. CTDI is 27.74 mGy and DLP is 1450.45 mGy-cm. Automated exposure control was utilized for the study. A dose lowering technique was utilized adhering to the principles of ALARA. COMPARISON: CT abdomen pelvis 08/14/22. FINDINGS: Lung bases: Moderate cardiomegaly, mild vascular prominence and mild dependent infiltrate left lower lobe, with small, 6 mm pulmonary nodule. Liver: Somewhat small and lobular, possible cirrhosis. Gallbladder and bile ducts: Cholecystectomy. No ductal dilation. Pancreas: No ductal dilation. Spleen: Mildly enlarged, stable. Adrenals: Unremarkable. Kidneys and ureters: No renal stone or hydronephrosis. Stomach and bowel: Diverticulosis and moderate fecal loading of the colon, without acute diverticulitis. No obstruction. Appendix: Not seen. No acute appendicitis. Intraperitoneal space: No free air or fluid. Bones/joints: No acute fracture. Soft tissues: Unremarkable. Vasculature: No aortic aneurysm. Lymph nodes: No enlarged lymph nodes. Bladder: Moderately distended, nonspecific, may be physiologic cannot rule out urinary retention or bladder outlet obstruction. No stones. Reproductive: Mild, nonspecific prostatomegaly. IMPRESSION: 1. No acute intra-abdominal or intrapelvic abnormality. 2. Suspect cirrhosis with splenomegaly, correlate clinically. These findings are stable. 3. Prostatomegaly and distended urinary bladder, nonspecific, may be physiologic cannot rule out urinary retention or bladder outlet obstruction. 4. Mild left lower lobe infiltrate and small nodule, nonspecific. Electronically signed by: Ashlee De La Rosa M.D. 06/09/24 20:[address] 06/09/24 18:12 Exam(s): CT L SPINE EXAM: CT Lumbar Spine Without Intravenous Contrast CLINICAL HISTORY: Reason for exam: lower back pain and r flank pain. TECHNIQUE: Axial computed tomography images of the lumbar spine without intravenous contrast. CTDI is 27.74 mGy and DLP is 1450.45 mGy-cm. Automated exposure control was utilized for the study. A dose lowering technique was utilized adhering to the principles of ALARA. COMPARISON: None. FINDINGS: Vertebrae: Osteoporosis and degenerative change. No acute fracture. Discs/spinal canal/neural foramina: Severe degenerative change diffusely. Soft tissues: CT a/p also done, dictated separately. IMPRESSION: 1. No fracture or acute bony abnormality. Electronically signed by: Ashlee De La Rosa M.D. 06/09/24 20:44 PM Chest X-Ray 06/09/24 20:49 XR chest 1V portable HISTORY: Cough. ?PNA COMPARISON: Chest 08/19/2023. FINDINGS: No pneumothorax. The heart remains enlarged. No evidence for pulmonary edema. No acute fractures. Small patchy density at the left lung base. No evidence for pulmonary edema. IMPRESSION: 1. Small patchy density at the left lung base. This may represent atelectasis or a developing pneumonia. 2. Stable cardiomegaly. ACT 112: Negative or not required by law. Electronically signed by: John Castanon M.D. 06/10/2024 7:[address] 06/10/24 09:17 CT chest diagnostic wo con CT DOSE: 791.84 mGy.cm HISTORY: f/u possible pneumonia on imaging TECHNIQUE: Multiaxial CT images of the chest were performed without contrast. A dose lowering technique was utilized adhering to the principles of ALARA. COMPARISON: Abdomen and pelvis CT 06/09/2024. FINDINGS: No pneumothorax. No pleural effusions. The central airways are patent. There is a 6 mm nodule within the left lower lobe on image 199. There are few punctate calcified granulomas within the left lower lobe. No focal lung consolidations to suggest a pneumonia. No evidence for pulmonary edema. There are few small blebs seen within the lungs. There is a 3 mm nodule within the right middle lobe on image 164. There is a 3 mm nodule within the right upper lobe on image 69. No acute fractures within the chest. Limited views of the upper abdomen demonstrate a cirrhotic liver and a normal spleen. The adrenal glands unremarkable. Prior cholecystectomy. Normal esophagus. The heart is mildly enlarged. No pericardial effusion. Normal caliber thoracic aorta. Moderate to severe coronary artery calcifications are noted. No mediastinal or hilar lymphadenopathy. IMPRESSION: 1. No focal lung consolidations to suggest a pneumonia. 2. A 6 mm indeterminate pulmonary nodule within the left lower lobe. Please refer to the chart below for recommended follow-up. 3. Mild cardiomegaly. 4. Moderate to severe coronary artery calcifications. 5. Cirrhotic liver. Please refer to below summary of Fleischner criteria recommendations for follow- up of incidental CT nodules (Renetta Tran, Guidelines for management of small pulmonary nodules detected on CT scans: A statement from the Fleischner Society, Radiology 237: [phone].) SOLID NODULES Solitary nodule size: <6 mm * Low risk patients: no follow-up needed * high risk patients: optional CT at 12 months Solitary nodule size: 6-8 mm * Low risk patients: follow-up at 6-12 months, then consider further follow-up at 18-24 months * high risk patients: initial follow-up CT at 6-12 months and then at 18-24 months if no change Solitary nodule size: >8 mm * either low or high risk patients - consider follow-up CT at 3 months, and/or CT-PET, and/or biopsy Multiple nodules size: <6 mm * Low risk patients: no routine follow-up * high risk patients: optional CT at 12 months Multiple nodules size: 6-8 mm * Low risk patients: follow-up at 3-6 months, then consider further follow-up at 18-24 months * high risk patients: follow-up at 3-6 months, then at 18-24 months if no change Multiple nodules size: >8 mm * Low risk patients: follow-up at 3-6 months, then consider further follow-up at 18-24 months * high risk patients: follow-up at 3-6 months, then at 18-24 months if no change Note: newly detected indeterminate nodule in persons 35 years of age or older. * Low risk patients: minimal or absent history of smoking and/or other known risk factors * high risk patients: history of smoking or of other known risk factors (e.g. first degree relative with lung cancer, or exposure to asbestos, radon, uranium) * if a nodule up to 8 mm is partly solid or is ground glass further follow-up is required after 24 months to exclude possible slow growing adenocarcinoma (DEANA) SUBSOLID NODULES Solitary pure ground-glass nodule * nodule size <6 mm - no CT follow-up required * nodule size >=6 mm - follow-up CT at 6-12 months, then every 2 years until 5 years Solitary part-solid nodule * nodule size <6 mm - no CT follow-up required * nodule size >=6 mm - follow-up CT at 3-6 months. If unchanged, and solid component remains <6 mm, then annual follow-up for 5 years Multiple subsolid nodules * nodule size <6 mm - follow-up CT at 3-6 months, consider further follow-up at 2 and 4 years if stable * nodule size >=6 mm - follow-up CT at 3-6 months, subsequent management based on the most suspicious nodule(s) ACT 112: Negative or not required by law. Electronically signed by: John Castanon M.D. 06/10/2024 11:27 AM Lumbar Spine MRI 06/10/24 09:25 LUMBAR SPINE MRI HISTORY: Intractable lower back pain TECHNIQUE: Multiplanar multisequence MRI of the lumbar spine was performed without the use of contrast. COMPARISON: Lumbar spine CT 06/09/2024. Lumbar spine MRI 06/10/2007. FINDINGS: For the purpose of the report the L5-S1 disc space will be located on axial image 27 of 30. No fracture or subluxation within the lumbar spine. The L3-S1 vertebral bodies are partially fused which accounts for the disc space narrowing. The L1-L2 and L2-L3 disc spaces are preserved. Moderate to severe facet degenerative changes most pronounced at the L4-5 level. The visualized sacrum is intact. Paravertebral soft tissues are unremarkable. Broad-based posterior disc bulge T12-L1 resulting in mild central canal narrowing. No significant neural foraminal narrowing. L1-L2: Broad-based posterior disc bulge with a focal central annular tear. In conjunction with the ligamentum and facet hypertrophy this results in mild central canal and mild bilateral neural foraminal narrowing. L2-L3: Broad-based posterior disc bulge with significant ligamentum flavum and facet hypertrophy resulting in [id number] central canal and mild to moderate bilateral neural foraminal narrowing. L3-L4: No significant central canal narrowing. There is mild bilateral neural foraminal narrowing due to the endplate osteophytes and facet hypertrophy. L4-L5: No significant central canal narrowing. There is mild to moderate right and mild left neural foraminal narrowing due to the endplate osteophytes and facet hypertrophy. L5-S1: No significant central canal or neural foraminal narrowing. IMPRESSION: 1. No fracture or subluxation of the lumbar spine. 2. Degenerative changes as described above most pronounced at the L2-L3 level. ACT 112: Negative or not required by law. Electronically signed by: John Castanon M.D. 06/10/2024 12:59 PM Discharge Instructions Given to Patient (Per Discharging Provider) Mr. Ezequiel, You were seen by the orthopedic spine surgeon and he recommends that you continue with the physical therapy services you receive at the [place]. While here your pain has been controlled, and you are only now requiring a lidocaine patch for relief. We are discharging you home with lidocaine patches and a few doses of Tramadol to use only when you have severe pain. Please take it as prescribed. Also dicharging you home with the muscle relaxer methocarbamol for use as needed for muscle spasms. Your heart rate was also elevated while here in the setting of atrial flutter. You were seen by the jewel grinder who recommends that you continue with your current home medication regimen and that you follow up closely with your making machine operator and jewel grinder after discharge. Please keep close follow up with your primary care provider after discharge as well. Please do not hesitate to come back to the emergency room if your symptoms worsen or return. It was a pleasure taking care of you while you were here. Total Time Total Time Spent Total Time Spent (In Minutes): 65
== END 2024-06-11 15:34 | disposition home or self-care (01) ==
LOC: ED 18:01 → 2E 18:01

== ENCOUNTER 2025-01-08 09:01 | Inpatient (IN) ==
--- OUTSIDE RECORDS SUMMARY | 2025-01-08 09:08 | External Medical Summary | Summary of Care ---
Author Name Unknown Organization [facility] Address [address] [facility] [place] [address] Phone [phone] Care Team Providers Care Dermatology Sales Representative Name Role Phone Nicolás Benedict MD Primary Care Provider [phone] Reason for Visit * Reason Comments Diabetic Foot Care * Evaluate & Treat - Unlimited Visits (Within 30 days (routine)) - Authorized Specialty Diagnoses / Procedures Referred By Mary Ellen ram Referred To Contact Podiatry Diagnoses Type 2 diabetes mellitus with hemoglobin A1c goal of less than 8.0% (HCC) DM type 2 with diabetic peripheral neuropathy (HCC) Nicolás Benedict MD [address] [place] [address] Phone: tel: fax: Referral ID Status Reason Start Date Expiration Date Visits Requested Visits Authorized [id number] Authorized Specialty Services Required [id number] [phone] Encounter Details Date Type Department Care Team (Late st Contact Info) Description 12/05/2024 11:40 AM EST Office Visit Podiatry [facility] [address] [place] [phone] Zeenat Palacio DPM [address] [place] [address] [place] [id number] DM type 2 with diabetic peripheral neuropathy (HCC)*; Onychomycosis; Pain in toes of both feet Allergies Active Allergy Reactions Criticality Noted Date Comments Atorvastatin Muscle pain 04/17/2017 Doxycycline Other (Please comment) Medium 09/03/2015 Body aches Gabapentin 05/15/2023 Kimball off Iodinated Contrast Media Low 10/26/2018 Other reaction(s): RASH Latex Rash Low 10/26/2018 Metformin 10/04/2014 Severe diarrhea Morphine Medium 04/17/2017 Other reaction(s): RASH AND SWELLING Morphine And Codeine Rash 12/13/2008 Red blotches Oxycodone 08/18/2023 Other Reaction(s): GI UPSET Percocet Nausea/vomiting 11/01/1998 GI upset - N/V Simvastatin Muscle pain 04/17/2017 documented as of this encounter (statuses as of 12/05/2024) Medications ASPIRIN 81 MG PO TABS 1 TABLET DAILY 30 0 10/24/20 05 Active COLACE 100 MG PO CAPS one tablet daily Act gayla ondansetron (ZOFRAN) 4 MG Tablet Take 1 Tab by mouth every 8 hours as needed for Nausea. 20 Tab 11/17/19 18 Active Albuterol Sulfate HFA 108 (90 Base) MCG/ACT Inhalation Aerosol SolutionIndication s:Chronic cough,History of 2019 novel coronavirus disease (COVID-19),Mild intermittent reactive airway disease without complication Inhale 2 Puffs by mouth every 6 hours as needed for Cough, Shortness of Breath or Wheezing. 18 g 2 01/27/20 23 Active Fluticasone Propionate 50 MCG/ACT Nasal Suspension (Flonase)Indicatio ns:Acute nasopharyngitis INSTILL TWO SPRAY IN EACH NOSTRIL EVERY DAY 52 g 3 01/27/20 23 Active Misc. DevicesIndications :Onychomycosis,Lef t foot pain Dispense one pair diabetic shoes, extra depth with 3 pair pre-fabricated accommodative inserts. Diagnosis: Type II DM, Pain in feet 1 Each 01/27/20 23 Active Mineral Oil OilIndications:Hea lthcare maintenance as needed 1000 mL 3 01/27/20 23 Active Multi-Vitamin Oral TabletIndications: Healthcare maintenance Take 1 Tablet by mouth in the morning. 90 Tablet 3 01/27/20 23 Active Vitamin C 500 MG Oral Tablet (Ascorbic Acid)Indications:H ealthcare maintenance Take 1 Tablet by mouth in the morning. 90 Tablet 3 01/27/20 Active Apixaban 5 MG Oral Tablet (Eliquis)Indicatio ns:Typical atrial flutter (HCC),Chronic atrial fibrillation (HCC),S/P angioplasty with stent Take 1 Tablet by mouth in the morning and 1 Tablet before bedtime. 180 Tablet 03/02/20 Active Cetirizine HCl 10 MG Oral Tablet (ZyrTEC)Indication s:Allergic rhinitis Take 1 Tablet by mouth in the morning. 90 Tablet 3 03/02/20 Active Cyanocobalamin 1000 MCG Oral Tablet (Cyanocobalamin)In dications:Healthca re maintenance Take 1 Tablet by mouth in the morning. 90 Tablet 03/02/20 Active NovoLOG FlexPen 100 UNIT/ML Subcutaneous Solution Pen-injectorIndica tions:Type 2 diabetes mellitus with hemoglobin A1c goal of less than 7.0% ([facility]) inject subcutaneously UP TO 30 UNITS WITH 3 MEALS DAILY 18 mL 03/02/20 Active OneTouch Delica Lancets 33GIndications:Typ e 2 diabetes mellitus with hemoglobin A1c goal of less than 7.0% ([facility]) Use 1-2 /day for Type II diabetes- DX:E11.9 100 Each 11 03/02/20 Active OneTouch Verio In Vitro Strip (Glucose Blood)Indications: Type 2 diabetes mellitus with hemoglobin A1c goal of less than 7.0% ([facility]) Test glucose 5-6 times dailyDiagnosis code: E11.9 600 Strip 03/02/20 Active Rosuvastatin Calcium 40 MG Oral Tablet (Crestor)Indicatio ns:Dyslipidemia, goal LDL below 70 Take 1 Tablet by mouth in the morning. 90 Tablet 03/02/20 Active Calcium Carbonate Antacid 500 MG Oral Tablet ChewableIndication s:Hypokalemia Take 1 Tablet by mouth in the morning and 1 Tablet before bedtime. 180 Tablet 03/24/20 Active Probiotic Daily Oral Capsule Take 1 Capsule by mouth in the morning. Active Toujeo SoloStar 300 UNIT/ML Subcutaneous Solution Pen-injector (Insulin Glargine (1 Unit Dial)) Inject 74 Units under the skin daily at noon. Active Clobetasol Propionate 0.05 % External SolutionIndication s:Psoriasis Apply topically to affected area 2 times a day. To affected area for up to two weeks. 50 mL 1 01/31/202 4 2:43 PM EST 12/03/19 24 Active Triamcinolone Acetonide 0.1 % External Cream (Aristocort)Indica tions:Psoriasis,Ra sh and nonspecific skin eruption Apply topically to affected area 2 times a day as needed (rash on arm and legs). To affected area. 80 g 5 12/04/19 24 Active Systane Balance 0.6 % Ophthalmic Solution (Propylene Glycol) Instill 2 Drops into both eyes in the morning and 2 Drops at noon and 2 Drops before bedtime. Active Hydrocortisone (Perianal) 2.5 % External Cream (Proctozone-HC)Ind ications:Hemorrhoi ds, external without complications Administer into the rectum 2 times a day. 28 g 03/09/20 24 Active BD Pen Needle Original U/F 29G X 12.7MM Insulin pen needles, please dispense 3 boxes use as directed for subcutaneous insulin administration 3 Each 3 03/10/20 Active Empagliflozin 25 MG Oral Tablet (Jardiance) Take 1 Tablet by mouth in the morning. Active traMADol HCl 25 MG Oral Tablet 06/11/20 24 Active Magnesium Oxide 400 MG Oral CapsuleIndications :Healthcare maintenance Take 1 Capsule by mouth in the morning. 90 Capsule 3 07/27/20 24 Active Omeprazole 40 MG Oral Capsule Delayed Release (PriLOSEC)Indicati ons:Esophageal reflux Take 1 Capsule by mouth in the morning. 1 hour before the first meal of the day.. 90 Capsule 3 07/27/20 24 Active Potassium Chloride ER 10 MEQ Oral Tablet Extended Release 5 mEq in the morning. Take half a tablet daily. 10/10/20 Active Metoprolol Succinate ER 25 MG Oral Tablet Extended Release 24 Hour (toPROL XL)Indications:Chr onic atrial fibrillation (HCC) Take 0.5 Tablets by mouth 2 times a day. 10/10/20 Active Methocarbamol 500 MG Oral Tablet (Robamol) Take 1 Tablet by mouth in the morning and 1 Tablet at noon and 1 Tablet before bedtime. 90 Tablet 3 10/10/20 24 Active Additional Information Patient taking differently:500 mg OralDAILY PRN, Reported on 10/19/2024 Azithromycin 250 MG Oral Tablet (Zithromax Z-Nick) Take two tablets by mouth on first day, then 1 tablet daily until gone 6 Tablet 10/11/20 Active documented as of this encounter (statuses as of 12/05/2024) Active Problems Problem Noted Date Diagnosed Date Obesity, Class I, BMI 30.0-34.9 (see actual BMI) 06/20/2024 DM type 2 with diabetic peripheral neuropathy HTN, goal below 130/80 09/30/2023 Fibromyalgia 09/30/2023 Paroxysmal atrial fibrillation 12/23/2022 Tachy-terra syndrome 09/05/2021 Lumbar degenerative disc disease 09/05/2021 Aortic root dilatation 07/17/2021 Irritable bowel syndrome with diarrhea Dyslipidemia 05/02/2019 Type 2 diabetes mellitus wit h hemoglobin A1c goal of less than 8.0% 05/15/2016 Stenosis of cervical spine with myelopathy 09/24 Coronary artery disease invo [place]ving [place] coronary artery of [place] heart without angina pectoris 07/15/2014 Restless legs syndrome 12/19/2009 Overview (10/02/2010): 09/2010 - controlled on requip S/P ablation of atrial fibrillation 08/21/2009 S/P angioplasty with stent 09/05/2008 IFRAH treated with BiPAP 10/26/2002 Overview (12/29/2019): AHP documented as of this encounter (statuses as of 12/05/2024) Resolved Problems Problem Noted Date Diagnosed Date Resolved Date Petechial rash 11/12/2023 03/28/2024 Dermatitis 11/12/2023 03/28/2024 SBO (small bowel obstruction) 08/21/2022 12/23/2022 COVID-19 virus infection 08/21/2022 Gastrocnemius strain, left, initial encounter 09/05/2009/30/2023 Low back pain without sciatica 02/06/2021 09/30/2023 Pre-ulcerative corn or callous 05/02/2019 09/30/2023 Current use of insulin 05/02/201909/30 Gastroesophageal reflux disease 05/02/2019 09/30/2023 Coronary artery disease due to lipid rich plaque 05/02/2019 09/30/2023 Paroxysmal atrial fibrillation 05/02/2019 11/03/2019 Typical atrial flutter 10/29/201809/30 Chronic atrial fibrillation 10/29/2018 09/30/2023 Acute bilateral low back lc n without sciatica 05/15/2016 05/05/2017 Cholesteatoma of left mastoid 01/15/2015 10/29/2018 Overview (01/15/2015): Left Petrous [place] Atrial fibrillation 07/15/2014 05/02/20 19 Rectal bleeding 07/15/2014 09/30/2023 Diverticulosis of colon 07/15/201408/16 Metabolon Quantose IR Resear ch Study*[id number] 06/12/2014 10/19/2014 Overview (06/12/2014): METABOLON QUANTOSE IR STUDY. PROJECT: #[id number], COUNTER WAITRESS/WAITER: Usama Esteves MD/ Facundo Krause MD. SUMMARY: The Use of a Novel Insulin Resistance Test as a Monitoring Indicator of Glycemic Control in Prediabetics and Diabetics treated with metformin combined with lifestyle intervention. CONTACTS: During normal business hours, contact Elisa Apple RN, BSN at ; after hours Advertising Account Executive via the [facility] train system operator . Inguinal hernia, left 03/24/20142016 CHR MYCOT OTITIS EXTERNA, IMPROVED 09/03/2011 12/11/2017 Subjective tinnitus 07/18/2011 08/31/20 17 Other specified forms of hearing loss 07/18/2011 08/31/2017 Chronic otitis externa 07/18/201108/31 Foreign body in ear 07/18/2011 05/05/20 17 Chronic mycotic otitis externa 07/18/2011 08/31/2017 Other chronic sinusitis 07/18/201108/16 Pericardial effusion 05/27/2011 017 Overview (05/27/2011): Smal circumferential pericardial effusion noted by echo 01/2011 [employer] Other*[id number] 03/04/2011 03/14/2014 Overview (03/04/2011): PROJECT: #[id number], SPONSOR: Yobani, PI: Usama Esteves MD SUMMARY: Observational registry to better understand how patients with A-Fib are cared for (utilization, effectiveness, safety of antithrombotic therapy for stroke prevention). Patients are recruited through an invitational letter. Study data will be collected (by research staff) from the EHR for at least 2 years on consenting patients at approximate 6-month intervals when seen at routine clinic visits. There is no study intervention. A BPA will fire in office visit notes and is connected to a flowsheet which has 2-4 questions that must be answered by the visit provider before the encounter can be closed. CONTACT: Atif Garcia, Nursing Administrator Hypersomnia 10/02/2010 10/29/2018 Chronic rhinitis 05/01/2010 09/30/2023 COPD, mild 04/05/2010 05/02/2019 Overview (03/15/2013): 03/2010- Mild to moderate obstructive lung disease. Refusing maintenance inhalers. PFT 04/10/2011 @[facility] Dyslipidemia, goal LDL below 70 10/25/2009 09/30/2023 Overview (10/25/2009): Per Lipid Taxonomy. 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 Esophageal reflux 12/03/2005 08/31/2017 FIBROMYALGIA 10/24/2005 09/30/2023 PURE HYPERCHOLESTEROLEM 11/27/200410/16 Overview (10/25/2009): Per Lipid Taxonomy. Metabolic syndrome 05/03/2003 7 CERVICAL DISC DEGEN 11/02/2002 09/30/20 23 Elevated liver enzymes 09/30 Atrial fibrillation 07/15/20 14 documented as of this encounter (statuses as of 12/05/2024) Immunizations Name Administration Dates Next Due COVID-19 mRNA, LNP-s, No Pre serve, 2-Dose Series ([employer]) 09/27/2021,02/01/2021,01/11/2021 COVID-19, LNP-s, No Preserve , Jhonathan-sucrose, Ages 12+ (Pfizer) 08/20/2024,03/13/2022 Covid-19, Mrna, Lnp-s, Pf, B ivalent, 30 Mcg, IM, 12 yrs and above ([employer]) 12/01/2022 H1N1 2009 Influenza, IM 12/24/2009 Pneumococcal Conjugate Vacc, 13 Valent (Prevnar) 05/27/2017 Pneumococcal Polysaccharide PPV23 (Pneumovax) 10/29/2018,02/21/2009 Season Influenza, Quad, PF, Adjuvanted, 65+ Yrs, IM (FLUAD) 08/20/2024,08/29/2020 Seasonal Influenza Vac., MDV , IM, 0.5 mL (Fluzone) 08/23/2014,09/05/2013,09/07/2012,08/29,11/29/2009,09/04/2007 Seasonal Influenza Virus Vac cine, Unspecified Formulation 09/09/2019,10/29/2018,08/25/2017,08/16,08/29/2010,11/29/2009,09/04/2007 ,08/30/2003,09/16/2001 Seasonal Influenza, PF, 6 M & above, IM , (FluLaval or Fluzone) 09/09/2019,10/29/2018 Seasonal Influenza, Quadriva lent Hd (Fluzone Hd) 08/21/2022,08/20/2021 Seasonal Influenza, Quadriva lent, No Preserve, IM 10/05/2015 Seasonal Influenza, Quadriva lent, No Preserve, Peds 08/25/2017 Seasonal Influenza, Recombin ant, Trivalent, PF (Flublock) 09/10/2016 TDAP (age 10 and older)(Boostrix) 04/17/2017 TDAP, Age 7 and older, IM (Adacel) 02/21/2009 Varicella Zoster Vaccine (Adult) 04/17/2017 documented as of this encounter Social History Tobacco Use Types Packs/Day Years Used Date Smoking Tobacco: Never Smokeless Tobacco: Never Alcohol Use Standard Drinks/Week Comments Yes 0 (1 standard drink = 0.6 oz pur e alcohol) Rare beer AUDIT-C Answer Date Recorded Frequency of Alcohol Consumption Never 02/28/2019 Average Number of Drinks Not on file 019 Frequency of Binge Drinking Not on file 02/14 PHQ-2 Answer Date Recorded PHQ Adult Total Score 0 03/24/2023 Hunger Vital Sign Answer Date Recorded Within the past 12 months, y ou worried that your food would run out before you got the money to buy more. Never true 10/03/20 24 Within the past 12 months, t he food you bought just didn't last and you didn't have money to get more. Never true 10/03/2024 Childcare Answer Date Recorded Do you feel overwhelmed with taking care of a child, family member or friend? Yes 10/03/2024 Does your family need help f inding childcare? (Household - for ages 0-17 years) Not on file 10/03/2024 Clothing Answer Date Recorded Have you been unable to get clothing when it was really needed? No 10/03/2024 Is your family able to get c lothes or diapers when needed? (Household - for ages 0-17 years) Not on file 10/03/2024 Personal Safety Answer Date Recorded Do you feel unsafe or have concerns for your saf ety? No 10/03/2024 Do you have concerns for you r family's safety? (Household - for ages 0-17 years) Not on file 10/03/2024 Utilities Answer Date Recorded Do you have trouble paying y our heating, water, or electric bill? No 10/03/2024 Is your family able to pay t he heat, water, or electric bill? (Household - for ages 0-17 years) Not on file 10/03/2024 Does your family have access to good internet? (Household - for ages 0-17 years) Not on file 10/03/2024 Employment Status Answer Date Recorded Are you unemployed or without regular income? No 10/03/2024 Does the household have a re gular source of income? (Household - for ages 0-17 years) Not on file 10/03/2024 Social Connections Answer Date Recorded How often do you feel lonely or isolated from th ose around you? Rarely 10/03/2024 Financial Resource Strain Answer Date R ecorded Do you have any trouble payi ng for your medications, or do you think you might in the future? No 10/03/2024 Does your family have troubl e paying for medicine? (Household - for ages 0-17 years) Not on file 10/03/2024 Transportation Needs Answer Date Record ed Do you have trouble getting a ride to medical visits or work? (Adult - for ages 18 years and over) Not on file 10/03/2024 Does your family have a hard time getting a ride to doctors visits? (Household - for ages 0-17 years) Not on file 10/03/2024 Has lack of transportation k ept you from medical appointments, meetings, work, or from getting things needed for daily living? Check all that apply. No 10/03/2024 Do you (or your family) have trouble finding or paying for a ride (transportation)? (Household - for ages 0-17 years) Not on file 10/03/2024 Housing Stability Answer Date Recorded Do you currently live in a s helter or have no steady place to sleep at night? No 10/03/2024 Do you think you are at risk of becoming homeless? (Adult - for ages 18 years and over) Not on file 10/03/2024 Does your family worry about paying for your home or becoming homeless? (Household - for ages 0-17 years) Not on file 1 12/03/2023 Are you homeless or worried that you might be in the future? No 10/03/2024 Are you (or your family) yulia eless or worried that you might be in the future? (Household - for ages 0-17 years) Not on file Food Insecurity Answer Date Recorded Do you need food for this week? No 10/03/2024 Are you able to get enough f ood for your family? (Household - for ages 0-17 years) Not on file 10/03/2024 Does your family need food t his week? (Household - for ages 0-17 years) Not on file 10/03/2024 Do you always have enough fo od for your family? 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 He does have type 2 DM. He is unable to trim his own toenails. He notes an increase in blood sugars, now in the 200's.He attributes this to pain (neck/back). Medical necessity reason: type 2 DM with neuropathy Last primary care appointment: 10/10/2024 Nicolás Benedict MD Past Medical History: Diagnosis Date Atrial fibrillation (HCC) Chronic mycotic otitis externa 07/18/2011 Chronic otitis externa 07/18/2011 Coronary atherosclerosis of [place] coronary artery 07/19/2008 Diverticulosis of colon 07/15/2014 Dyslipidemia, goal LDL below 70 10/25/2009 Per Lipid Taxonomy. Dyslipidemia, goal to be determined Elevated liver enzymes 1989 Esophageal reflux 12/03/2005 Fibromyalgia 09/30/2023 Generalized osteoarthritis neck and shoulders HTN, goal below 130/80 09/30/2023 HTN, goal to be determined Inguinal hernia, left 03/24/2014 Obesity, Class I, BMI 30.0-34.9 (see actual BMI) 06/20/2024 Obstructive sleep apnea (adult) (pediatric) CPAP at 12 cwp Other chronic sinusitis 07/18/2011 Pneumonia Small bowel obstruction (HCC) Subjective tinnitus 07/18/2011 ALLERGIES: Review of patient's allergies indicates: Allergen Reactions Doxycycline Other (Please comment) Body aches Morphine Other reaction(s): RASH AND SWELLING Atorvastatin Muscle pain Gabapentin Kimball off Metformin Severe diarrhea Morphine [Morphine And Codeine] Rash Red blotches Oxycodone Other Reaction(s): GI UPSET Percocet Nausea/vomiting GI upset - N/V Zocor [Simvastatin] Muscle pain Ivp Dye [Iodinated Contrast Media] Other reaction(s): RASH Latex Rash REVIEW OF SYSTEMS: N/A FOCUSED PODIATRIC EXAM: Vascular: Pedal pulses palpable including dorsalis pedis and posterior tibial artery at 2/4 bilaterally. Capillary refill time is within normal limits to all toes. No edema noted. No warmth. Pedal hair growth noted. Neurologic: Sensation (light touch) intact to the bilateral lower extremities. Dermatological: Skin temperature, texture, and turgor are within normal limits. No open lesions. There is no erythema or ecchymosis noted. No interdigital changes. The right toenails 1,4, 5 and left toenails 1, 4, 5are thickened >4mm, elongated and discolored. Musculoskeletal: Mild discomfort noted with palpation of all toenails. Hemosiderin deposition to the dorsal feet andlower legs. Class Findings for Routine Foot Care Class A Findings: None Class B Findings: Advanced trophic changes (at least three of the following): hair growth (decreaseor absence), nail changes (thickening), and pigmentary changes (discoloration) Class C Findings: Edema and Paresthesia (abnormal spontaneous sensations in feet) Modifier: Q9 - 1 Class B Finding and 2 Class C Findings DIAGNOSTIC STUDIES: Hemoglobin AIC Results: Lab Results Component Value Date/Time HEMOGLOBIN A1C - [facility] 6.2 (H) 10/31/2024 12:38 PM HEMOGLOBIN A1C - [facility] 6.0 (H) 08/29/2022 09:06 AM HEMOGLOBIN A1C - [facility] 6.2 (H) 02/24/2022 09:45 AM HEMOGLOBIN A1C - [facility] 6.1 (H) 10/30/2020 10:27 AM HEMOGLOBIN A1C - [facility] 5.7 (H) 05/10/2020 10:12 AM HEMOGLOBIN A1C - [facility] 5.5 03/18/2019 01:11 PM ASSESSMENT: 1. DM type 2 with diabetic peripheral neuropathy (HCC) 2. Onychomycosis TA T3 T4 T5 T8 T9 3. Pain in toes of both feet PLAN: Procedure: After mild cleansing and drying of feet, toenails 1-5 bilaterally were manually and mechanically debrided without incident. A nail splitter was used to remove all incurvating edges. A nail expert wasused to trim nail to appropriate length. An electrical bur was used in a side to side motion to reduce nail thickness, hypertrophic growth, and to smooth all edges. Patient tolerated well. They noted improvement following procedure. Follow up: 3 months Zeenat Palacio DPM documented in this encounter Nursing Notes * Quita Burnett LPN - 12/05/2024 11:41 AM EST Pt presents for routine diabetic foot care, occasionally will have pain under great toenail. BSG 207 right now, had breakfast 2 hours ago. documented in this encounter Plan of Treatment Upcoming Encounters Date Type Department Care Team (Late st Contact Info) Description 12/13/2024 1:00 PM EST Office Visit Hepatology, [facility] [address] [facility] [place] [id number] Jayda Rodriguez MD [facility] [place] [address] 01/13/2025 1:30 PM EST Office Visit Cardiology, [facility] [address] [address] Talon Diaz PA-C [address] [place] [address] 03/15/2025 11:40 AM EDT Office Visit Podiatry [facility] [address] [place] [phone] Zeenat Palacio, DPM [address] [place] [address] 04/12/2025 11:40 AM EDT Office Visit Family Practice [facility] [address] [place] [address] Nicolás Benedict MD [address] [place] [address] 10/18/2025 3:30 PM EST Office Visit [facility]iology, [facility] [place] [address] Quin Gamino IV, MD [address] [place] [address] Scheduled Referrals Name Type Priority Associated Diagnoses Orde r Schedule PODIATRY REFERRAL OP Referral Within 30 days (routine) Type 2 diabetes mellitus with hemoglobin A1c goal of less than 8.0% (HCC) DM type 2 with diabetic peripheral neuropathy (HCC) Ordered: 11/02/2024 Health Maintenance Due Date Last Done Comments Cologuard 1996 Sigmoidoscopy 1996 Fecal Occult Blood Test 12/18/2002 12/18/2001 Zoster Vaccines (2 of 3) 06/12/2017 04/17/2017 Adult Wellness Visit 09/09/2022 09/09/2021 Diabetic Foot Exam 12/23/2023 12/23/2022, 1 01/04/2019, 10/29/2018, Additional history exists Depression Screening 03/24/2024 03/24/2023 HbA1c 05/01/2025 10/31/2024, 02/2024, 01/08/2024, Additional history exists GFR 07/20/2025 07/20/2024, 12/18, 11/12/2023, Additional history exists Diabetic Eye Exam 08/12/2025 08/12/2024, , 06/29/2023, Additional history exists Albumin/Creatinine Ratio 10/31/20252 024, 07/20/2024, 08/29/2022, Additional history exists DTap/Tdap Vaccines (3 - Td or Tdap) 04/17/2027 04/17/2017, 02/21/2009, 07/24/1993 Colonoscopy 12/31/2027 12/31/2022, 12/17, 01/18/2019, Additional history exists Colorectal Cancer Screening 12/31/2027 Pneumococcal Vaccine: 50+ Years Completed 10/29/2018, 05/27/2017, 02/21/2009 RETIRED - COLONOSCOPY-EVERY 5 YRS AGES 18-100 Discontinued 12/31/2022, 12/31/2022, 01/18/2019, Additional history exists COVID-19 Vaccine Completed 08/20/2024, , 09/22/2023, Additional history exists Influenza Vaccine (FLU shot) Completed 08/20/2024, 08/13/2024, 08/13/2024, Additional history exists HPV (Gardasil) Vaccine Aged Out No lo nger eligible based on patient's age to complete this topic Hepatitis B Vaccine Aged Out No longe r eligible based on patient's age to complete this topic MENINGOCOCCAL (MENACTRA/MENVEO) Aged Out No longer eligible based on patient's age to complete this topic documented as of this encounter Medical Devices Not on filedocumented as of this encounter Visit Diagnoses Diagnosis DM type 2 with diabetic peripheral neuropathy (HCC)- Primary Type II or unspecified type diabetes mellitus with neurological manifestations, not stated as uncontrolled Onychomycosis Dermatophytosis of nail Pain in toes of both feet documented in this encounter Advance Directives * Full Code (Latest Code Status on File) Date Activated Date Inactivated Comments 01/21/2011 3:11 PM 01/24/2011 6:52 PM This order re flects the patients wishes and were consensually agreed upon. Question Answer Comments Discussion of Advance Directives occurred with: Patient Does the patient have a Living Will? No Does the patient have Health Care Power of Attor kelvin? No * Full Code Date Activated Date Inactivated Comments 01/11/2009 12:37 PM 01/13/2009 9:54 PM Care Teams Dermatology Sales Representative Relationship Specialty Start Date End Date Nicolás Benedict MD [address] [place] [address] PCP - General Family Medicine 08/18/23 documented as of this encounter
--- OUTSIDE RECORDS SUMMARY | 2025-01-08 09:08 | External Medical Summary ---
Author Name Unknown Address Unknown Organization K01:[facility] [place] [address] [place] [address] Laboratory Report Ordering Provider Test Date Status VEDA ACHARYAUJA 12/13/2024 13:36:43 Final Observation Date Value Abnormality Reference (Units ) Status Alpha-Fetoprotein 12/13/2024 13:36:43 5.2 0. 0-8.3 (ng/mL) Final Performing Location [facility] - [address] [place] [address]
--- OUTSIDE RECORDS SUMMARY | 2025-01-08 09:08 | External Medical Summary | Summary of Care ---
Author Name Unknown Organization [facility] Address [address] [place] [address] Phone [phone] Care Team Providers Care Machine Iii Coremaker Name Role Phone Nicolás Benedict MD Primary Care Provider [phone] Encounter Details Date Type Department Care Team (Late st Contact Info) Description 12/08/2024 Population Health External Data Unspecified Department Allergies Active Allergy Reactions Criticality Noted Date Comments Atorvastatin Muscle pain 04/17/2017 Doxycycline Other (Please comment) Medium 09/03/2015 Body aches Gabapentin 05/15/2023 Marston off Iodinated Contrast Media Low 10/26/2018 Other reaction(s): RASH Latex Rash Low 10/26/2018 Metformin 10/04/2014 Severe diarrhea Morphine Medium 04/17/2017 Other reaction(s): RASH AND SWELLING Morphine And Codeine Rash 12/13/2008 Red blotches Oxycodone 08/18/2023 Other Reaction(s): GI UPSET Percocet Nausea/vomiting 11/01/1998 GI upset - N/V Simvastatin Muscle pain 04/17/2017 documented as of this encounter (statuses as of 12/08/2024) Medications ASPIRIN 81 MG PO TABS 1 [...] Breath or Wheezing. 18 g 2 01/27/20 Active Fluticasone Propionate 50 MCG/ACT Nasal Suspension (Flonase)Indicatio ns:Acute nasopharyngitis INSTILL TWO SPRAY IN EACH NOSTRIL EVERY DAY 52 g 01/27/20 Active Misc. DevicesIndications :Onychomycosis,Lef t foot pain Dispense one pair diabetic shoes, extra depth with 3 pair pre-fabricated accommodative inserts. Diagnosis: Type II DM, Pain in feet 1 Each 01/27/20 Active Mineral Oil OilIndications:Hea lthcare maintenance as needed 1000 mL 01/27/20 Active Multi-Vitamin Oral TabletIndications: Healthcare maintenance Take 1 Tablet by mouth in the morning. 90 Tablet 01/27/20 Active Vitamin C 500 MG Oral Tablet (Ascorbic Acid)Indications:H ealthcare maintenance Take 1 Tablet by mouth in the morning. 90 Tablet 01/27/20 Active Apixaban 5 MG Oral Tablet (Eliquis)Indicatio ns:Typical atrial flutter (HCC),Chronic atrial fibrillation (HCC),S/P angioplasty with stent Take 1 Tablet by mouth in the morning and 1 Tablet before bedtime. 180 Tablet 03/02/20 Active Cetirizine HCl 10 MG Oral Tablet (ZyrTEC)Indication s:Allergic rhinitis Take 1 Tablet by mouth in the morning. 90 Tablet 03/02/20 Active Cyanocobalamin 1000 MCG Oral Tablet (Cyanocobalamin)In dications:Healthca re maintenance Take 1 Tablet by mouth in the morning. 90 Tablet 03/02/20 Active NovoLOG FlexPen 100 UNIT/ML Subcutaneous Solution Pen-injectorIndica tions:Type 2 diabetes mellitus with hemoglobin A1c goal of less than 7.0% ([facility]) inject subcutaneously UP TO 30 UNITS WITH 3 MEALS DAILY 18 mL 03/02/20 Active OneTouch Delica Lancets 33GIndications:Typ e 2 diabetes mellitus with hemoglobin A1c goal of less than 7.0% ([facility]) Use 1-2 /day for Type II diabetes- DX:E11.9 100 Each 11 03/02/20 Active OneTouch Verio In Vitro Strip (Glucose Blood)Indications: Type 2 diabetes mellitus with hemoglobin A1c goal of less than 7.0% ([facility]) Test glucose 5-6 times dailyDiagnosis code: E11.9 600 Strip 1 03/02/20 Active Rosuvastatin Calcium 40 MG Oral Tablet (Crestor)Indicatio ns:Dyslipidemia, goal LDL below 70 Take 1 Tablet by mouth in the morning. 90 Tablet 3 03/02/20 23 Active Calcium Carbonate Antacid 500 MG Oral Tablet ChewableIndication s:Hypokalemia Take 1 Tablet by mouth in the morning and 1 Tablet before bedtime. 180 Tablet 3 03/24/20 23 Active Probiotic Daily Oral Capsule Take 1 Capsule by mouth in the morning. Active Toujeo SoloStar 300 UNIT/ML Subcutaneous Solution Pen-injector (Insulin Glargine (1 Unit Dial)) Inject 74 Units under the skin daily at noon. Active Clobetasol Propionate 0.05 % External SolutionIndication s:Psoriasis Apply topically to affected area 2 times a day. To affected area for up to two weeks. 50 mL 1 4 2:43 PM EST 12/03/19 24 Active [...] subcutaneous insulin administration 3 Each 3 03/10/20 24 Active Empagliflozin 25 MG Oral Tablet (Jardiance) Take 1 Tablet by mouth in the morning. Active traMADol HCl 25 MG Oral Tablet 06/11/20 24 Active Magnesium Oxide 400 MG Oral CapsuleIndications :Healthcare maintenance Take 1 Capsule by mouth in the morning. 90 Capsule 3 07/27/20 Active Omeprazole 40 MG Oral Capsule Delayed Release (PriLOSEC)Indicati ons:Esophageal reflux Take 1 Capsule by mouth in the morning. 1 hour before the first meal of the day.. 90 Capsule 3 07/27/20 Active Potassium Chloride ER 10 MEQ Oral [...] Tablet before bedtime. 90 Tablet 3 10/10/20 Active Additional Information Patient taking differently:500 mg OralDAILY PRN, Reported on 10/19/2024 Azithromycin 250 MG Oral Tablet (Zithromax Z-Nick) Take two tablets by mouth on first day, then 1 tablet daily until gone 6 Tablet 10/11/20 Active documented as of this encounter (statuses as of 12/08/2024) Active Problems Problem Noted Date Diagnosed Date [...] myelopathy 09/24 Coronary artery disease invo lving douglas coronary artery of douglas heart without angina pectoris 07/15/2014 Restless legs syndrome 12/19/2009 Overview (10/02/2010): 09/2010 - controlled on requip S/P ablation of atrial fibrillation 08/21/2009 S/P angioplasty with stent 09/05/2008 IFRAH treated with BiPAP 10/26/2002 Overview (12/29/2019): AHP documented as of this encounter (statuses as of 12/08/2024) Resolved Problems Problem Noted Date Diagnosed Date [...] mastoid 01/15/2015 10/29/2018 Overview (01/15/2015): Left Petrous [place] Atrial fibrillation 07/15/2014 05/02/20 19 Rectal bleeding 07/15/2014 09/30/2023 Diverticulosis of colon 07/15/201408/16 Metabolon Quantose IR Resear Study*[id number] 06/12/2014 10/19/2014 Overview (06/12/2014): METABOLON QUANTOSE IR STUDY. PROJECT: #[id number], FRANCHISE SALES DIRECTOR: Usama Esteves MD/ Facundo Krause MD. SUMMARY: The Use of a Novel Insulin Resistance Test as a Monitoring Indicator of Glycemic Control in Prediabetics and Diabetics treated with metformin combined with lifestyle intervention. 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 Inguinal hernia, left 03/24/20142016 CHR MYCOT OTITIS EXTERNA, IMPROVED 09/03/2011 12/11/2017 Subjective tinnitus 07/18/2011 08/31/20 17 Other specified forms of hearing loss 07/18/2011 08/31/2017 Chronic otitis externa 07/18/201108/31 Foreign body in ear 07/18/2011 05/05/20 17 Chronic mycotic otitis externa 07/18/2011 08/31/2017 Other chronic sinusitis 07/18/201108/16 Pericardial effusion 05/27/2011 017 Overview (05/27/2011): Smal circumferential pericardial effusion noted by echo 01/2011 [employer] Other*[id number] 03/04/2011 03/14/2014 Overview (03/04/2011): PROJECT: #[id number], SPONSOR: Yobani, PI: Usama Esteves MD SUMMARY: [...] encounter can be closed. CONTACT: Atif Garcia, Virology Teacher Hypersomnia 10/02/2010 10/29/2018 Chronic rhinitis 05/01/2010 09/30/2023 COPD, mild 04/05/2010 05/02/2019 Overview (03/15/2013): 03/2010- Mild to moderate obstructive lung disease. Refusing maintenance inhalers. PFT 04/10/2011 @ Dyslipidemia, goal LDL below 70 10/25/2009 09/30/2023 Overview (10/25/2009): Per Lipid Taxonomy. 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 06/05/2008 [...] as of this encounter (statuses as of 12/08/2024) Immunizations Name Administration Dates Next Due COVID-19 mRNA, LNP-s, No Pre serve, 2-Dose Series (Net Orange) 09/27/2021,02/01/2021,01/11/2021 COVID-19, LNP-s, No Preserve , Jhonathan-sucrose, Ages 12+ (Pfizer) 08/20/2024,03/13/2022 Covid-19, Mrna, Lnp-s, Pf, B ivalent, 30 Mcg, IM, 12 yrs and above (Net Orange) 12/01/2022 H1N1 2009 Influenza, IM 12/24/2009 Pneumococcal [...] Start Date 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 Not on file Not on file Not on file documented as of this encounter Plan of Treatment Upcoming Encounters Date Type Department Care Team (Late st Contact Info) Description 12/13/2024 1:00 PM EST Office Visit Hepatology, [facility] [address] [facility] [place] [address] Jayda Rodriguez MD [address] [place] [address] 01/13/2025 1:30 PM EST Office Visit Cardiology, [facility] [address] [facility] [place] [address] Talon Diaz PA-C [facility] [address] 03/15/2025 11:40 AM EDT Office Visit Podiatry [facility] [address] [facility] [place] [phone] Zeenat Palacio, DPM [address] [facility] [place] [address] 04/12/2025 11:40 AM EDT Office Visit Family Practice [facility] [address] [facility] [place] [address] Nicolás Benedict MD [address] [facility] [place] [address] 10/18/2025 3:30 PM EST Office Visit Cardiology, [facility] [address] [facility] [place] [address] Quin Gamino IV, MD [address] [place] [address] Health Maintenance Due Date Last Done Comments Cologuard 1996 Sigmoidoscopy 1996 Fecal Occult Blood Test 12/18/2002 12/18/2001 Zoster Vaccines (2 of 3) 06/12/2017 04/17/2017 Adult Wellness Visit 09/09/2022 09/09/2021 Diabetic Foot Exam 12/23/2023 12/23/2022, 1 01/04/2019, 10/29/2018, Additional history exists Depression Screening 03/24/2024 03/24/2023 HbA1c 05/01/2025 10/31/2024, 09/0 02/2024, 01/08/2024, Additional history exists GFR 07/20/2025 07/20/2024, 12/18, 11/12/2023, Additional history exists Diabetic Eye Exam 08/12/2025 08/12/2024, , 06/29/2023, Additional history exists Albumin/Creatinine Ratio 10/31/2025 024, 07/20/2024, 08/29/2022, Additional history exists DTap/Tdap [...] Not on filedocumented as of this encounter Advance Directives * Full Code [...] 12:37 PM 01/13/2009 9:54 PM Care Teams Machine Iii Coremaker Relationship Specialty Start Date End Date Nicolás Benedict MD [address] [address] [address] PCP - General Family Medicine 08/18/23 documented as of this encounter
--- OUTSIDE RECORDS SUMMARY | 2025-01-08 09:08 | External Medical Summary ---
Author Name Unknown Address Unknown Organization K01:[facility] - [address] [place] [address] Laboratory Report Ordering Provider Test Date Status VEDA ACHARYAUJA 12/13/2024 13:36:43 Final Observation Date Value Abnormality Reference (Units ) Status Hep A IgM 12/13/2024 13:36:43 Negative Negative Final Hep B Core IgM 12/13/2024 13:36:43 Negative Negat gayla Final Hep B surface Ag 12/13/2024 13:36:43 Negative Neg ative Final Hep C Ab 12/13/2024 13:36:43 Negative Negative Final Performing Location [facility] - [address] [place] [address]
--- OUTSIDE RECORDS SUMMARY | 2025-01-08 09:08 | External Medical Summary ---
Author Name Unknown Address Unknown Organization K01:[facility] - [address] [place] [address] Laboratory Report Ordering Provider Test Date Status ELIAS ACHARYA 12/13/2024 13:36:43 Final Observation Date Value Abnormality Reference (Units ) Status Ferritin 12/13/2024 13:36:43 236 30-400 (ng /mL) Final Performing Location [facility] - [address] [place] [address]
--- OUTSIDE RECORDS SUMMARY | 2025-01-08 09:08 | External Medical Summary ---
Author Name Unknown Address Unknown Organization K01:LAB[facility]ATORY [facility] [place] - [address] [place] [address] Laboratory Report Ordering Provider Test Date Status ELIAS ACHARYA 12/13/2024 13:36:43 Final Observation Date Value Abnormality Reference (Units ) Status Iron 12/13/2024 13:36:43 123 45-176 (ug /dL) Final Iron-binding capacity 12/13/2024 13:36:43 362 250-425 (ug/dL) Final Transferrin Sat % 12/13/2024 13:36:43 34 15 -55 (%) Final Performing Location LABORATORY [facility] [place] - [address] [place] [address]
--- OUTSIDE RECORDS SUMMARY | 2025-01-08 09:08 | External Medical Summary ---
Author Name Unknown Address Unknown Organization K0G:[facility] [place] [facility] - [address] [place] [address] Laboratory Report Ordering Provider Test Date Status VEDA ACHARYAUJA 12/13/2024 13:36:43 Final Warfarin Therapy
INR: 2 .0-3.0 conventional anticoagulation
INR: 2.5- 3.5 high intensity anticoagulation Observation Date Value Abnormality Reference (Units ) Status PT 12/13/2024 13:36:43 14.7 11.6-15.2 (seconds) Final INR 12/13/2024 13:36:43 1.1 0.8-1.2 Final Performing Location [facility] - [address] [place] [address]
--- OUTSIDE RECORDS SUMMARY | 2025-01-08 09:08 | External Medical Summary ---
Author Name Unknown Address Unknown Organization K0G:[facility] - [address] [place] [address] Laboratory Report Ordering Provider Test Date Status ELIAS ACHARYA 12/13/2024 13:36:43 Final Observation Date Value Abnormality Reference (Units ) Status BUN 12/13/2024 13:36:43 14 6-20 (mg/dL) Final Creatinine 12/13/2024 13:36:43 1.0 0.6-1.2 (mg/dL) Final Glomerular filtration rate/1.73 sq M.predicted [Volume Rate/Area] in Serum, Plasma or Blood by Creatinine-based formula (CKD-EPI) 12/13/2024 13:36:43 76 >=60 (mL/min) Final eGFR is calculated based on the CKD-EPI 2020 equation. Sodium 12/13/2024 13:36:43 140 135-146 (m mol/L) Final Potassium 12/13/2024 13:36:43 4.7 3.5-5.1 (m mol/L) Final Cl 12/13/2024 13:36:43 103 98-107 (mm ol/L) Final CO2 12/13/2024 13:36:43 26 22-32 (mmo l/L) Final Anion gap 12/13/2024 13:36:43 11 7-15 (mmol /L) Final Glucose 12/13/2024 13:36:43 114 70-120 (mg /dL) Final Albumin 12/13/2024 13:36:43 4.8 3.8-5.0 (g /dL) Final AST (Aspartate aminotransferase) 12/13/2024 13:36:43 28 10-50 (U/L) Final Alk Phos 12/13/2024 13:36:43 105 35-130 (U/ L) Final Bilirubin, Total 12/13/2024 13:36:43 0.5 <=1 .2 (mg/dL) Final Calcium 12/13/2024 13:36:43 10.2 8.4-10.2 ( mg/dL) Final Protein 12/13/2024 13:36:43 7.4 6.0-8.3 (g /dL) Final ALT (Alanine aminotransferase) 12/13/2024 13:36:43 38 10-50 (U/L) Final Performing Location [facility]ORY [place] [facility] - [address] [facility] [address]
--- OUTSIDE RECORDS SUMMARY | 2025-01-08 09:08 | External Medical Summary ---
Author Name Unknown Address Unknown Organization K0G:[facility] - [address] [place] [address] Laboratory Report Ordering Provider Test Date Status ELIAS ACHARYA 12/13/2024 13:36:43 Final Observation Date Value Abnormality Reference (Units ) Status WBC, Total 12/13/2024 13:36:43 5.72 4.00-10.8 0 (K/uL) Final RBC 12/13/2024 13:36:43 5.51 4.50-5.25 (M/uL) Final Hemoglobin 12/13/2024 13:36:43 17.5 Above high normal 1 4.0-16.8 (g/dL) Final HCT 12/13/2024 13:36:43 51.7 Above high normal 40 .0-48.4 (%) Final MCV 12/13/2024 13:36:43 93.8 82.0-99.5 (fL) Final MCH 12/13/2024 13:36:43 31.8 27.0-34.0 (pg) Final MCHC 12/13/2024 13:36:43 33.8 32.0-36.0 (g/dL) Final RDW 12/13/2024 13:36:43 13.9 11.5-15.5 (%) Final Platelets 12/13/2024 13:36:43 132 Below low normal 140 -400 (K/uL) Final MPV 12/13/2024 13:36:43 11.9 6.6-11.1 ( fL) Final Performing Location [facility] - [address] [place] [address]
--- NOTE | 2025-01-08 09:10 | Emergency Department Note ---
Impression & Plan SBO (small bowel obstruction) Admission ED Provider Note HPI: History obtained from patient. The patient is a 74-year-old gentleman with history of atrial fibrillation, currently on Eliquis, history of small bowel obstruction, presents the emergency department with a chief complaint of nausea and vomiting. Patient states that his symptoms began last night at around 11 PM. Patient states that his emesis was dark in color and states it looked like "fecal material". On arrival here to the ED the patient is tachycardic but otherwise hemodynamically stable, he is saturating well on room air, he is afebrile on arrival. ROS: - Per HPI Differential Diagnosis: Viral gastroenteritis, influenza A, COVID-19, upper GI bleed, acute pancreatitis, peptic ulcer disease, small bowel obstruction, perforated viscus, amongst other potential pathologies. *Outpatient medications and allergy history reviewed. PE: General: Alert HEENT: Normocephalic, trachea midline Eyes: Extraocular eye movement is intact, no scleral erythema Pulmonary: Clear to auscultation bilaterally, no wheezing Cardio: Tachycardic rate with a regular rhythm GI: Mild tenderness to palpation diffusely in the abdomen, there is mild distention, no guarding or rigidity : No suprapubic tenderness MSK: No evidence of trauma or malformation of the extremities, no edema Skin: No evidence of rash Neuro: Alert, no focal deficits Psychiatric: Cooperative INDEPENDENT INTERPRETATIONS: equipment monitor phototypesetting: (As interpreted by myself): - An order was placed for continuous cardiac monitoring - Patient was noted to be in atrial fibrillation with a rate of 142 EKG: (As interpreted by myself): Rate: 148 Rhythm: Atrial flutter with 2 1 AV conduction Intervals: Within normal limits ST changes: No ST elevation Time: 0912 Interventions provided in ED: -IV fluid bolus, IV morphine, IV Zofran Medical Decision Making: IV was established and lab work obtained, patient was placed on property assessment monitor. Patient was noted to be in atrial fibrillation with rates in the 140s, he states he did not take his morning medications including his metoprolol. Given that his blood pressure was stable he was given IV fluid bolus as well as IV diltiazem and IV metoprolol. His heart rate did downtrend into the low 100s following this. Blood pressure remained stable. Lab work shows a leukocytosis of 17.8, hemoglobin is slightly elevated at 18.1, platelet count is normal, CMP does not show any evidence of any critical findings, no evidence of any acute kidney injury. Troponin is negative. Viral panel testing is negative. CT imaging of the abdomen pelvis was obtained that does show evidence of a partial small bowel obstruction. On my reassessment the patient appears improved from previous, he states he does have a history of small bowel obstruction secondary to adhesions from multiple abdominal surgeries in the past including a cholecystectomy, and appendectomy, and hernia repair. At this time I do feel he would benefit from overnight observation. Patient was placed on maintenance fluid. I discussed the patient's presentation with the on-call hospitalist, Dr. Hardin, the patient was placed for admission in stable condition. Consultants/Discussions held with other healthcare providers: -Hospitalist, Dr. Foster Disposition discussion held by myself with: -Patient * CRITICAL CARE TIME: ( 43 ) minutes -Stabilization of patient with tachyarrhythmia/atrial flutter requiring IV medications for rate control, type II at the bedside, interpretation of diagnostic studies, discussion with other physicians and arrangement of admission for partial small bowel obstruction. Diagnosis: 1. Small bowel obstruction, acute 2. Nausea and vomiting, acute 3. Leukocytosis, acute 4. Atrial flutter, acute Disposition: Admission Talon Maldonado DO Emergency Medicine Past Med/Surg History Problem List (Updated 01/08/25 @ 12:37 by Talon Maldonado DO) SBO (small bowel obstruction) (Acute) Paroxysmal atrial fibrillation with rapid ventricular response Partial small bowel obstruction Fatty liver disease, nonalcoholic Atrial flutter High serum chloride (Acute) Back pain (Acute) Acute flank pain (Acute) Blood blister Chest pain (Chronic) IFRAH on CPAP (Chronic 09/26/14) Myalgia (Acute) Chest pain (Acute) A-fib (Acute) H/O prior ablation treatment (Acute) Stented coronary artery (Acute) Atrial fibrillation with RVR (Acute) Flu-like symptoms (Acute) Encounter for pre-operative examination Family history of polyps in the colon Type 2 diabetes mellitus with insulin therapy Obesity (BMI 30-39.9) Diffuse abdominal pain (Acute) SBO (small bowel obstruction) (Acute) COVID-19 (Acute) Medical History Atrial fibrillation DX 2005 ? , follows with Dr. Diaz, HX 2 CARDIOVERSIONS CAD (coronary artery disease) (09/26/14) Chronic constipation Degenerative disc disease Depression no meds Diabetes mellitus, type 2 Diarrhea "comes and goes" Diverticular disease Elevated liver enzymes Excessive thirst ONGOING "IT'S BEEN FOREVER" NOTICE IT FIRST THING IN THE MORNING GERD (gastroesophageal reflux disease) Hiatal hernia History of anesthesia reaction PER PT WITH HEAVY ANESTHESIA GI MOTILITY SLOWS DOWN History of atrial flutter History of cardioversion x2--last one 09/26/2013 History of COVID-19 07/2022, home test and pcr test [facility]-admitted for 2 days; intestinal symptoms- given antiviral>resolved. History of dizziness RESOLVED History of ileus HTN (hypertension) (09/26/14) Hx of hemorrhoids "currently having a lot of bleeding from his hemorrhoids" Hyperlipidemia (09/26/14) Nausea and vomiting after administration of anesthetic agent On anticoagulant therapy on eliquis Osteoarthritis Partial small bowel obstruction (11/28/13) hx Sciatic nerve pain Sleep apnea BIPAP Tortuous colon BORN WITH Surgical History History of appendectomy History of cardiac cath 2008, [facility], x1 stentl; f/u dr diaz, s History of cardiac radiofrequency ablation x3-- for A-fib @ [facility] [place] History of cataract surgery bilat. History of cholecystectomy History of colonoscopy pt stated that he needs the "pediatric scope" History of esophagogastroduodenoscopy (EGD) History of eye surgery x2--bug removal and piece of tree History of heart artery stent 2007--[facility] History of liver biopsy d/t elevated liver functions--"was ok" History of tonsillectomy and adenoidectomy History of wisdom tooth extraction Hx of right inguinal hernia repair Family History Sister Breast cancer Colonic polyp Mother CHF (congestive heart failure) Father CHF (congestive heart failure) Aneurysm Other No family history of adverse response to anesthesia Past medical history not known due to adoption Social History Smoking Status: Never smoker 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); Do You Dip or Chew Tobacco: No; Hx Alcohol Use: Yes Alcohol type: beer Hx Substance Use: No Preferred Language: Armenian Communication Ability: Effective Mathematics Technician Required: No Beliefs That Will Affect Care: None marital status: Current Living Situation: Spouse Current Living Situation Comment: with , multiple story house Feels Safe at Home: Yes Assistive Devices: Cane and Walker Allergies Allergies Allergy/AdvReac Type Severity Reaction Status Date / Time doxycycline Allergy Intermediate Rash Verified 01/08/25 10:51 Iodinated Contrast Media Allergy Intermediate RASH Verified 01/08/25 10:51 latex Allergy Intermediate RASH Verified 01/08/25 10:51 morphine Allergy Intermediate RASH AND Verified 01/08/25 10:51 SWELLING acetaminophen [From Percocet] Allergy Unknown Unknown - Unverified 01/08/25 10:51 On file / [facility] Pharmacy atorvastatin AdvReac Intermediate Muscle Pain Verified 01/08/25 10:51 Influenza Virus Vaccines AdvReac Intermediate SICK FOR 2 Verified 01/08/25 11:12 WEEKS AFTERWARD metformin AdvReac Intermediate Diarrhea, Verified 01/08/25 10:51 ABDOMINAL PAIN oxycodone AdvReac Intermediate GI UPSET Verified 01/08/25 10:51 simvastatin AdvReac Intermediate Muscle Pain Verified 01/08/25 10:51 Home Meds Home Medications Medication Instructions Recorded Confirmed apixaban 5 mg tablet 5 mg PO BID 10/26/18 01/08/25 aspirin 81 mg tablet,delayed 81 mg PO HS 10/26/18 01/08/25 release (Ecotrin Low Strength) cetirizine 10 mg tablet (Zyrtec) 10 mg PO HS 10/26/18 01/08/25 fluticasone propionate 50 2 spray intranasal DAILY 10/26/18 01/08/25 mcg/actuation nasal spray,suspension (Flonase Allergy Relief) rosuvastatin 40 mg tablet 40 mg PO HS 10/26/18 01/08/25 ascorbic acid (vitamin C) 500 mg 500 mg PO QAM 02/18/21 01/08/25 capsule cyanocobalamin (vitamin B-12) 1,000 mcg sublingual QAM 02/18/21 01/08/25 1,000 mcg sublingual tablet metoprolol succinate 50 mg 25 mg PO BID 02/18/22 01/08/25 tablet,extended release 24 hr docusate sodium 100 mg capsule 100 mg PO DAILY 05/24/24 01/08/25 acetaminophen 325 mg tablet 650 mg PO BID PRN Pain 06/09/24 01/08/25 (Tylenol) clobetasol 0.05 % scalp solution 1 applic topical BID PRN SKIN 06/09/24 01/08/25 IRRITATIONS empagliflozin 25 mg tablet 25 mg PO DAILY 06/09/24 01/08/25 (Jardiance) mineral oil (Mineral Oil Heavy 15 ml PO DAILY PRN Constipation 06/09/24 01/08/25 oral) potassium chloride 20 mEq 10 meq PO 4XWK 06/09/24 01/08/25 tablet,extended release triamcinolone acetonide 0.1 % 1 applic topical BID PRN SKIN 06/09/24 01/08/25 topical cream IRRITATIONS insulin aspart U-100 100 unit/mL 25 unit subcut TID PRN Before 11/22/24 01/08/25 (3 mL) subcutaneous pen (Novolog meals for diabetes FlexPen U-100 Insulin aspart) insulin glargine U-300 conc 300 40 unit subcut DAILY 11/22/24 01/08/25 unit/mL (1.5 mL) subcutaneous pen (Toujeo SoloStar U-300 Insulin) magnesium oxide 420 mg tablet 420 mg PO DAILY 01/08/25 01/08/25 omeprazole 40 mg capsule,delayed 40 mg PO DAILY 01/08/25 01/08/25 release urea 20 % topical cream 1 applic topical DAILY Dry skin 01/08/25 01/08/25 Previous Rx's Medication Instructions Recorded OneTouch Verio test strips (blood #400 ea 06/03/22 sugar diagnostic) lidocaine 4 % topical patch 1 patch topical DAILY #30 ea 06/11/24 Dexcom G7 Sensor (blood-glucose #9 ea 11/22/24 sensor) pen needle, diabetic 32 gauge x #500 ea 11/22/24" (BD Aisha 2nd Gen Pen Needle) Results & Data (ED) Vital Signs Vital Signs - 24 hr 01/08/25 09:08 01/08/25 09:14 01/08/25 09:32 Temperature 36.5 C Temperature Source Oral Pulse Rate 139 H 141 H Pulse Rate [Apical] Pulse Rate from SpO2 Sensor Pulse Rhythm Pulse Rhythm [Apical] Pulse Strength [Apical] Respiratory Rate 17 24 Respiratory Effort / Characteristics Non-Labored Spontaneous Respiratory Depth Normal Respiratory Pattern Regular Blood Pressure 130/105 H 130/105 H Blood Pressure [Left Arm] Blood Pressure Mean 113 110 Blood Pressure Mean [Left Arm] Blood Pressure Position Semi-fowlers Blood Pressure Position [Left Arm] Pulse Oximetry 93 93 Oxygen Delivery Method Room Air Room Air Sepsis Recent Fever Within 48 Hours No Sepsis New/Unexplained Change in Mental Status N/A Sepsis Action Taken by Nursing No Action Required 01/08/25 09:37 01/08/25 09:41 01/08/25 09:43 Temperature Temperature Source Pulse Rate 122 H 93 H Pulse Rate [Apical] 93 H Pulse Rate from SpO2 Sensor Pulse Rhythm Pulse Rhythm [Apical] Irregular Pulse Strength [Apical] Normal Respiratory Rate 22 24 Respiratory Effort / Characteristics Non-Labored Spontaneous Respiratory Depth Normal Respiratory Pattern Regular Blood Pressure 130/102 H 129/82 Blood Pressure [Left Arm] 129/82 Blood Pressure Mean 92 Blood Pressure Mean [Left Arm] 97 Blood Pressure Position Blood Pressure Position [Left Arm] Semi-fowlers Pulse Oximetry 93 Oxygen Delivery Method Room Air Sepsis Recent Fever Within 48 Hours Sepsis New/Unexplained Change in Mental Status Sepsis Action Taken by Nursing 01/08/25 09:43 01/08/25 09:48 01/08/25 10:02 Temperature Temperature Source Pulse Rate 93 H 149 H 106 H Pulse Rate [Apical] Pulse Rate from SpO2 Sensor 108 H Pulse Rhythm Irregular Pulse Rhythm [Apical] Pulse Strength [Apical] Respiratory Rate 24 24 Respiratory Effort / Characteristics Respiratory Depth Respiratory Pattern Blood Pressure 126/91 Blood Pressure [Left Arm] Blood Pressure Mean 102 Blood Pressure Mean [Left Arm] Blood Pressure Position Blood Pressure Position [Left Arm] Pulse Oximetry 93 94 Oxygen Delivery Method Room Air Room Air Sepsis Recent Fever Within 48 Hours Sepsis New/Unexplained Change in Mental Status Sepsis Action Taken by Nursing 01/08/25 10:50 01/08/25 11:42 01/08/25 11:46 Temperature Temperature Source Pulse Rate 107 H 120 H Pulse Rate [Apical] Pulse Rate from SpO2 Sensor Pulse Rhythm Pulse Rhythm [Apical] Pulse Strength [Apical] Respiratory Rate 22 24 Respiratory Effort / Characteristics Respiratory Depth Respiratory Pattern Blood Pressure 134/109 H Blood Pressure [Left Arm] Blood Pressure Mean 119 Blood Pressure Mean [Left Arm] Blood Pressure Position Blood Pressure Position [Left Arm] Pulse Oximetry 94 Oxygen Delivery Method Room Air Sepsis Recent Fever Within 48 Hours Sepsis New/Unexplained Change in Mental Status Sepsis Action Taken by Nursing 01/08/25 12:00 Temperature Temperature Source Pulse Rate Pulse Rate [Apical] 115 H Pulse Rate from SpO2 Sensor Pulse Rhythm Pulse Rhythm [Apical] Pulse Strength [Apical] Respiratory Rate 24 Respiratory Effort / Characteristics Respiratory Depth Respiratory Pattern Blood Pressure Blood Pressure [Left Arm] 129/104 H Blood Pressure Mean Blood Pressure Mean [Left Arm] 112 Blood Pressure Position Blood Pressure Position [Left Arm] Pulse Oximetry 94 Oxygen Delivery Method Sepsis Recent Fever Within 48 Hours Sepsis New/Unexplained Change in Mental Status Sepsis Action Taken by Nursing Laboratory Data 01/08/25 09:15 01/08/25 09:15 Lab Results 01/08/25 01/08/25 01/08/25 Range/Units 09:12 09:15 09:27 WBC 17.85 H (4.8-10.8) K/ul RBC 5.75 (4.70-6.10) M/uL Hgb 18.1 H (14.0-18.0) g/dl Hct 52.7 H (42.0-52.0) % MCV 91.7 (80.0-100.0) fL MCH 31.5 (25.0-34.0) pg MCHC 34.3 (32.0-36.0) g/dL RDW Std Deviation 47.8 H (36.4-46.3) fL RDW Coeff of Dominic 14.7 H (11.5-14.5) % Plt Count 155 (130-400) K/uL MPV 11.1 (9.4-12.4) fL Immature Gran % (Auto) 0.7 % Neut % (Auto) 87.3 % Lymph % (Auto) 3.6 % [place] % (Auto) 8.2 % Eos % (Auto) 0.0 % Baso % (Auto) 0.2 % Neut # (Auto) 15.58 H (1.40-6.50) K/uL Lymph # (Auto) 0.64 L (1.20-3.40) K/uL [place] # (Auto) 1.47 H (0.11-0.59) K/uL Eos # (Auto) 0.00 (0.00-0.50) K/uL Baso # (Auto) 0.04 (0.00-0.20) K/uL Immature Gran # (Auto) 0.12 (0.01-0.20) K/uL PT 13.0 H (9.0-12.0) Seconds INR 1.2 H (0.9-1.1) Sodium 141 (136-145) mmol/L Potassium 4.5 (3.5-5.1) mmol/L Chloride 103 (98-107) mmol/L Carbon Dioxide 23 (21-32) mmol/L Anion Gap 15 H (3-11) BUN 28 H (6-23) mg/dl Creatinine 1.19 (0.6-1.4) mg/dl Est Cr Clr Drug Dosing 69.8 ml/min eGFR 64.50 BUN/Creatinine Ratio 23.5 H (10-20) Glucose 250 H (70-99(Fasting)) mg/dl Calcium 10.1 (8.6-10.3) mg/dl Total Bilirubin 1.5 H (0.2-1.0) mg/dl AST 42 H (13-39) U/L ALT 51 (7-52) U/L Alkaline Phosphatase 104 (34-104) U/L Troponin I High Sens 5.8 (0-20) pg/ml Total Protein 8.0 (6.0-8.3) gm/dl Albumin 4.7 (3.4-5.0) gm/dl Globulin 3.3 (2.5-4.0) gm/dl Albumin/Globulin Ratio 1.4 (0.9-2) Lipase 3 L (11-82) U/L Adenovirus (PCR) Not Detected (NotDetected) B. pertussis DNA (PCR) Not Detected (NotDetected) B.parapertussis DNA PCR Not Detected (NotDetected) C. pneumoniae DNA (PCR) Not Detected (NotDetected) Coronavirus OC43 (PCR) Not Detected (NotDetected) Coronavirus HKU1 (PCR) Not Detected (NotDetected) Coronavirus 229E (PCR) Not Detected (NotDetected) SARS-CoV-2 (PCR) Not Detected (NotDetected) Coronavirus NL63 (PCR) Not Detected (NotDetected) Human Metapneumovir PCR Not Detected (NotDetected) Influenza Type A (PCR) Not Detected (NotDetected) Influenza Type B (PCR) Not Detected (NotDetected) M. pneumoniae (PCR) Not Detected (NotDetected) Parainfluenza 1 (PCR) Not Detected (NotDetected) Parainfluenza 2 (PCR) Not Detected (NotDetected) Parainfluenza 3 (PCR) Not Detected (NotDetected) Parainfluenza 4 (PCR) Not Detected (NotDetected) RSV (PCR) Not Detected (NotDetected) Entero/Rhino (PCR) Not Detected (NotDetected) Blood Type A Negative Antibody Screen NEGATIVE Administered Medications Sodium Chloride (Nss) 1,000 mls @ 150 mls/hr IV .Q6H40M ONE Stop: 01/08/25 17:38 Last Admin: 01/08/25 11:47 Dose: 150 mls/hr Documented By: Discontinued Medications Diltiazem HCl (Diltiazem Hcl 5 Mg/Ml 5 Ml Vial) 10 mg IV NOW STA Stop: 01/08/25 09:16 Last Admin: 01/08/25 09:20 Dose: 10 mg Documented By: Co-signed By: DERICK Diphenhydramine HCl (Diphenhydramine 50 Mg/Ml Vial) 50 mg IV ONE ONE Stop: 01/08/25 09:09 Last Admin: 01/08/25 09:24 Dose: 50 mg Documented By: Sodium Chloride (Nss) 1,000 mls @ 999 mls/hr IV .Q1H1M ONE Stop: 01/08/25 10:09 Last Infusion: 01/08/25 11:27 Dose: Infused Documented By: Admin: 01/08/25 09:24 Dose: 999 mls/hr Documented By: Ioversol (Optiray 320 100ml) 93 ml IV ONCE ONE Stop: 01/08/25 10:30 Last Admin: 01/08/25 10:30 Dose: 93 ml Documented By: AUGUSTO Methylprednisolone (Methylprednisolone 125 Mg/2 Ml Vial) 40 mg IV NOW ONE Stop: 01/08/25 09:09 Last Admin: 01/08/25 09:24 Dose: 40 mg Documented By: Metoprolol Tartrate (Metoprolol Tartrate 1 Mg/Ml Vial) 5 mg IV NOW STA Stop: 01/08/25 09:30 Last Admin: 01/08/25 09:37 Dose: 5 mg Documented By: Ondansetron HCl (Ondansetron Inj 2 Mg/Ml 2 Ml Vial) 4 mg IV NOW STA Stop: 01/08/25 11:37 Last Admin: 01/08/25 11:47 Dose: 4 mg Documented By: Imaging Data Radiologist's Impression: Abdomen/Pelvis CT 01/08/25 09:08 EXAM: CT Abdomen and Pelvis With Intravenous Contrast INDICATION: Abdominal pain. Black-colored emesis. TECHNIQUE: Axial computed tomography images of the abdomen and pelvis with intravenous contrast. Sagittal and coronal reformatted images were created and reviewed. This CT exam was performed using one or more of the following dose reduction techniques: automated exposure control, adjustment of the mA and/or kV according to patient size, and/or use of iterative reconstruction technique. CONTRAST: 93ml of Optiray 320 was administered intravenously. COMPARISON: 06/09/2024 FINDINGS: Limitations: None. Lung bases: Minimal dependent atelectasis in the lower lung zones. Pleural space: No visualized pleural effusion or pneumothorax. Heart: Stable cardiomegaly and dense coronary calcifications/stents. Minimal posterior pericardial thickening. Mediastinum: Mild fluid distention of the distal esophagus. ABDOMEN: Liver: No mass. Smooth contour. No ductal dilatation. Gallbladder and bile ducts: Cholecystectomy. No ductal dilation or stone noted. Pancreas: Atrophic pancreas. No inflammation or mass. Spleen: No significant abnormality noted. Adrenals: No significant abnormality noted. Kidneys and ureters: Normal enhancement. No mass, hydronephrosis or visualized stone. Stomach and bowel: The stomach is moderately distended with fluid. Multiple dilated proximal and mid small bowel loops present with transition point likely in the right lower quadrant but not distinctly defined. Air and stool noted in the redundant colon with multiple left colonic diverticula. No diverticulitis. PELVIS: Appendix: No findings to suggest acute appendicitis. Bladder: No filling defects to suggest mass or large stone. No inflammation. Reproductive: No abnormalities noted. ABDOMEN and PELVIS: Intraperitoneal space: No free air. No significant fluid collection. Bones/joints: Degenerative changes noted throughout the spine. No acute osseous abnormality seen. Soft tissues: No significant abnormality noted. Vasculature: There is mild atherosclerosis of the distal aorta and iliac arteries. No aneurysm or dissection. Lymph nodes: Stable shotty periportal nodes. No pathologically enlarged nodes. IMPRESSION: 1. Early or partial small bowel obstruction. Transition point not distinctly defined but likely right abdomen or lower quadrant. Consider adhesions. 2. Extensive colonic diverticulosis without diverticulitis. ACT 112: Negative or not required by law. Electronically signed by Herlinda Berry 01-08-2025 10:53 AM Chest X-Ray 01/08/25 11:31 EXAM: Radiograph of the Chest 1 View INDICATION: Sepsis TECHNIQUE: Frontal view of the chest. COMPARISON: 06/10/2024 FINDINGS: Lungs and pleural spaces: There is minimal atelectasis in the left lung base. No pleural effusion or pneumothorax. Heart: Stable large cardiac shadow. Mediastinum: Normal contour. Bones/joints: Degenerative changes noted throughout the spine. No acute osseous abnormality seen. Soft tissues: No abnormality noted. No radiopaque foreign body noted. Upper abdomen: No abnormality noted. IMPRESSION: There is minimal atelectasis in the left lung base. ACT 112: Negative or not required by law. Electronically signed by Herlinda Berry 01-08-2025 12:15 PM Discharge Plan Visit Data Chief Complaint: Illness ED Provider: Talon Maldonado Discharge Problem: SBO (small bowel obstruction) Forms Stand Alone Forms: [facility] [employer] Prescriptions Prescriptions: No Action (DME) OneTouch Verio test strips Strip See Dose Instructions .ROUTE .MEDSUPPLY Qty: 400 3RF Dose Instruction: As directed Rx Instructions: use 4 strips daily to test blood sugars cyanocobalamin (vitamin B-12) 1,000 mcg tablet, sublingual 1,000 mcg SL QAM Rx Instructions: Unable to verify OTC meds at this date/time. ascorbic acid (vitamin C) 500 mg capsule 500 mg PO QAM Rx Instructions: Unable to verify OTC meds at this date/time. metoprolol succinate 50 mg tablet extended release 24 hr 25 mg PO BID Rx Instructions: Last filled 10/04/24 x90 day supply (DME) pen needle, diabetic [BD Aisha 2nd Gen Pen Needle] 32 gauge x /32" needle See Rx Instructions .ROUTE .MEDSUPPLY Qty: 500 3RF Rx Instructions: use 5 x daily (DME) Dexcom G7 Sensor Device See Rx Instructions .Route Qty: 9 3RF Rx Instructions: change every 10 days apixaban 5 mg tablet 5 mg PO BID aspirin [Ecotrin Low Strength] 81 mg Tablet,Delayed Release (Dr/Ec) 81 mg PO HS Rx Instructions: Unable to verify OTC meds at this date/time. cetirizine [Zyrtec] 10 mg Tablet 10 mg PO HS Rx Instructions: Unable to verify OTC meds at this date/time. fluticasone propionate [Flonase Allergy Relief] 50 mcg/actuation [place],Suspension 2 spray Intranasal DAILY Patient Comments: 2 SPRAYS IN EACH NOSTRIL-uses most every day rosuvastatin 40 mg tablet 40 mg PO HS Rx Instructions: Last filled 07/28/24 x90 day supply docusate sodium 100 mg capsule 100 mg PO DAILY Patient Comments: takes 1 time daily every day Rx Instructions: Unable to verify OTC meds at this date/time. magnesium oxide 420 mg Tablet 420 mg PO DAILY urea 20 % Cream 1 applic TOPICAL DAILY Rx Instructions: Unable to verify OTC meds at this date/time. omeprazole 40 mg Capsule,Delayed Release(Dr/Ec) 40 mg PO DAILY mineral oil [Mineral Oil Heavy] Oil 15 ml PO DAILY PRN (Reason: Constipation) Rx Instructions: Unable to verify OTC meds at this date/time. acetaminophen [Tylenol] 325 mg Tablet 650 mg PO BID PRN (Reason: Pain) Rx Instructions: Unable to verify OTC meds at this date/time. triamcinolone acetonide 0.1 % Cream 1 applic TOPICAL BID PRN (Reason: SKIN IRRITATIONS) clobetasol 0.05 % solution 1 applic TOPICAL BID PRN (Reason: SKIN IRRITATIONS) Rx Instructions: DO NOT USE WITH TRIAMCINOLONE CREAM potassium chloride 20 mEq Tablet Extended Release 10 meq PO 4XWK Rx Instructions: Last filled 08/26/24 x90 day supply. TAKES SUN, TUES, THURS, & SAT. Jardiance 25 mg Tablet 25 mg PO DAILY lidocaine 4 % adhesive patch,medicated 1 patch topical DAILY Qty: 30 0RF Rx Instructions: may leave on for up to 12 hrs. Unable to verify OTC meds at this date/time. insulin aspart U-100 [Novolog FlexPen U-100 Insulin] 100 unit/mL (3 mL) insulin pen 25 unit subcut TID PRN (Reason: Before meals for diabetes) Rx Instructions: inject per sliding scale insulin glargine U-300 conc [Toujeo SoloStar U-300 Insulin] 300 unit/mL (1.5 mL) insulin pen 40 unit SUBCUT DAILY Rx Instructions: Last filled 10/03/24 x90 day supply Referrals Referrals: Nicolás Benedict MD [Primary Care Provider] -
[2025-01-08] MEDS: dilTIAZem HCl 5 MG/ML 5 ML VIAL IV STA (09:20)
[2025-01-08] MEDS: diphenhydrAMINE 50 MG/ML VIAL IV ONE (09:24)
[2025-01-08] MEDS: methylPREDNISolone 125 MG/2 ML VIAL IV ONE (09:24)
[2025-01-08] MEDS: SODIUM CHLORIDE 0.9% 1,000 ML IV ONE ×2 (09:24→11:47)
[2025-01-08 09:34] LABS: Basophils # (auto) 0.04 K/uL (0.00-0.20); Basophils % (auto) 0.2 %; Hematocrit (blood only) 52.7 % (42.0-52.0); Hemoglobin 18.1 g/dl (14.0-18.0); Immature Granulocytes # (auto) 0.12 K/uL (0.01-0.20); Immature Granulocytes % (auto) 0.7 %; Lymphocytes # (auto) 0.64 K/uL (1.20-3.40); Lymphocytes % (auto) 3.6 %; Mean Corpuscular Hemoglobin 31.5 pg (25.0-34.0); Mean Corpuscular Hgb Conc 34.3 g/dL (32.0-36.0); Mean Corpuscular Volume 91.7 fL (80.0-100.0); Mean Platelet Volume 11.1 fL (9.4-12.4); Monocytes # (auto) 1.47 K/uL (0.11-0.59); Monocytes % (auto) 8.2 %; Neutrophils # (auto) 15.58 K/uL (1.40-6.50); Neutrophils % (auto) 87.3 %; Platelet Count 155 K/uL (130-400); RDW Coefficient of Variation 14.7 % (11.5-14.5); RDW Standard Deviation 47.8 fL (36.4-46.3); Red Blood Count 5.75 M/uL (4.70-6.10); White Blood Count 17.85 K/ul (4.8-10.8)
[2025-01-08] MEDS: METOPROLOL TARTRATE 1 MG/ML VIAL IV STA (09:37)
[2025-01-08 09:47] LABS: Albumin Globulin Ratio 1.4 (0.9-2); Albumin Level 4.7 gm/dl (3.4-5.0); BUN Creatinine Ratio 23.5 (10-20); Bilirubin,Total 1.5 mg/dl (0.2-1.0); Calcium 10.1 mg/dl (8.6-10.3); Creatinine Clr Calc Pharmacy 69.8 ml/min; Globulin 3.3 gm/dl (2.5-4.0); Potassium 4.5 mmol/L (3.5-5.1)
[2025-01-08 09:54] LABS: Troponin I High Sensitivity 5.8 pg/ml (0-20)
[2025-01-08 10:00] LABS: INR 1.2 (0.9-1.1)
[2025-01-08] MEDS: OPTIRAY 320 100ml IV ONE (10:30)
--- NOTE | 2025-01-08 10:34 | Electrocardiogram Report ---
Test Reason : Blood Pressure : */* mmHG Vent. Rate : 148 BPM Atrial Rate : 296 BPM P-R Int : * ms QRS Dur : 82 ms QT Int : 312 ms P-R-T Axes : * 69 74 degrees QTcB Int : 489 ms Possible Atrial flutter with 2:1 A-V conduction Abnormal ECG When compared with ECG of 09-Jun-2024 18:12, ST no longer depressed in Inferior leads Confirmed by Zeus Mortensen ([id number]) on 01/08/2025 10:34:26 AM Referred By: REFERRED SELF Confirmed By: Zeus Mortensen
[2025-01-08 10:42] LABS: Adenovirus PCR Not Detected (NotDetected); Bordetella parapertussis PCR Not Detected (NotDetected); Bordetella pertussis PCR Not Detected (NotDetected); Chlamydia pneumoniae PCR Not Detected (NotDetected); Coronavirus 229E PCR Not Detected (NotDetected); Coronavirus CoV-2 (COVID19)PCR Not Detected (NotDetected); Coronavirus HKU1 PCR Not Detected (NotDetected); Coronavirus NL63 PCR Not Detected (NotDetected); Coronavirus OC43PCR Not Detected (NotDetected); Human Metapneumovirus PCR Not Detected (NotDetected); Influenza A PCR Not Detected (NotDetected); Influenza B PCR Not Detected (NotDetected); Mycoplasma pneumoniae PCR Not Detected (NotDetected); Parainfluenza Virus 1 PCR Not Detected (NotDetected); Parainfluenza Virus 2 PCR Not Detected (NotDetected); Parainfluenza Virus 3 PCR Not Detected (NotDetected); Parainfluenza Virus 4 PCR Not Detected (NotDetected); Respiratory Syncytial VirusPCR Not Detected (NotDetected); Rhinovirus/Enterovirus PCR Not Detected (NotDetected)
--- NOTE | 2025-01-08 10:54 | CT Scan Report ---
EXAM: CT Abdomen and Pelvis With Intravenous Contrast INDICATION: Abdominal pain. Black-colored emesis. TECHNIQUE: Axial computed tomography images of the abdomen and pelvis with intravenous contrast. Sagittal and coronal reformatted images were created and reviewed. This CT exam was performed using one or more of the following dose reduction techniques: automated exposure control, adjustment of the mA and/or kV according to patient size, and/or use of iterative reconstruction technique. CONTRAST: 93ml of Optiray 320 was administered intravenously. COMPARISON: 06/09/2024 FINDINGS: Limitations: None. Lung bases: Minimal dependent atelectasis in the lower lung zones. Pleural space: No visualized pleural effusion or pneumothorax. Heart: Stable cardiomegaly and dense coronary calcifications/stents. Minimal posterior pericardial thickening. Mediastinum: Mild fluid distention of the distal esophagus. ABDOMEN: Liver: No mass. Smooth contour. No ductal dilatation. Gallbladder and bile ducts: Cholecystectomy. No ductal dilation or stone noted. Pancreas: Atrophic pancreas. No inflammation or mass. Spleen: No significant abnormality noted. Adrenals: No significant abnormality noted. Kidneys and ureters: Normal enhancement. No mass, hydronephrosis or visualized stone. Stomach and bowel: The stomach is moderately distended with fluid. Multiple dilated proximal and mid small bowel loops present with transition point likely in the right lower quadrant but not distinctly defined. Air and stool noted in the redundant colon with multiple left colonic diverticula. No diverticulitis. PELVIS: Appendix: No findings to suggest acute appendicitis. Bladder: No filling defects to suggest mass or large stone. No inflammation. Reproductive: No abnormalities noted. ABDOMEN and PELVIS: Intraperitoneal space: No free air. No significant fluid collection. Bones/joints: Degenerative changes noted throughout the spine. No acute osseous abnormality seen. Soft tissues: No significant abnormality noted. Vasculature: There is mild atherosclerosis of the distal aorta and iliac arteries. No aneurysm or dissection. Lymph nodes: Stable shotty periportal nodes. No pathologically enlarged nodes. IMPRESSION: 1. Early or partial small bowel obstruction. Transition point not distinctly defined but likely right abdomen or lower quadrant. Consider adhesions. 2. Extensive colonic diverticulosis without diverticulitis. ACT 112: Negative or not required by law. Electronically signed by Herlinda Berry 01-08-2025 10:53 AM
[2025-01-08] MEDS: ONDANSETRON INJ 2 MG/ML 2 ML VIAL IV STA (11:47)
--- NOTE | 2025-01-08 12:11 | History & Physical Report ---
Date of Service January 08, 2025 Assessment & Plan (1) Partial small bowel obstruction: (2) Paroxysmal atrial fibrillation with rapid ventricular response: (3) Type 2 diabetes mellitus with insulin therapy: (4) IFRAH on CPAP: (5) Fatty liver disease, nonalcoholic: Plan Patient 74-year-old gentleman with known previous history of small bowel obstruction due to occasions, presents to the emergency room with acute onset nausea vomiting abdominal discomfort with imaging consistent with early/partial small bowel obstruction. Also patient in atrial fibrillation/flutter with rapid ventricular response Admit to the hospital to a monitored unit Bowel rest IV fluid resuscitation Discussed NG tube placement with the patient. He is agreeable if needed. Ice recommended that this may give him some relief from his burning and distention of his abdomen. NG tube to low intermittent suction order placed Patient does think he would be of take some small sips with meds Dose him with his usual metoprolol XL and Eliquis for rate control and secondary stroke prevention with for chronic anticoagulation Metoprolol IV as needed for additional rate control if needed or does not tolerate his oral meds Suspect leukocytosis is reactive due to the small bowel obstruction, at this ti me no evidence of bacterial infection, will continue to monitor and reassess need for any type of further intervention Check chest x-ray Monitor electrolytes and renal function Continue long-acting insulin, half dose due to the patient's n.p.o. status, add insulin sliding scale short acting monitoring glucose every 6 hours or as needed Check hemoglobin A1c History of Present Illness Chief Complaint: Nausea, vomiting, abdominal discomfort, generalized ill feeling Primary Care Provider: Nicolás Benedict MD Patient is a 74-year-old gentleman with known history of paroxysmal atrial fibrillation, coronary disease, diabetes and previous history of small bowel obstructions due to adhesions resulting from previous abdominal surgeries including appendectomy and cholecystectomy. Presents to the emergency department with above complaints. Reports that his has had a "the flu" and he feels like he is starting to have some of the similar symptoms. Yesterday started with some nausea and abdominal discomfort. Initially thought that it was the flu, however through the night started with some significant emesis and some the emesis appeared feculent due to his previous small bowel obstructions came to the emergency room for evaluation. In the emergency room had some leukocytosis. CAT scan of the abdomen showed developing/partial small bowel obstruction versus ileus. On telemetry monitoring is also noted that he was in atrial flutter with rapid ventricular response. He was referred to our service for further evaluation. Time of my evaluation patient was feeling a little bit better has not had any further emesis here in the ED, however he is complaining of some burning and discomfort of his abdomen. He does not really appreciate that he is in the atrial fibrillation. He has had multiple previous ablations and reports that he cannot sense it as much as he used to in the past. Has not taken any of his medications this morning. He admits to some chills but no definite fevers. No chest pain. No shortness of breath. No real cough or congestion. Just this sudden nausea vomiting abdominal discomfort and generalized malaise. Allergies Allergy/AdvReac Type Severity Reaction Status Date / Time doxycycline Allergy Intermediate Rash Verified 01/08/25 10:51 Iodinated Contrast Media Allergy Intermediate RASH Verified 01/08/25 10:51 latex Allergy Intermediate RASH Verified 01/08/25 10:51 morphine Allergy Intermediate RASH AND Verified 01/08/25 10:51 SWELLING acetaminophen [From Percocet] Allergy Unknown Unknown - Unverified 01/08/25 10:51 On file / [facility] Pharmacy atorvastatin AdvReac Intermediate Muscle Pain Verified 01/08/25 10:51 Influenza Virus Vaccines AdvReac Intermediate SICK FOR 2 Verified 01/08/25 11:12 WEEKS AFTERWARD metformin AdvReac Intermediate Diarrhea, Verified 01/08/25 10:51 ABDOMINAL PAIN oxycodone AdvReac Intermediate GI UPSET Verified 01/08/25 10:51 simvastatin AdvReac Intermediate Muscle Pain Verified 01/08/25 10:51 Home Medications Medication Instructions Recorded Confirmed Type apixaban 5 mg tablet 5 mg PO BID 10/26/18 01/08/25 History aspirin 81 mg tablet,delayed 81 mg PO HS 10/26/18 01/08/25 History release (Ecotrin Low Strength) cetirizine 10 mg tablet (Zyrtec) 10 mg PO HS 10/26/18 01/08/25 History fluticasone propionate 50 2 spray intranasal DAILY 10/26/18 01/08/25 History mcg/actuation nasal spray,suspension (Flonase Allergy Relief) rosuvastatin 40 mg tablet 40 mg PO HS 10/26/18 01/08/25 History ascorbic acid (vitamin C) 500 mg 500 mg PO QAM 02/18/21 01/08/25 History capsule cyanocobalamin (vitamin B-12) 1,000 mcg sublingual QAM 02/18/21 01/08/25 History 1,000 mcg sublingual tablet metoprolol succinate 50 mg 25 mg PO BID 02/18/22 01/08/25 History tablet,extended release 24 hr OneTouch Verio test strips (blood #400 ea 06/03/22 11/22/24 Rx sugar diagnostic) docusate sodium 100 mg capsule 100 mg PO DAILY 05/24/24 01/08/25 History acetaminophen 325 mg tablet 650 mg PO BID PRN Pain 06/09/24 01/08/25 History (Tylenol) clobetasol 0.05 % scalp solution 1 applic topical BID PRN SKIN 06/09/24 01/08/25 History IRRITATIONS empagliflozin 25 mg tablet 25 mg PO DAILY 06/09/24 01/08/25 History (Jardiance) mineral oil (Mineral Oil Heavy 15 ml PO DAILY PRN Constipation 06/09/24 01/08/25 History oral) potassium chloride 20 mEq 10 meq PO 4XWK 06/09/24 01/08/25 History tablet,extended release triamcinolone acetonide 0.1 % 1 applic topical BID PRN SKIN 06/09/24 01/08/25 History topical cream IRRITATIONS lidocaine 4 % topical patch 1 patch topical DAILY #30 ea 06/11/24 01/08/25 Rx Dexcom G7 Sensor (blood-glucose #9 ea 11/22/24 11/22/24 Rx sensor) insulin aspart U-100 100 unit/mL 25 unit subcut TID PRN Before 11/22/24 01/08/25 History (3 mL) subcutaneous pen (Novolog meals for diabetes FlexPen U-100 Insulin aspart) insulin glargine U-300 conc 300 40 unit subcut DAILY 11/22/24 01/08/25 History unit/mL (1.5 mL) subcutaneous pen (Toujeo SoloStar U-300 Insulin) pen needle, diabetic 32 gauge x #500 ea 11/22/24 11/22/24 Rx 5/32" (BD Asiha 2nd Gen Pen Needle) magnesium oxide 420 mg tablet 420 mg PO DAILY 01/08/25 01/08/25 History omeprazole 40 mg capsule,delayed 40 mg PO DAILY 01/08/25 01/08/25 History release urea 20 % topical cream 1 applic topical DAILY Dry skin 01/08/25 01/08/25 History Past Med/Surg History Problem List (Updated 01/08/25 @ 12:08 by Billy Hardin, ) Paroxysmal atrial fibrillation with rapid ventricular response Partial small bowel obstruction Fatty liver disease, nonalcoholic Atrial flutter High serum chloride (Acute) Back pain (Acute) Acute flank pain (Acute) Blood blister Chest pain (Chronic) IFRAH on CPAP (Chronic 09/26/14) Myalgia (Acute) Chest pain (Acute) A-fib (Acute) H/O prior ablation treatment (Acute) Stented coronary artery (Acute) Atrial fibrillation with RVR (Acute) Flu-like symptoms (Acute) Encounter for pre-operative examination Family history of polyps in the colon Type 2 diabetes mellitus with insulin therapy Obesity (BMI 30-39.9) Diffuse abdominal pain (Acute) SBO (small bowel obstruction) (Acute) COVID-19 (Acute) Medical History Atrial fibrillation DX 2005 ? , follows with Dr. Diaz, HX 2 CARDIOVERSIONS CAD (coronary artery disease) (09/26/14) Chronic constipation Degenerative disc disease Depression no meds Diabetes mellitus, type 2 Diarrhea "comes and goes" Diverticular disease Elevated liver enzymes Excessive thirst ONGOING "IT'S BEEN FOREVER" NOTICE IT FIRST THING IN THE MORNING GERD (gastroesophageal reflux disease) Hiatal hernia History of anesthesia reaction PER PT WITH HEAVY ANESTHESIA GI MOTILITY SLOWS DOWN History of atrial flutter History of cardioversion x2--last one 09/26/2013 History of COVID-19 07/2022, home test and pcr test [facility]-admitted for 2 days; intestinal symptoms- given antiviral>resolved. History of dizziness RESOLVED History of ileus HTN (hypertension) (09/26/14) Hx of hemorrhoids "currently having a lot of bleeding from his hemorrhoids" Hyperlipidemia (09/26/14) Nausea and vomiting after administration of anesthetic agent On anticoagulant therapy on eliquis Osteoarthritis Partial small bowel obstruction (11/28/13) hx Sciatic nerve pain Sleep apnea BIPAP Tortuous colon BORN WITH Surgical History History of appendectomy History of cardiac cath 2007, [facility], x1 stentl; f/u homar reid History of cardiac radiofrequency ablation x3-- [place] [facility] [place] History of cataract surgery bilat. History of cholecystectomy History of colonoscopy pt stated that he needs the "pediatric scope" History of esophagogastroduodenoscopy (EGD) History of eye surgery x2--bug removal and piece of tree History of heart artery stent 2007--[facility] History of liver biopsy d/t elevated liver functions--"was ok" History of tonsillectomy and adenoidectomy History of wisdom tooth extraction Hx of right inguinal hernia repair Family History Sister Breast cancer Colonic polyp Mother CHF (congestive heart failure) Father CHF (congestive heart failure) Aneurysm Other No family history of adverse response to anesthesia Past medical history not known due to adoption Social History Smoking Status: Never smoker 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); Do You Dip or Chew Tobacco: No; Hx Alcohol Use: Yes Alcohol type: beer Hx Substance Use: No Preferred Language: Greenlandic Communication Ability: Effective Dust Sampler Required: No Beliefs That Will Affect Care: None marital status: Current Living Situation: Spouse Current Living Situation Comment: with , multiple story house Feels Safe at Home: Yes Assistive Devices: Cane and Walker Review of Systems Review of Systems: Pertinent positive and negative review of systems as mentioned in the HPI Physical Exam Physical Exam: Constitutional: Alert, ill in appearance, nontoxic HEENT: Mucous membranes dry sclera clear Neck: Soft, no adenopathy Lungs: Clear to auscultation, decreased, no wheezes rales or rhonchi CV: S1-S2, irregular irregular, tachycardic Abdomen: Decreased high-pitched bowel sounds, slightly distended with some tympany, no guarding or rigidity Extremities: No significant edema Musculoskeletal: No significant joint tenderness Neuro: No focal deficits Psych: Cooperative, normal mood Results & Data Results & Data Vital Signs (Past 12 Hours) Vital Signs Temp Pulse Pulse Resp BP BP Pulse Ox 01/08/25 11:46 134/109 H 01/08/25 11:42 120 H 24 01/08/25 10:50 107 H 22 94 01/08/25 10:02 106 H 24 126/91 94 01/08/25 09:48 149 H 01/08/25 09:43 93 H 24 93 01/08/25 09:43 93 H 24 129/82 93 01/08/25 09:41 93 H 22 129/82 01/08/25 09:37 122 H 130/102 H 01/08/25 09:32 141 H 24 93 01/08/25 09:14 130/105 H 01/08/25 09:08 36.5 C 139 H 17 130/105 H 93 O2 Del Method 01/08/25 11:46 01/08/25 11:42 01/08/25 10:50 Room Air 01/08/25 10:02 Room Air 01/08/25 09:48 01/08/25 09:43 Room Air 01/08/25 09:43 Room Air 01/08/25 09:41 01/08/25 09:37 01/08/25 09:32 Room Air 01/08/25 09:14 01/08/25 09:08 Room Air Diagnostic Findings Reviewed imaging, laboratory and diagnostic studies. Pertinent findings as below. Personally reviewed EKG, atrial flutter with rapid ventricular response CT abdomen pelvis report shows some distended bowel with consistent with a early or partial small bowel obstruction, diverticulosis without evidence of diverticulitis. No definite transition point Respiratory viral panel negative Electrolytes stable Glucose 250 WBCs 17.8 hemoglobin 18.1, suspect hemoconcentration. Reviewed echocardiogram from 06/04/2024, normal ejection fraction, no significant wall motion abnormalities Code Status & VTE Plan VTE Prophylaxis Plan VTE Prophylaxis will be ordered: Yes
--- NOTE | 2025-01-08 12:15 | XRay Report ---
EXAM: Radiograph of the Chest 1 View INDICATION: Sepsis TECHNIQUE: Frontal view of the chest. COMPARISON: 06/10/2024 FINDINGS: Lungs and pleural spaces: There is minimal atelectasis in the left lung base. No pleural effusion or pneumothorax. Heart: Stable large cardiac shadow. Mediastinum: Normal contour. Bones/joints: Degenerative changes noted throughout the spine. No acute osseous abnormality seen. Soft tissues: No abnormality noted. No radiopaque foreign body noted. Upper abdomen: No abnormality noted. IMPRESSION: There is minimal atelectasis in the left lung base. ACT 112: Negative or not required by law. Electronically signed by Herlinda Berry 01-08-2025 12:15 PM
--- NOTE | 2025-01-08 13:16 | XRay Report ---
EXAM: Radiograph of the Abdomen 1 View INDICATION: Nasogastric tube placement TECHNIQUE: Frontal supine view of the abdomen/pelvis. COMPARISON: No relevant prior studies available. FINDINGS: Limitations: None. Lower thorax: Minimal atelectasis left lung base. Gastrointestinal tract: Dilated small bowel loops noted in the upper abdomen. Organs: Visualized organ shadows appear grossly normal. Bones/joints: No fracture, erosion or dislocation. Soft tissues: No abnormality noted. No radiopaque foreign body noted. Tubes, lines and devices: Nasogastric tube terminates in the gastric fundus. IMPRESSION: 1. Nasogastric tube terminates in the gastric fundus. 2. Small bowel obstruction. ACT 112: Negative or not required by law. Electronically signed by Herlinda Berry 01-08-2025 13:16 PM
[2025-01-08] MEDS ORDERED: GLUCAGON FOR INJ 1 MG VIAL SQ PRN (15:50)
[2025-01-08] MEDS ORDERED: GLUCOSE 40% GEL 15 GM TUBE PO PRN (15:50)
[2025-01-08] MEDS ORDERED: DEXTROSE 50% 50 ML SYRINGE IV PRN (15:50)
[2025-01-08] MEDS ORDERED: CARBOHYDRATES FOR HYPOGLYCEMIA PO PRN (15:50)
[2025-01-08] MEDS ORDERED: GLUCOSE 10 TAB/TUBE PO PRN (15:50)
[2025-01-08] MEDS: LACTATED RINGER'S 1,000 ML IV SCH (16:15)
[2025-01-08] MEDS: METOPROLOL SUCC 25MG EXT REL TAB PO SCH (16:39)
[2025-01-08] MEDS: APIXABAN 5 MG TABLET PO SCH (16:40)
[2025-01-08] MEDS: FAMOTIDINE 20MG IV PUSH 20 MG/5 ML SYR IV SCH (17:01)
[2025-01-08 17:13] LABS: Appearance Urine Clear (Clear); Bacteria Urine Automated None Seen (None Seen); Bilirubin Urine Negative (Negative); Blood Urine Trace (Negative); Cast Urine Automated 0-2 /lpf (0-2); Color Urine Yellow; Epithelial Cell Urine Auto 0-2 /hpf (0-2); Glucose Urine UA 3+ (Negative); Ketones Urine 1+ (Negative); Leukocyte Esterase Urine Negative (Negative); Nitrite Urine Negative (Negative); Protein Urine Trace (Negative); RBC Urine Automated 0-2 /hpf (0-2); Specific Gravity Urine > 1.045 (1.000-1.030); Urobilinogen Urine Negative (Negative); WBC Urine Automated 0-5 /hpf (0-5)
[2025-01-08] MEDS: ONDANSETRON INJ 2 MG/ML 2 ML VIAL IV PRN (17:24)
[2025-01-08] MEDS: KETOROLAC TROMETHAMINE 15 MG/ML VIAL IV PRN (17:48)
[2025-01-08] MEDS: INSULIN ASPART PER UNIT CHARGE SC SCH (17:49)
--- NOTE | 2025-01-08 19:42 | Surgery Consultation ---
Date of Consultation January 08, 2025 Assessment & Plan (1) SBO (small bowel obstruction): The patient has been admitted on the hospitalist service. From surgery perspective we recommend the following: N.p.o. status has been implemented and should be maintained IV fluids to be provided for hydration An NG tube has been placed as noted in previous section of this document and should be maintained a low continuous suction. Remove this NG tube will be dependent on improvement in patient's abdominal exam and return of bowel function at which time consideration be given to advancing his diet beginning with clear liquids The patient does take Eliquis for history of atrial fibrillation and he has r eceived a dose this evening. I directly contacted the hospital service and inquired whether or not this medication can be held on a clinical basis. It would be preferable holds medication until we are certain the patient will not require any surgical or procedural intervention. The hospitalist note that they will place this medication on hold Serial labs to be followed At the present time the patient is nontoxic-appearing. He notes he has achieved some symptomatic relief with placement of NG tube. He is tachycardic but has a history of atrial fibrillation. He is normotensive and does not have fever. He does have a leukocytosis but again is nontoxic-appearing therefore I feel a trial of conservative measures is warranted. Would also be preferable to treat this nonoperatively at this time due to the fact that the patient has not miss any doses of Eliquisif surgery was to be performed would be preferable to have him off this medication for a few days to minimize the risk of any surgical bleeding should he require an operation. Additional recommendations with forthcoming based on his clinical course as it unfolds Addendum (6:15 AM) Patient revisited at bedside. I discussed with nursing notes that she feels NG tube may become dislodged last evening. She notified the medical service to check a KUB and this study shows that the NG tube appears to terminate in the gastric body. The patient notes that he does have some abdominal soreness but he is passing gas. On physical exam patient's abdomen appears less distended than what was noted on previous exam. There is minimal tenderness on palpation. Will continue with plan as noted above History of Present Illness Reason for Consultation: Small bowel obstruction Attending Physician: Billy Hardin DO History of Present Illness This is a 74-year-old male who presented to the hospital secondary to abdominal pain and bloating on 01/08/2025. Patient notes that the evening before presentation the patient noted some generalized abdominal pain in his lower abdomen with a feeling of bloating.. He also felt an ache-like feeling without radiation in his lower abdomen. He had an episode of nausea and vomiting. He notes that he has had small bowel obstructions in the past so he presented to the emergency department. Of note, the patient notes after his symptoms began he had a solid bowel movement but has not had any bowel movement since that time and since his symptoms began and since his most recent bowel movement he has not been passing any flatus. He does report previous abdominal surgeries in the form of a right inguinal herniorrhaphy, a cholecystectomy, and appendectomy. He also says that he has a known left inguinal hernia but this has not required surgical intervention. Patient also reports he has had small bowel obstructions in the past as noted above. Review of records show his most recent small bowel obstruction was in July 2022 which did not require surgical intervention. Patient's records were reviewed and he has had a colonoscopy in December 2022. This study was essentially normal other than some noted diverticular disease. Patient does note that he has a history of atrial fibrillation for which he takes Eliquis. He notes that he has had multiple cardiac ablations for his atrial fibrillation and his most recent dose of Eliquis was this evening which is 01/08/2025. Since arrival hospital he has had labs and imaging which I independent reviewed. Chest x-ray showed no evidence of pneumonia. A CT scan of the abdomen pelvis showed the patient had a moderately distended and fluid-filled stomach with multiple dilated proximal and mid small bowel loops with a transition point felt to be located in the right lower quadrant. The interpreting radiologist felt the transition point was not distinctly defined but did raise a concern of either an early or partial small bowel obstruction likely on the basis of adhesions. Labs include a CBC were white blood cell count was elevated 17.8. Hemoglobin and hematocrit are 18.1 and 52.7. Platelet count was normal. Coagulation studies showed an INR of 1.2. Chemistry profile showed sodium and potassium were normal. His BUN was elevated 28 with a normal creatinine. Urinalysis was not indicative of infection. A bio fire study was checked and all viruses tested for were negative. Since admission to the hospital patient has had an NG tube placed. The patient did have a KUB performed after NG tube was placed and this showed that the NG tube was in the stomach. Patient did note some symptomatic relief with placement of this tube and notes that they got approximately 2 L of gastric contents when placed. He is currently in no distress. Allergies Allergy/AdvReac Type Severity Reaction Status Date / Time doxycycline Allergy Intermediate Rash Verified 01/08/25 10:51 Iodinated Contrast Media Allergy Intermediate RASH Verified 01/08/25 10:51 latex Allergy Intermediate RASH Verified 01/08/25 10:51 morphine Allergy Intermediate RASH AND Verified 01/08/25 10:51 SWELLING acetaminophen [From Percocet] Allergy Unknown Unknown - Unverified 01/08/25 1 0:51 On file / [facility] Pharmacy atorvastatin AdvReac Intermediate Muscle Pain Verified 01/08/25 10:51 Influenza Virus Vaccines AdvReac Intermediate SICK FOR 2 Verified 01/08/25 11:12 WEEKS AFTERWARD metformin AdvReac Intermediate Diarrhea, Verified 01/08/25 10:51 ABDOMINAL PAIN oxycodone AdvReac Intermediate GI UPSET Verified 01/08/25 10:51 simvastatin AdvReac Intermediate Muscle Pain Verified 01/08/25 10:51 Home Medications Medication Instructions Recorded Confirmed Type apixaban 5 mg tablet 5 mg PO BID 10/26/18 01/08/25 History aspirin 81 mg tablet,delayed 81 mg PO HS 10/26/18 01/08/25 History release (Ecotrin Low Strength) cetirizine 10 mg tablet (Zyrtec) 10 mg PO HS 10/26/18 01/08/25 History fluticasone propionate 50 2 spray intranasal DAILY 10/26/18 01/08/25 History mcg/actuation nasal spray,suspension (Flonase Allergy Relief) rosuvastatin 40 mg tablet 40 mg PO HS 10/26/18 01/08/25 History ascorbic acid (vitamin C) 500 mg 500 mg PO QAM 02/18/21 01/08/25 History capsule cyanocobalamin (vitamin B-12) 1,000 mcg sublingual QAM 02/18/21 01/08/25 History 1,000 mcg sublingual tablet metoprolol succinate 50 mg 25 mg PO BID 02/18/22 01/08/25 History tablet,extended release 24 hr OneTouch Verio test strips (blood #400 ea 06/03/22 11/22/24 Rx sugar diagnostic) docusate sodium 100 mg capsule 100 mg PO DAILY 05/24/24 01/08/25 History acetaminophen 325 mg tablet 650 mg PO BID PRN Pain 06/09/24 01/08/25 History (Tylenol) clobetasol 0.05 % scalp solution 1 applic topical BID PRN SKIN 06/09/24 01/08/25 History IRRITATIONS empagliflozin 25 mg tablet 25 mg PO DAILY 06/09/24 01/08/25 History (Jardiance) mineral oil (Mineral Oil Heavy 15 ml PO DAILY PRN Constipation 06/09/24 01/08/25 History oral) potassium chloride 20 mEq 10 meq PO [id number] 06/09/24 01/08/25 History tablet,extended release triamcinolone acetonide 0.1 % 1 applic topical BID PRN SKIN 06/09/24 01/08/25 History topical cream IRRITATIONS lidocaine 4 % topical patch 1 patch topical DAILY #30 ea 06/11/24 01/08/25 Rx Dexcom G7 Sensor (blood-glucose #9 ea 11/22/24 11/22/24 Rx sensor) insulin aspart U-100 100 unit/mL 25 unit subcut TID PRN Before 11/22/24 01/08/25 History (3 mL) subcutaneous pen (Novolog meals for diabetes FlexPen U-100 Insulin aspart) insulin glargine U-300 conc 300 40 unit subcut DAILY 11/22/24 01/08/25 History unit/mL (1.5 mL) subcutaneous pen (Toujeo SoloStar U-300 Insulin) pen needle, diabetic 32 gauge x #500 ea 11/22/24 11/22/24 Rx 5/32" (BD Aisha 2nd Gen Pen Needle) magnesium oxide 420 mg tablet 420 mg PO DAILY 01/08/25 01/08/25 History omeprazole 40 mg capsule,delayed 40 mg PO DAILY 01/08/25 01/08/25 History release urea 20 % topical cream 1 applic topical DAILY Dry skin 01/08/25 01/08/25 History Patient History Medical History History of COVID-19 07/2022, home test and pcr test [facility]-admitted for 2 days; intestinal symptoms- given antiviral>resolved. Hx of hemorrhoids "currently having a lot of bleeding from his hemorrhoids" Elevated liver enzymes History of dizziness RESOLVED Nausea and vomiting after administration of anesthetic agent History of anesthesia reaction PER PT WITH HEAVY ANESTHESIA GI MOTILITY SLOWS DOWN Excessive thirst ONGOING "IT'S BEEN FOREVER" NOTICE IT FIRST THING IN THE MORNING History of ileus Tortuous colon BORN WITH History of atrial flutter Sciatic nerve pain Degenerative disc disease Osteoarthritis Diverticular disease GERD (gastroesophageal reflux disease) Hiatal hernia Diabetes mellitus, type 2 On anticoagulant therapy on eliquis Depression no meds History of cardioversion x2--last one 09/26/2013 Atrial fibrillation DX 2005 ? , follows with Dr. Tomlin, HX 2 CARDIOVERSIONS Sleep apnea BIPAP Chronic constipation Partial small bowel obstruction (11/28/13) hx HTN (hypertension) (09/26/14) Hyperlipidemia (09/26/14) Diarrhea "comes and goes" CAD (coronary artery disease) (09/26/14) Surgical History History of cataract surgery bilat. History of liver biopsy d/t elevated liver functions--"was ok" History of colonoscopy pt stated that he needs the "pediatric scope" History of esophagogastroduodenoscopy (EGD) Hx of right inguinal hernia repair History of cholecystectomy History of appendectomy History of wisdom tooth extraction History of tonsillectomy and adenoidectomy History of eye surgery x2--bug removal and piece of tree History of cardiac cath 2008, [facility], x1 stentl; f/u dr tomlin, s History of heart artery stent 2007--[facility] History of cardiac radiofrequency ablation x3-- for A-fib @ [facility] Family History Sister Breast cancer Colonic polyp Mother CHF (congestive heart failure) Father CHF (congestive heart failure) Aneurysm Other No family history of adverse response to anesthesia Past medical history not known due to adoption Social History Smoking Status: Never smoker Second Hand Exposure: No; Do You Dip or Chew Tobacco: No; Tobacco Cessation Education Requested by Patient: No Hx Alcohol Use: No Hx Substance Use: No Preferred Language: Bermudian Communication Ability: Effective 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 Required: No Beliefs That Will Affect Care: None marital status: Current Living Situation: Spouse Current Living Situation Comment: with , multiple story house Other Information That Helps Us Care for You: No Feels Safe at Home: Yes Safety Concerns: Feels Safe At This Time Assistive Devices: BiPap and Glasses Assistive Devices Comment: BiPap for IFRAH and glasses to read Review of Systems Review of Systems: All systems reviewed & are unremarkable except as noted in HPI & below Physical Exam Constitutional: WD/WN, vitals as above Eyes: no conjunctival abnormality ENMT: Ears: no hearing impairment and no external ear abnormality Mouth: no oropharynx abnormality Neck: trachea midline Respiratory: normal respiratory effort; no respiratory distress and no labored breathing Cardiovascular: Rate/Rhythm: regular rate and regular rhythm Gastrointestinal (Abdomen): Abdomen has mild to moderate distention and is somewhat tympanic to percussion. There is minimal pain with palpation and there is no rebound tenderness or guarding. I did not appreciate any hernias on exam. An NG tube is in place draining dark-colored gastric contents Musculoskeletal: No calf tenderness Skin: no rashes Neurologic: moves all extremities Psychiatric: A+Ox3, euthymic affect Results & Data Vital Signs (Past 12 Hours) Vital Signs Temp Pulse Pulse Resp BP BP Pulse Ox 01/08/25 16:56 119 H 01/08/25 15:50 01/08/25 15:11 36.6 C 126 H 16 131/95 93 01/08/25 14:00 138/93 01/08/25 13:45 115 H 22 91 01/08/25 13:30 113 H 22 125/79 93 01/08/25 13:06 131/99 95 01/08/25 13:03 117 H 01/08/25 12:30 115 H 24 145/102 H 92 01/08/25 12:00 113 H 24 129/104 H 93 01/08/25 12:00 115 H 24 129/104 H 94 01/08/25 11:46 134/109 H 01/08/25 11:42 120 H 24 01/08/25 10:50 107 H 22 94 01/08/25 10:02 106 H 24 126/91 94 01/08/25 09:48 149 H 01/08/25 09:43 93 H 24 93 01/08/25 09:43 93 H 24 129/82 93 01/08/25 09:41 93 H 22 129/82 01/08/25 09:37 122 H 130/102 H 01/08/25 09:32 141 H 24 93 01/08/25 09:14 130/105 H 01/08/25 09:08 36.5 C 139 H 17 130/105 H 93 Pulse Ox O2 Del Method O2 Del Method 01/08/25 16:56 01/08/25 15:50 93 Room Air 01/08/25 15:11 Room Air 01/08/25 14:00 01/08/25 13:45 Room Air 01/08/25 13:30 Room Air 01/08/25 13:06 Room Air 01/08/25 13:03 01/08/25 12:30 Room Air 01/08/25 12:00 Room Air 01/08/25 12:00 01/08/25 11:46 01/08/25 11:42 01/08/25 10:50 Room Air 01/08/25 10:02 Room Air 01/08/25 09:48 01/08/25 09:43 Room Air 01/08/25 09:43 Room Air 01/08/25 09:41 01/08/25 09:37 01/08/25 09:32 Room Air 01/08/25 09:14 01/08/25 09:08 Room Air PG Care Time/CCT Total # of Minutes Spent Total Time Spent with Patient: Total time spent is greater than 50% in coordination of care (as documented) at patient's floor/unit and/or counseling patient: Coding Level of Care Code 35449 INT INP/OBS CARE 75MIN Diagnoses SBO (small bowel obstruction) K56.609
[2025-01-08] MEDS: ASPIRIN 81 MG ECTAB PO SCH (20:09)
[2025-01-08] MEDS: METOPROLOL TARTRATE 1 MG/ML VIAL IV PRN (20:55)
[2025-01-09] MEDS ORDERED: Nursing to Pharmacy Communication SCH (00:45)
--- NOTE | 2025-01-09 05:45 | XRay Report ---
EXAM: XR KUB/Abdomen 1 view CLINICAL HISTORY: NGT placement TECHNIQUE: An X-ray image of the abdomen was obtained in a supine position. COMPARISON: 01/08/2025 FINDINGS: NGT is seen with its distal tip below left hemidiaphragm likely at the gastric body. Gas Pattern: Redemonstrated prominent small bowel loops with a caliber reaching 5.6 cm. Soft Tissues: Soft tissues of the abdomen appear normal without evidence of masses or calcifications. IMPRESSION: 1. NGT is seen with its distal tip below left hemidiaphragm likely at the gastric body (new). 2. Redemonstrated prominent small bowel loops (unchanged). Electronically signed by Kushal Swann 01-09-2025 05:45 AM
[2025-01-09] MEDS: INSULIN ASPART PER UNIT CHARGE SC SCH (06:05)
[2025-01-09 06:44] LABS: Hematocrit (blood only) 53.5 % (42.0-52.0); Hemoglobin 18.3 g/dl (14.0-18.0); Mean Corpuscular Hgb Conc 34.2 g/dL (32.0-36.0); Mean Corpuscular Volume 93.5 fL (80.0-100.0); Mean Platelet Volume 11.2 fL (9.4-12.4); Platelet Count 172 K/uL (130-400); RDW Coefficient of Variation 14.4 % (11.5-14.5); RDW Standard Deviation 49.6 fL (36.4-46.3); Red Blood Count 5.72 M/uL (4.70-6.10); White Blood Count 11.12 K/ul (4.8-10.8)
[2025-01-09 07:09] LABS: BUN Creatinine Ratio 33.6 (10-20); Calcium 10.3 mg/dl (8.6-10.3); Magnesium 2.4 mg/dl (1.7-2.4); Potassium 4.3 mmol/L (3.5-5.1)
[2025-01-09] MEDS: LANTUS PER UNIT CHARGE SC SCH (08:43)
[2025-01-09] MEDS: FLUTICASONE PROPIONATE NA SPR 16 GM BTL SCH (08:44)
[2025-01-09] MEDS: DOCUSATE SODIUM 100 MG CAP PO SCH (08:46)
[2025-01-09 08:49] LABS: Estimated Average Glucose 123 mg/dl; Hemoglobin A1C 5.9 % (4.5-5.6)
[2025-01-09] MEDS: SODIUM CHLORIDE 0.65% NA SOLN 45 ML (OCEAN) ONE (09:12)
--- NOTE | 2025-01-09 09:58 | Surgery Progress Note ---
Date of Service January 09, 2025 Assessment & Plan (1) SBO (small bowel obstruction): Plan: CT images and results were personally viewed and interpreted by myself Has some dilated small bowel but passing flatus consistent with a pSBO No plans for surgical intervention Continue NGT and NPO at this time [facility] surgery to assume care today Admission and Anticipated Discharge Date Admission Date: January 08, 2025 Subjective Pt seen and examined. Passing flatus, no BM. Afebrile. Pain improved. Still feels distended. Review of Systems Constitutional: no fever and no chills Respiratory: no cough and no dyspnea Cardiovascular: no chest pain and no dyspnea on exertion Gastrointestinal: + abdominal pain, + nausea and + constip ation; no vomiting Genitourinary: no dysuria or no decreased urination Musculoskeletal: no back pain and no neck pain Psychiatric: no behavioral changes and no depression Hematologic / Lymphatic: no easy bleeding and no easy bruising Physical Exam Constitutional: WD/WN, vitals as above Respiratory: normal respiratory effort, lungs clear to auscultation Cardiovascular: RRR, no murmur, no edema Gastrointestinal (Abdomen): Inspection/Auscultation: abdomen normal to inspection and + abdomen distended Percussion/Palpation: abdomen soft; abdomen nontender and no guarding Skin: no rashes, warm and dry Neurologic: PERRL, EOMI, accommodation nl, no face palsy, no dysarthria Psychiatric: A+Ox3, euthymic affect Results & Data Vital Signs (Past 12 Hours) Vital Signs Temp Pulse Pulse Resp BP Pulse Ox O2 Del Method 01/09/25 07:56 36.7 C 87 18 129/81 94 Room Air 01/09/25 07:17 121 H 01/09/25 03:42 36.7 C 113 H 18 135/95 93 Room Air 01/09/25 00:00 36.4 C L 125 H 18 132/94 93 Room Air PG Care Time/CCT Total # of Minutes Spent Total Time Spent with Patient: Total time spent is greater than 50% in coordination of care (as documented) at patient's floor/unit and/or counseling patient: Coding Level of Care Code 27456 SUB INP/OBS CARE 12/10MIN Diagnoses SBO (small bowel obstruction) K56.609
--- NOTE | 2025-01-09 12:21 | Hospitalist Progress Note ---
Date of Service January 09, 2025 Assessment & Plan (1) Partial small bowel obstruction: (2) Paroxysmal atrial fibrillation with rapid ventricular response: (3) Type 2 diabetes mellitus with insulin therapy: (4) IFRAH on CPAP: (5) Fatty liver disease, nonalcoholic: Plan 74-year-old male with PMH of SBO d/t adhesion resulting from previous abdominal surgeries [appendectomy, cholecystectomy], CAD s.p stent, Atrial flutter s/p ablation and on Eliquis, HTN, HLD, COPD, IFRAH on BPAP, GERD, T2DM insulin requiring, chronic back pain, RLS, past tobacco abuse presented to the ED 01/08 with complaint of nausea, vomiting, abdominal discomfort progressively worsening. He reported some emesis appearing feculent and hence he decided to come to the ED. He is being managed for the following: Small bowel obstruction Patient presented with nausea, vomiting. See above. Admitting CTAP suggestive of SBO. General surgery on board, NGT in place, NPO. Monitor and replete electrolytes. c/w IVF. Patient has not moved bowel, is moving gas. Reports some improvement in his belly pain. Atrial flutter with RVR: Admitting EKG: Atrial flutter with heart rate 148. Heart rate has improved, continue with home metoprolol and as needed IV metoprolol. Continue with telemetry monitoring, patient denies chest pain or shortness of breath. Hep drip now instead of home eliquis in case he needs any surgical intervention. Leucocytosis: Suspect leukocytosis is reactive due to the small bowel obstruction, at this time no evidence of bacterial infection, will continue to monitor off of antibiotic and reassess need for any type of further intervention. CXR w/ no acute finding. Pt afebrile, WBC trended down to 11K today. Other chronic medical conditions: Continue with/resume home meds as and when able. Prostatomegaly, distended urinary bladder: Follow-up with urology as prior. CAD: Status post stent. Continue cardiac medications. Hypertension: Stable. Continue to monitor. Continue home medications. Hyperlipidemia: On statin at home, currently on hold. COPD, IFRAH on BPAP: Patient without any pulmonary complaints T2DM: Insulin requiring, continue with sliding scale insulin while in hospital. DVT prophylaxis: Patient on heparin drip Full code Admission and Anticipated Discharge Date Admission Date: January 08, 2025 Subjective Patient was seen and examined at bedside. Patient was lying in bed, on room air, NG tube in situ, reports some nausea, denies vomiting. Patient reports last bowel movement last Thursday. Patient reports moving gas. Reports improving belly pain. Patient denies sore throat or cough or chest pain. Physical Exam Physical Exam: Constitutional: Alert, ill in appearance, nontoxic HEENT: Mucous membranes dry sclera clear Neck: Soft, no adenopathy Lungs: Clear to auscultation, decreased, no wheezes rales or rhonchi CV: S1-S2, irregular irregular, tachycardic Abdomen: Decreased high-pitched bowel sounds, slightly distended with some tympany, no guarding or rigidity Extremities: No significant edema Musculoskeletal: No significant joint tenderness Neuro: No focal deficits Psych: Cooperative, normal mood Results & Data Results & Data Vital Signs (Past 12 Hours) Vital Signs Temp Pulse Pulse Resp BP Pulse Ox O2 Del Method 01/09/25 10:44 36.8 C 109 H 17 127/91 93 Room Air 01/09/25 07:56 36.7 C 87 18 129/81 94 Room Air 01/09/25 07:17 121 H 01/09/25 03:42 36.7 C 113 H 18 135/95 93 Room Air
[2025-01-09] MEDS: HEPARIN 25000 UNIT/500 ML D5W 25,000 UNITS/500 ML BAG IV SCH (13:44)
[2025-01-09] MEDS: Heparin IV Adult Wt-Based Low-Dose *NO* INITIAL Bolus Protocol IV STA (13:45)
[2025-01-09] MEDS: KETOROLAC TROMETHAMINE 15 MG/ML VIAL IV PRN (17:49)
[2025-01-09 21:33] LABS: ANTI-Xa, UFH(UnfractionatedHep 1.07 IU/ml (0.3-0.7)
[2025-01-09] MEDS: PANTOprazole 40 MG/10 ML SYR IV SCH (22:26)
[2025-01-10 06:58] LABS: Hematocrit (blood only) 46.6 % (42.0-52.0); Mean Corpuscular Hemoglobin 31.7 pg (25.0-34.0); Mean Corpuscular Hgb Conc 34.3 g/dL (32.0-36.0); Mean Corpuscular Volume 92.5 fL (80.0-100.0); Mean Platelet Volume 11.2 fL (9.4-12.4); Platelet Count 132 K/uL (130-400); RDW Standard Deviation 47.8 fL (36.4-46.3); Red Blood Count 5.04 M/uL (4.70-6.10); White Blood Count 6.02 K/ul (4.8-10.8)
[2025-01-10 07:16] LABS: ANTI-Xa, UFH(UnfractionatedHep 0.34 IU/ml (0.3-0.7)
[2025-01-10 07:40] LABS: BUN Creatinine Ratio 52.6 (10-20); Calcium 8.6 mg/dl (8.6-10.3); Creatinine Clr Calc Pharmacy 106.9 ml/min; Magnesium 2.3 mg/dl (1.7-2.4); Phosphorus 2.6 mg/dl (2.5-4.9); Potassium 3.9 mmol/L (3.5-5.1)
--- NOTE | 2025-01-10 09:36 | Surgery Progress Note ---
Date of Service January 10, 2025 Assessment & Plan (1) SBO (small bowel obstruction): Plan resolving SBO avss Plan: Remove NGT start clears, advised to go slowly groundsman consult, low fiber diet on discharge for 1-2 weeks encouraged ambulating hallway continue medical management Dr. Arteaga has seen and examined pt, agrees with above Admission and Anticipated Discharge Date Admission Date: January 08, 2025 Subjective feeling better passing gas and multiple bowel movements NGT still on suction No n,v, bloating, belching + hiccups since NGT placed abdomen feels less bloated some pain in RLQ Physical Exam Constitutional: WD/WN, vitals as above cooperative and comfortable; no acute distress and not ill appearing Respiratory: normal respiratory effort; no respiratory distress Gastrointestinal (Abdomen): Inspection/Auscultation: abdomen normal to inspection and + abdominal surgical scar (laparoscopic scars); abdomen not distended Percussion/Palpation: + abdomen tender (mild in LUQ and RLQ) and abdomen soft; no guarding and abdomen not rigid NGT with bilious output in tubing Skin: no rashes, warm and dry Psychiatric: A+Ox3, euthymic affect Results & Data Vital Signs (Past 12 Hours) Vital Signs Temp Pulse Pulse Resp BP Pulse Ox O2 Del Method 01/10/25 08:17 Room Air 01/10/25 07:49 36.4 C L 89 17 117/81 96 Room Air 01/10/25 03:02 36.7 C 90 17 114/73 98 Room Air 01/09/25 22:47 36.5 C 85 18 143/89 H 96 Room Air 01/09/25 21:58 99 H Laboratory Results 01/10/25 01/10/25 01/10/25 Range/Units 07:24 06:26 05:58 WBC 6.02 (4.8-10.8) K/ul RBC 5.04 (4.70-6.10) M/uL Hgb 16.0 (14.0-18.0) g/dl Hct 46.6 (42.0-52.0) % MCV 92.5 (80.0-100.0) fL MCH 31.7 (25.0-34.0) pg MCHC 34.3 (32.0-36.0) g/dL RDW Std Deviation 47.8 H (36.4-46.3) fL RDW Coeff of Dominic 14.0 (11.5-14.5) % Plt Count 132 (130-400) K/uL MPV 11.2 (9.4-12.4) fL Heparin Anti-Xa, Unfract 0.34 (0.3-0.7) IU/ml Sodium 145 (136-145) mmol/L Potassium 3.9 (3.5-5.1) mmol/L Chloride 110 H (98-107) mmol/L Carbon Dioxide 26 (21-32) mmol/L Anion Gap 9 (3-11) BUN 40 H (6-23) mg/dl Creatinine 0.76 D (0.6-1.4) mg/dl Est Cr Clr Drug Dosing 106.9 ml/min eGFR 94.91 BUN/Creatinine Ratio 52.6 H (10-20) Glucose 114 H (70-99(Fasting)) mg/dl POC Glucose 110 H 115 H (70-99) mg/dl Calcium 8.6 (8.6-10.3) mg/dl Phosphorus 2.6 (2.5-4.9) mg/dl Magnesium 2.3 (1.7-2.4) mg/dl 01/10/25 01/09/25 01/09/25 Range/Units 00:18 20:14 17:37 WBC (4.8-10.8) K/ul RBC (4.70-6.10) M/uL Hgb (14.0-18.0) g/dl Hct (42.0-52.0) % MCV (80.0-100.0) fL MCH (25.0-34.0) pg MCHC (32.0-36.0) g/dL RDW Std Deviation (36.4-46.3) fL RDW Coeff of Dominic (11.5-14.5) % Plt Count (130-400) K/uL MPV (9.4-12.4) fL Heparin Anti-Xa, Unfract 1.07 H* (0.3-0.7) IU/ml Sodium (136-145) mmol/L Potassium (3.5-5.1) mmol/L Chloride (98-107) mmol/L Carbon Dioxide (21-32) mmol/L Anion Gap (3-11) BUN (6-23) mg/dl Creatinine (0.6-1.4) mg/dl Est Cr Clr Drug Dosing ml/min eGFR BUN/Creatinine Ratio (10-20) Glucose (70-99(Fasting)) mg/dl POC Glucose 105 H 118 H (70-99) mg/dl Calcium (8.6-10.3) mg/dl Phosphorus (2.5-4.9) mg/dl Magnesium (1.7-2.4) mg/dl 01/09/25 Range/Units 11:21 WBC (4.8-10.8) K/ul RBC (4.70-6.10) M/uL Hgb (14.0-18.0) g/dl Hct (42.0-52.0) % MCV (80.0-100.0) fL MCH (25.0-34.0) pg MCHC (32.0-36.0) g/dL RDW Std Deviation (36.4-46.3) fL RDW Coeff of Dominic (11.5-14.5) % Plt Count (130-400) K/uL MPV (9.4-12.4) fL Heparin Anti-Xa, Unfract (0.3-0.7) IU/ml Sodium (136-145) mmol/L Potassium (3.5-5.1) mmol/L Chloride (98-107) mmol/L Carbon Dioxide (21-32) mmol/L Anion Gap (3-11) BUN (6-23) mg/dl Creatinine (0.6-1.4) mg/dl Est Cr Clr Drug Dosing ml/min eGFR BUN/Creatinine Ratio (10-20) Glucose (70-99(Fasting)) mg/dl POC Glucose 140 H (70-99) mg/dl Calcium (8.6-10.3) mg/dl Phosphorus (2.5-4.9) mg/dl Magnesium (1.7-2.4) mg/dl
--- NOTE | 2025-01-10 14:51 | Hospitalist Progress Note ---
Date of Service January 10, 2025 Assessment & Plan (1) Partial small bowel obstruction: (2) Paroxysmal atrial fibrillation with rapid ventricular response: (3) Type 2 diabetes mellitus with insulin therapy: (4) IFRAH on CPAP: (5) Fatty liver disease, nonalcoholic: Plan 74-year-old male with PMH of SBO d/t adhesion resulting from previous abdominal surgeries [appendectomy, cholecystectomy], CAD s.p stent, Atrial flutter s/p ablation and on Eliquis, HTN, HLD, COPD, IFRAH on BPAP, GERD, T2DM insulin requiring, chronic back pain, RLS, past tobacco abuse presented to the ED 01/08 with complaint of nausea, vomiting, abdominal discomfort progressively worsening. He reported some emesis appearing feculent and hence he decided to come to the ED. He is being managed for the following: Small bowel obstruction Patient presented with nausea, vomiting. See above. Admitting CTAP suggestive of SBO. General surgery on board, on clears today. Pt moved bowels twice, reports improvement in belly pain. Monitor and replete electrolytes. dc IVF. Atrial flutter with RVR: Admitting EKG: Atrial flutter with heart rate 148. Heart rate has improved, continue with home metoprolol and as needed IV metoprolol. Continue with telemetry monitoring, patient denies chest pain or shortness of breath. Hep drip now to be dc'd later in the evening and resume home eliquis now that bowel obstruction is improving. Leucocytosis: Suspect leukocytosis is reactive due to the small bowel obstruction, at this time no evidence of bacterial infection, will continue to monitor off of antibiotic and reassess need for any type of further intervention. CXR w/ no acute finding. Pt afebrile, WBC trended down to 6K today. Other chronic medical conditions: Continue with/resume home meds as and when able. Prostatomegaly, distended urinary bladder: Follow-up with urology as prior. CAD: Status post stent. Continue cardiac medications. Hypertension: Stable. Continue to monitor. Continue home medications. Hyperlipidemia: On statin at home, currently on hold. COPD, IFRAH on BPAP: Patient without any pulmonary complaints T2DM: Insulin requiring, continue with sliding scale insulin while in hospital. DVT prophylaxis: Patient on heparin drip Full code Dispo: gradually ADAT, gen sx following, likely dc nan. Admission and Anticipated Discharge Date Admission Date: January 08, 2025 Subjective Patient was seen and examined at bedside. Patient was lying in bed, on room air, NG tube has been removed, reports no nausea, denies vomiting. Patient reports 2 bowel movements, improvement in belly pain. Patient denies sore throat or cough or chest pain. Physical Exam Physical Exam: Constitutional: Alert, awake, nontoxic HEENT: Mucous membranes moist, sclera clear Neck: Soft, no adenopathy Lungs: Clear to auscultation, decreased, no wheezes rales or rhonchi CV: S1-S2, irregular irregular, tachycardic Abdomen: Soft, bowel sounds present, nontender, no distention. Extremities: No significant edema Musculoskeletal: No significant joint tenderness Neuro: No focal deficits Psych: Cooperative, normal mood Results & Data Results & Data Vital Signs (Past 12 Hours) Vital Signs Temp Pulse Resp BP Pulse Ox O2 Del Method 01/10/25 10:53 36.2 C L 84 18 107/72 96 Room Air 01/10/25 08:17 Room Air 01/10/25 07:49 36.4 C L 89 17 117/81 96 Room Air 01/10/25 03:02 36.7 C 90 17 114/73 98 Room Air
--- NOTE | 2025-01-10 22:18 | Communication Note ---
Date of Service: January 10, 2025 Patient with increasing abdominal discomfort and distention as per RN. N.p.o. Repeat CT abdomen pelvis given Eliquis Rx Hold Eliquis Rx for now
[2025-01-10] MEDS: ACETAMINOPHEN 1,000 MG/100 ML VIAL IV STA (22:34)
[2025-01-10] MEDS: METOPROLOL TARTRATE 1 MG/ML VIAL IV STA (22:35)
[2025-01-10] MEDS: SODIUM CHLOR 0.45% + 20MEQ KCL 20 MEQ/1,000 ML BAG IV ONE (23:43)
--- NOTE | 2025-01-11 00:49 | CT Scan Report ---
Exam(s): CT ABDOMEN + PELVIS Without Contrast EXAM: CT Abdomen and Pelvis Without Intravenous Contrast CLINICAL HISTORY: Reason for exam: abd pain, ELIQUIS. TECHNIQUE: Axial computed tomography images of the abdomen and pelvis without intravenous contrast. CTDI is 27.03 mGy and DLP is 1467.29 mGy-cm. Automated exposure control was utilized for the study. A dose lowering technique was utilized adhering to the principles of ALARA. COMPARISON: 01/08/2025. FINDINGS: The exam is limited due to lack of contrast. Lung bases: No consolidation. Heart contains coronary artery calcifications ABDOMEN: Liver: The liver is enlarged. Gallbladder and bile ducts: The patient is status post cholecystectomy.. No ductal dilation. Pancreas: No ductal dilation. Spleen: The spleen is mildly enlarged.. Adrenals: No mass. Kidneys and ureters: No obstructing stones. No hydronephrosis. Stomach and bowel: The stomach is distended containing fluid and air. There are markedly distended loops of proximal and mid small bowel. There is air and stool noted in the colon. There are diverticula present on the colon. No significant inflammatory changes are seen.. PELVIS: Appendix: The appendix is not visualized.. Bladder: No calculi are noted within the bladder.. Reproductive: Unremarkable as visualized. ABDOMEN and PELVIS: Intraperitoneal space: No free air. No significant fluid collection. Bones/joints: There are marked degenerative changes in the spine.. Soft tissues: Unremarkable. Vasculature: No abdominal aortic aneurysm. Lymph nodes: No enlarged lymph nodes. IMPRESSION: The stomach is distended containing fluid and air. There are markedly distended loops of proximal and mid small bowel. This appears similar to previous examination and appears to represent a partial small bowel obstruction. Diverticulosis. Hepatosplenomegaly. See discussion above Electronically signed by: Siddhartha Roque MD 01/11/25 00:48 AM
[2025-01-11 07:24] LABS: BUN Creatinine Ratio 29.6 (10-20); Calcium 8.4 mg/dl (8.6-10.3); Creatinine Clr Calc Pharmacy 100.4 ml/min; Phosphorus 2.7 mg/dl (2.5-4.9)
[2025-01-11 07:41] LABS: ANTI-Xa, UFH(UnfractionatedHep 0.56 IU/ml (0.3-0.7); Partial Thromboplastin Ratio 1.2; Partial Thromboplastin Time 32 Seconds (21-31)
[2025-01-11] MEDS: LANTUS PER UNIT CHARGE SC SCH (08:46)
--- NOTE | 2025-01-11 09:47 | Surgery Progress Note ---
Date of Service January 11, 2025 Assessment & Plan (1) SBO (small bowel obstruction): Plan avss + flatus, multiple bowel movements 01/09-01/10, none today repeat ct scan with similar findings from 01/08/25 Plan: can likely start clears again this afternoon if continues to pass flatus, advised to go slowly imaging likely lagging behind as patient is improving clinically no abdominal pain, soft abdomen, mild distention sweatband separator consult, low fiber diet on discharge for 1-2 weeks encouraged ambulating hallway to increase GI motility continue medical management Dr. Arteaga has seen and examined pt, agrees with above Admission and Anticipated Discharge Date Admission Date: January 08, 2025 Subjective feeling better than last evening, felt bloated after clear liquids last night no significant abdominal pain passing gas and was passing gas last night, no bowel movement today so far ambulated hallway yesterday no nausea or vomiting this morning Physical Exam Constitutional: WD/WN, vitals as above cooperative and comfortable; no acute distress and not ill appearing Respiratory: normal respiratory effort; no respiratory distress and no labored breathing Gastrointestinal (Abdomen): Inspection/Auscultation: + abdomen distended (mild) and + abdominal surgical scar (laparoscopic scars and RIH scar); + abnormal bowel sounds Percussion/Palpation: abdomen soft; abdomen nontender, no guarding and abdomen not rigid Skin: no rashes, warm and dry Psychiatric: Orientation: alert and oriented x 3 Results & Data Vital Signs (Past 12 Hours) Vital Signs Temp Pulse Pulse Resp BP Pulse Ox O2 Del Method 01/11/25 07:32 36.6 C 79 18 107/73 97 Room Air 01/11/25 02:00 36.7 C 99 H 19 119/81 94 Room Air 01/10/25 23:52 83 01/10/25 22:49 36.7 C 102 H 20 144/77 H 95 Room Air Laboratory Results 01/11/25 01/11/25 01/10/25 Range/Units 06:03 05:54 20:28 APTT 32 H (21-31) Seconds PTT Ratio 1.2 Heparin Anti-Xa, Unfract 0.56 (0.3-0.7) IU/ml Sodium 138 (136-145) mmol/L Potassium 4.0 (3.5-5.1) mmol/L Chloride 104 (98-107) mmol/L Carbon Dioxide 26 (21-32) mmol/L Anion Gap 8 (3-11) BUN 24 H (6-23) mg/dl Creatinine 0.81 (0.6-1.4) mg/dl Est Cr Clr Drug Dosing 100.4 ml/min eGFR 93.10 BUN/Creatinine Ratio 29.6 H (10-20) Glucose 116 H (70-99(Fasting)) mg/dl POC Glucose 110 H 129 H (70-99) mg/dl Calcium 8.4 L (8.6-10.3) mg/dl Phosphorus 2.7 (2.5-4.9) mg/dl Magnesium 2.0 (1.7-2.4) mg/dl 01/10/25 01/10/25 01/10/25 Range/Units 18:10 16:45 12:26 APTT (21-31) Seconds PTT Ratio Heparin Anti-Xa, Unfract (0.3-0.7) IU/ml Sodium (136-145) mmol/L Potassium (3.5-5.1) mmol/L Chloride (98-107) mmol/L Carbon Dioxide (21-32) mmol/L Anion Gap (3-11) BUN (6-23) mg/dl Creatinine (0.6-1.4) mg/dl Est Cr Clr Drug Dosing ml/min eGFR BUN/Creatinine Ratio (10-20) Glucose (70-99(Fasting)) mg/dl POC Glucose 136 H 139 H 132 H (70-99) mg/dl Calcium (8.6-10.3) mg/dl Phosphorus (2.5-4.9) mg/dl Magnesium (1.7-2.4) mg/dl Diagnostic Findings Exam(s): CT ABDOMEN + PELVIS Without Contrast EXAM: CT Abdomen and Pelvis Without Intravenous Contrast CLINICAL HISTORY: Reason for exam: abd pain, ELIQUIS. TECHNIQUE: Axial computed tomography images of the abdomen and pelvis without intravenous contrast. CTDI is 27.03 mGy and DLP is 1467.29 mGy-cm. Automated exposure control was utilized for the study. A dose lowering technique was utilized adhering to the principles of ALARA. COMPARISON: 01/08/2025. FINDINGS: The exam is limited due to lack of contrast. Lung bases: No consolidation. Heart contains coronary artery calcifications ABDOMEN: Liver: The liver is enlarged. Gallbladder and bile ducts: The patient is status post cholecystectomy.. No ductal dilation. Pancreas: No ductal dilation. Spleen: The spleen is mildly enlarged.. Adrenals: No mass. Kidneys and ureters: No obstructing stones. No hydronephrosis. Stomach and bowel: The stomach is distended containing fluid and air. There are markedly distended loops of proximal and mid small bowel. There is air and stool noted in the colon. There are diverticula present on the colon. No significant inflammatory changes are seen.. PELVIS: Appendix: The appendix is not visualized.. Bladder: No calculi are noted within the bladder.. Reproductive: Unremarkable as visualized. ABDOMEN and PELVIS: Intraperitoneal space: No free air. No significant fluid collection. Bones/joints: There are marked degenerative changes in the spine.. Soft tissues: Unremarkable. Vasculature: No abdominal aortic aneurysm. Lymph nodes: No enlarged lymph nodes. IMPRESSION: The stomach is distended containing fluid and air. There are markedly distended loops of proximal and mid small bowel. This appears similar to previous examination and appears to represent a partial small bowel obstruction. Diverticulosis. Hepatosplenomegaly. See discussion above I personally reviewed ct images from 01/10/2025 and 01/08/2025 and concur with above findings
--- NOTE | 2025-01-11 14:10 | Hospitalist Progress Note ---
Date of Service January 11, 2025 Assessment & Plan (1) Partial small bowel obstruction: (2) Paroxysmal atrial fibrillation with rapid ventricular response: (3) Type 2 diabetes mellitus with insulin therapy: (4) IFRAH on CPAP: (5) Fatty liver disease, nonalcoholic: Plan Mr. Nieves is a 74-year-old male with PMH of SBO d/t adhesion resulting from previous abdominal surgeries [appendectomy, cholecystectomy], CAD s.p stent, Atrial flutter s/p ablation and on Eliquis, HTN, HLD, COPD, IFRAH on BPAP, GERD, T2DM insulin requiring, chronic back pain, RLS, past tobacco abuse presented to the ED 01/08 with complaint of nausea, vomiting, abdominal discomfort progressively worsening. Patient admitted for small bowel obstruction. Patient with distention overnight of 01/10 but improving this afternoon. Dispo contingent on ability to tolerate diet #Small bowel obstruction Admitting CTAP suggestive of SBO. General surgery on board -CLD yesterday, however due to distention, transitioned to NPO overnight of 01/10 -Retrial of CLD -continue ambulation as able Resume IVF @ 125cc/hr Pt moved bowels twice, reports improvement in belly pain. #Atrial flutter with RVR: improved Admitting EKG: Atrial flutter with heart rate 148. Heart rate has improved, continue with home metoprolol and as needed IV metoprolol. Continue with telemetry monitoring, patient denies chest pain or shortness of breath. Potential to resume eliquis this evening #Leucocytosis: Suspect leukocytosis is reactive due to the small bowel obstruction, at this time no evidence of bacterial infection, will continue to monitor off of antibiotic and reassess need for any type of further intervention. CXR w/ no acute finding. resolving Other chronic medical conditions: Continue with/resume home meds as and when able. Prostatomegaly, distended urinary bladder: Follow-up with urology as prior. CAD: Status post stent. Continue cardiac medications. Hypertension: Stable. Continue to monitor. Continue home medications. Hyperlipidemia: On statin at home, currently on hold. COPD, IFRAH on BPAP: Patient without any pulmonary complaints T2DM: Insulin requiring, continue with sliding scale insulin while in hospital. DVT prophylaxis: plan to resume eliquis Full code Dispo: gradually ADAT, gen sx following, Admission and Anticipated Discharge Date Admission Date: January 08, 2025 Subjective Initially felt well, but feeling dizzy and distended this am transitioned to npo overnight 2/2 abd pain and discomfort Reports some flatus but no bowel movements endorses small episode of nausea no abdominal pain however Physical Exam Constitutional: WD/WN, vitals as above Respiratory: normal respiratory effort, lungs clear to auscultation Cardiovascular: irregularly irregular Gastrointestinal (Abdomen): distended but soft, nontender Results & Data Results & Data Vital Signs (Past 12 Hours) Vital Signs Temp Pulse Resp BP Pulse Ox O2 Del Method 01/11/25 11:15 36.3 C L 79 18 100/69 94 Room Air 01/11/25 07:32 36.6 C 79 18 107/73 97 Room Air Laboratory Results [facility] 01/11/25 06:03 Sodium 138 Potassium 4.0 Chloride 104 Carbon Dioxide 26 BUN 24 H Creatinine 0.81 Glucose 116 H Calcium 8.4 L Medications Administered Home Medications Medication Instructions Recorded Confirmed Last Taken apixaban 5 mg tablet 5 mg PO BID 10/26/18 01/08/25 01/07/25 aspirin 81 mg tablet,delayed 81 mg PO HS 10/26/18 01/08/25 01/07/25 release (Ecotrin Low Strength) cetirizine 10 mg tablet (Zyrtec) 10 mg PO HS 10/26/18 01/08/25 01/07/25 fluticasone propionate 50 2 spray intranasal DAILY 10/26/18 01/08/25 01/07/25 mcg/actuation nasal spray,suspension (Flonase Allergy Relief) rosuvastatin 40 mg tablet 40 mg PO HS 10/26/18 01/08/25 01/07/25 ascorbic acid (vitamin C) 500 mg 500 mg PO QAM 02/18/21 01/08/25 01/07/25 capsule cyanocobalamin (vitamin B-12) 1,000 mcg sublingual QAM 02/18/21 01/08/25 01/07/25 1,000 mcg sublingual tablet metoprolol succinate 50 mg 25 mg PO BID 02/18/22 01/08/25 01/07/25 tablet,extended release 24 hr OneTouch Verio test strips (blood #400 ea 06/03/22 11/22/24 Unknown sugar diagnostic) docusate sodium 100 mg capsule 100 mg PO DAILY 05/24/24 01/08/25 01/07/25 acetaminophen 325 mg tablet 650 mg PO BID PRN Pain 06/09/24 01/08/25 06/09/24 15:30 (Tylenol) clobetasol 0.05 % scalp solution 1 applic topical BID PRN SKIN 06/09/24 01/08/25 Unknown IRRITATIONS empagliflozin 25 mg tablet 25 mg PO DAILY 06/09/24 01/08/25 01/07/25 (Jardiance) mineral oil (Mineral Oil Heavy 15 ml PO DAILY PRN Constipation 06/09/24 01/08/25 Unknown oral) potassium chloride 20 mEq 10 meq PO [id number] 06/09/24 01/08/25 01/07/25 tablet,extended release triamcinolone acetonide 0.1 % 1 applic topical BID PRN SKIN 06/09/24 01/08/25 Unknown topical cream IRRITATIONS lidocaine 4 % topical patch 1 patch topical DAILY #30 ea 06/11/24 01/08/25 01/07/25 Dexcom G7 Sensor (blood-glucose #9 ea 11/22/24 11/22/24 Unknown sensor) insulin aspart U-100 100 unit/mL 25 unit subcut TID PRN Before 11/22/24 01/08/25 Unknown (3 mL) subcutaneous pen (Novolog meals for diabetes FlexPen U-100 Insulin aspart) insulin glargine U-300 conc 300 40 unit subcut DAILY 11/22/24 01/08/25 01/07/25 unit/mL (1.5 mL) subcutaneous pen (Toujeo SoloStar U-300 Insulin) pen needle, diabetic 32 gauge x #500 ea 11/22/24 11/22/24 Unknown 532" (BD Aisha 2nd Gen Pen Needle) magnesium oxide 420 mg tablet 420 mg PO DAILY 01/08/25 01/08/25 01/07/25 omeprazole 40 mg capsule,delayed 40 mg PO DAILY 01/08/25 01/08/25 01/07/25 release urea 20 % topical cream 1 applic topical DAILY Dry skin 01/08/25 01/08/25 01/07/25 Active Medications Generic Name Dose Route Start Last Admin Trade Name Freq PRN Reason Stop Dose Admin Apixaban 5 mg 01/08/25 15:50 01/10/25 21:26 Apixaban 5 Mg Tablet PO 02/07/25 15:49 5 mg BID CLAUDIO Administration Aspirin 81 mg 01/08/25 21:00 01/10/25 20:27 Aspirin 81 Mg Ectab PO 02/07/25 20:59 81 mg HS CLAUDIO Administration Docusate Sodium 100 mg 01/09/25 09:00 01/11/25 08:46 Docusate Sodium 100 Mg Cap PO 02/08/25 08:59 100 mg DAILY CLAUDIO Administration Fluticasone Propionate 2 sprays 01/09/25 09:00 01/11/25 08:52 Fluticasone Propionate Na Spr 16 Gm Btl NA 02/08/25 08:59 2 sprays DAILY CLAUDIO Administration Heparin Sodium/Dextrose 25,000 units in 500 mls @ 0 mls/hr 01/09/25 12:45 01/10/25 20:08 Heparin 67014 Unit/500 Ml D5w IV 02/08/25 12:44 0 units/hr .Q0M CLAUDIO 0 mls/hr Titration Protocol 0 UNITS/HR Pantoprazole Sodium 40 mg in 10 mls @ 5 mls/min 01/09/25 21:00 01/11/25 08:46 Protonix IV 02/08/25 20:59 5 mls/min BID CLAUDIO Administration Insulin Aspart 0 units 01/09/25 06:00 01/11/25 06:14 Insulin Aspart Per Unit Charge OK 02/08/25 05:59 Not Given Q6 CLAUDIO Insulin Glargine 5 units 01/11/25 09:00 01/11/25 08:46 Lantus Per Unit Charge OK 02/10/25 08:59 5 units DAILY CLAUDIO Administration Metoprolol Succinate 25 mg 01/08/25 15:50 01/11/25 08:52 Metoprolol Succ 25mg Ext Rel Tab PO 02/07/25 15:49 25 mg BID CLAUDIO Administration Metoprolol Tartrate 5 mg 01/08/25 15:50 01/08/25 20:55 Metoprolol Tartrate 1 Mg/Ml Vial IV 02/07/25 15:49 5 mg Q4 PRN Administration sustained HR>120 Ondansetron HCl 4 mg 01/08/25 15:50 01/11/25 12:25 Ondansetron Inj 2 Mg/Ml 2 Ml Vial IV 02/07/25 15:49 4 mg Q6H PRN Administration Nausea
[2025-01-11] MEDS: LACTATED RINGER'S 1,000 ML IV SCH (15:01)
[2025-01-12 07:09] LABS: Hematocrit (blood only) 40.6 % (42.0-52.0); Hemoglobin 14.2 g/dl (14.0-18.0); Mean Corpuscular Hemoglobin 31.1 pg (25.0-34.0); Mean Platelet Volume 11.4 fL (9.4-12.4); Platelet Count 107 K/uL (130-400); RDW Coefficient of Variation 13.1 % (11.5-14.5); RDW Standard Deviation 42.8 fL (36.4-46.3); Red Blood Count 4.56 M/uL (4.70-6.10); White Blood Count 5.53 K/ul (4.8-10.8)
[2025-01-12 07:15] LABS: BUN Creatinine Ratio 20.3 (10-20); Calcium 8.4 mg/dl (8.6-10.3); Creatinine Clr Calc Pharmacy 118.5 ml/min; Magnesium 1.8 mg/dl (1.7-2.4); Phosphorus 2.5 mg/dl (2.5-4.9); Potassium 3.8 mmol/L (3.5-5.1)
[2025-01-12] MEDS ORDERED: Nursing to Pharmacy Communication SCH (07:30)
[2025-01-12] MEDS: INSULIN ASPART PER UNIT CHARGE SC SCH (08:14)
--- NOTE | 2025-01-12 10:17 | Surgery Progress Note ---
Date of Service January 12, 2025 Assessment & Plan (1) SBO (small bowel obstruction): Plan avss + flatus, + bm last evening abdomen still slightly distended, mild bloating per patient Plan: continue clears, maybe fulls later today needs to ambulate but limited due to dizziness, will reach out to hospitalist stakes player consult, low fiber diet on discharge for 1-2 weeks encouraged ambulating hallway to increase GI motility continue medical management Dr. Arteaga has seen and examined pt, agrees with above Admission and Anticipated Discharge Date Admission Date: January 08, 2025 Subjective passing gas, bowel movement last night some nausea last night some bloating tolerating clears but not taking much no abdominal pain has been getting dizzy when standing so not able to ambulate hallway much Physical Exam Constitutional: WD/WN, vitals as above cooperative and comfortable; no acute distress and not ill appearing Respiratory: normal respiratory effort; no respiratory distress Gastrointestinal (Abdomen): Inspection/Auscultation: abdomen normal to inspection, + abdomen distended (mild), normal bowel sounds and + abdominal surgical scar (laparoscopic scar and RIH scar) Percussion/Palpation: abdomen soft; abdomen nontender, no guarding, abdomen not rigid and abdomen not firm Skin: no rashes, warm and dry Psychiatric: Orientation: alert and oriented x 3 Results & Data Vital Signs (Past 12 Hours) Vital Signs Temp Pulse Pulse Resp BP Pulse Ox O2 Del Method 01/12/25 08:00 Room Air 01/12/25 07:28 36.2 C L 78 18 107/71 94 Room Air 01/12/25 07:26 75 01/12/25 03:04 36.7 C 90 17 100/62 97 Room Air 01/11/25 23:00 36.7 C 90 18 134/89 96 Room Air Laboratory Results 01/12/25 01/12/25 01/11/25 Range/Units 06:31 05:23 23:43 WBC 5.53 (4.8-10.8) K/ul RBC 4.56 L (4.70-6.10) M/uL Hgb 14.2 (14.0-18.0) g/dl Hct 40.6 L (42.0-52.0) % MCV 89.0 (80.0-100.0) fL MCH 31.1 (25.0-34.0) pg MCHC 35.0 (32.0-36.0) g/dL RDW Std Deviation 42.8 (36.4-46.3) fL RDW Coeff of Dominic 13.1 (11.5-14.5) % Plt Count 107 L (130-400) K/uL MPV 11.4 (9.4-12.4) fL Sodium 139 (136-145) mmol/L Potassium 3.8 (3.5-5.1) mmol/L Chloride 106 (98-107) mmol/L Carbon Dioxide 27 (21-32) mmol/L Anion Gap 6 (3-11) BUN 14 (6-23) mg/dl Creatinine 0.69 (0.6-1.4) mg/dl Est Cr Clr Drug Dosing 118.5 ml/min eGFR 97.72 BUN/Creatinine Ratio 20.3 H (10-20) Glucose 118 H (70-99(Fasting)) mg/dl POC Glucose 109 H 105 H (70-99) mg/dl Calcium 8.4 L (8.6-10.3) mg/dl Phosphorus 2.5 (2.5-4.9) mg/dl Magnesium 1.8 (1.7-2.4) mg/dl 01/11/25 01/11/25 Range/Units 16:02 11:20 WBC (4.8-10.8) K/ul RBC (4.70-6.10) M/uL Hgb (14.0-18.0) g/dl Hct (42.0-52.0) % MCV (80.0-100.0) fL MCH (25.0-34.0) pg MCHC (32.0-36.0) g/dL RDW Std Deviation (36.4-46.3) fL RDW Coeff of Dominic (11.5-14.5) % Plt Count (130-400) K/uL MPV (9.4-12.4) fL Sodium (136-145) mmol/L Potassium (3.5-5.1) mmol/L Chloride (98-107) mmol/L Carbon Dioxide (21-32) mmol/L Anion Gap (3-11) BUN (6-23) mg/dl Creatinine (0.6-1.4) mg/dl Est Cr Clr Drug Dosing ml/min eGFR BUN/Creatinine Ratio (10-20) Glucose (70-99(Fasting)) mg/dl POC Glucose 131 H 132 H (70-99) mg/dl Calcium (8.6-10.3) mg/dl Phosphorus (2.5-4.9) mg/dl Magnesium (1.7-2.4) mg/dl
[2025-01-12] MEDS ORDERED: MECLIZINE HCL 25 MG TAB PO PRN (16:49)
--- NOTE | 2025-01-12 16:53 | Hospitalist Progress Note ---
Date of Service January 12, 2025 Assessment & Plan (1) Partial small bowel obstruction: (2) Paroxysmal atrial fibrillation with rapid ventricular response: (3) Type 2 diabetes mellitus with insulin therapy: (4) IFRAH on CPAP: (5) Fatty liver disease, nonalcoholic: Plan Mr. Nieves is a 74-year-old male with PMH of SBO d/t adhesion resulting from previous abdominal surgeries [appendectomy, cholecystectomy], CAD s.p stent, Atrial flutter s/p ablation and on Eliquis, HTN, HLD, COPD, IFRAH on BPAP, GERD, T2DM insulin requiring, chronic back pain, RLS, past tobacco abuse presented to the ED 01/08 with complaint of nausea, vomiting, abdominal discomfort progressively worsening. Patient admitted for small bowel obstruction. Patient with distention overnight of 01/10 but improving this afternoon. Dispo contingent on ability to tolerate diet #dizziness/vertigo orthostats negative reports positional component and chronicity to symptoms meclizine prn PT monique hallpike eval #Small bowel obstruction Admitting CTAP suggestive of SBO. General surgery on board -CLD yesterday, however due to distention, transitioned to NPO overnight of 01/10 -Retrial full liquid -continue ambulation as able Resume IVF @ 125cc/hr Pt moved bowels twice, reports improvement in belly pain. #Atrial flutter with RVR: improved Admitting EKG: Atrial flutter with heart rate 148. Heart rate has improved, continue with home metoprolol and as needed IV metoprolol. Continue with telemetry monitoring, patient denies chest pain or shortness of breath. Potential to resume eliquis this evening #Leucocytosis: Suspect leukocytosis is reactive due to the small bowel obstruction, at this time no evidence of bacterial infection, will continue to monitor off of antibiotic and reassess need for any type of further intervention. CXR w/ no acute finding. resolving Other chronic medical conditions: Continue with/resume home meds as and when able. Prostatomegaly, distended urinary bladder: Follow-up with urology as prior. CAD: Status post stent. Continue cardiac medications. Hypertension: Stable. Continue to monitor. Continue home medications. Hyperlipidemia: On statin at home, currently on hold. COPD, IFRAH on BPAP: Patient without any pulmonary complaints T2DM: Insulin requiring, continue with sliding scale insulin while in hospital. DVT prophylaxis: plan to resume eliquis Full code Dispo: gen bruno Dumontx following, Admission and Anticipated Discharge Date Admission Date: January 08, 2025 Subjective reports some dizziness-states better than yesterday but also not an abnormal occurence for him reports improved appetite and bowel movements denies any further nausea or abdominal discomfort Physical Exam Constitutional: WD/WN, vitals as above Respiratory: normal respiratory effort, lungs clear to auscultation Cardiovascular: RRR, no murmur, no edema Gastrointestinal (Abdomen): normal bowel sounds, soft, nontender, no hepatosplenomegaly Results & Data Results & Data Vital Signs (Past 12 Hours) Vital Signs Temp Pulse Pulse Resp BP Pulse Ox O2 Del Method 01/12/25 15:19 82 18 121/78 95 Room Air 01/12/25 14:58 78 01/12/25 10:55 36.4 C L 87 18 123/84 97 Room Air 01/12/25 08:00 Room Air 01/12/25 07:28 36.2 C L 78 18 107/71 94 Room Air 01/12/25 07:26 75 Laboratory Results Short CBC 01/12/25 Range/Units 06:31 WBC 5.53 (4.8-10.8) K/ul Hgb 14.2 (14.0-18.0) g/dl Hct 40.6 L (42.0-52.0) % Plt Count 107 L (130-400) K/uL BMP 01/12/25 06:31 Sodium 139 Potassium 3.8 Chloride 106 Carbon Dioxide 27 BUN 14 Creatinine 0.69 Glucose 118 H Calcium 8.4 L Medications Administered Home Medications Medication Instructions Recorded Confirmed Last Taken apixaban 5 mg tablet 5 mg PO BID 10/26/18 01/08/25 01/07/25 aspirin 81 mg tablet,delayed 81 mg PO HS 10/26/18 01/08/25 01/07/25 release (Ecotrin Low Strength) cetirizine 10 mg tablet (Zyrtec) 10 mg PO HS 10/26/18 01/08/25 01/07/25 fluticasone propionate 50 2 spray intranasal DAILY 10/26/18 01/08/25 01/07/25 mcg/actuation nasal spray,suspension (Flonase Allergy Relief) rosuvastatin 40 mg tablet 40 mg PO HS 10/26/18 01/08/25 01/07/25 ascorbic acid (vitamin C) 500 mg 500 mg PO QAM 02/18/21 01/08/25 01/07/25 capsule cyanocobalamin (vitamin B-12) 1,000 mcg sublingual QAM 02/18/21 01/08/25 01/07/25 1,000 mcg sublingual tablet metoprolol succinate 50 mg 25 mg PO BID 02/18/22 01/08/25 01/07/25 tablet,extended release 24 hr OneTouch Verio test strips (blood #400 ea 06/03/22 11/22/24 Unknown sugar diagnostic) docusate sodium 100 mg capsule 100 mg PO DAILY 05/24/24 01/08/25 01/07/25 acetaminophen 325 mg tablet 650 mg PO BID PRN Pain 06/09/24 01/08/25 06/09/24 15:30 (Tylenol) clobetasol 0.05 % scalp solution 1 applic topical BID PRN SKIN 06/09/24 01/08/25 Unknown IRRITATIONS empagliflozin 25 mg tablet 25 mg PO DAILY 06/09/24 01/08/25 01/07/25 (Jardiance) mineral oil (Mineral Oil Heavy 15 ml PO DAILY PRN Constipation 06/09/24 01/08/25 Unknown oral) potassium chloride 20 mEq 10 meq PO 4XWK 06/09/24 01/08/25 01/07/25 tablet,extended release triamcinolone acetonide 0.1 % 1 applic topical BID PRN SKIN 06/09/24 01/08/25 Unknown topical cream IRRITATIONS lidocaine 4 % topical patch 1 patch topical DAILY #30 ea 06/11/24 01/08/25 01/07/25 Dexcom G7 Sensor (blood-glucose #9 ea 11/22/24 11/22/24 Unknown sensor) insulin aspart U-100 100 unit/mL 25 unit subcut TID PRN Before 11/22/24 01/08/25 Unknown (3 mL) subcutaneous pen (Novolog meals for diabetes FlexPen U-100 Insulin aspart) insulin glargine U-300 conc 300 40 unit subcut DAILY 11/22/24 01/08/25 01/07/25 unit/mL (1.5 mL) subcutaneous pen (Toujeo SoloStar U-300 Insulin) pen needle, diabetic 32 gauge x #500 ea 11/22/24 11/22/24 Unknown " (BD Aisha 2nd Gen Pen Needle) magnesium oxide 420 mg tablet 420 mg PO DAILY 01/08/25 01/08/25 01/07/25 omeprazole 40 mg capsule,delayed 40 mg PO DAILY 01/08/25 01/08/25 01/07/25 release urea 20 % topical cream 1 applic topical DAILY Dry skin 01/08/25 01/08/25 01/07/25 Active Medications Generic Name Dose Route Start Last Admin Trade Name Pengq PRN Reason Stop Dose Admin Apixaban 5 mg 01/08/25 15:50 01/12/25 08:38 Apixaban 5 Mg Tablet PO 02/07/25 15:49 5 mg BID CLAUDIO Administration Aspirin 81 mg 01/08/25 21:00 01/11/25 21:55 Aspirin 81 Mg Ectab PO 02/07/25 20:59 81 mg HS CLAUDIO Administration Docusate Sodium 100 mg 01/09/25 09:00 01/12/25 08:39 Docusate Sodium 100 Mg Cap PO 02/08/25 08:59 100 mg DAILY CLAUDIO Administration Fluticasone Propionate 2 sprays 01/09/25 09:00 01/12/25 08:39 Fluticasone Propionate Na Spr 16 Gm Btl NA 02/08/25 08:59 2 sprays DAILY CLAUDIO Administration Heparin Sodium/Dextrose 25,000 units in 500 mls @ 0 mls/hr 01/09/25 12:45 01/10/25 20:08 Heparin 11629 Unit/500 Ml D5w IV 02/08/25 12:44 0 units/hr .Q0M CLAUDIO 0 mls/hr Titration Protocol 0 UNITS/HR Pantoprazole Sodium 40 mg in 10 mls @ 5 mls/min 01/09/25 21:00 01/12/25 08:38 Protonix IV 02/08/25 20:59 5 mls/min BID CLAUDIO Administration Insulin Aspart 0 units 01/12/25 07:30 01/12/25 11:53 Insulin Aspart Per Unit Charge SC 02/11/25 07:29 Not Given ACHS CLAUDIO Insulin Glargine 5 units 01/11/25 09:00 01/12/25 08:38 Lantus Per Unit Charge SC 02/10/25 08:59 5 units DAILY CLAUDIO Administration Metoprolol Succinate 25 mg 01/08/25 15:50 01/12/25 08:58 Metoprolol Succ 25mg Ext Rel Tab PO 02/07/25 15:49 25 mg BID CLAUDIO Administration Metoprolol Tartrate 5 mg 01/08/25 15:50 01/08/25 20:55 Metoprolol Tartrate 1 Mg/Ml Vial IV 02/07/25 15:49 5 mg Q4 PRN Administration sustained HR>120 Ondansetron HCl 4 mg 01/08/25 15:50 01/11/25 20:35 Ondansetron Inj 2 Mg/Ml 2 Ml Vial IV 02/07/25 15:49 4 mg Q6H PRN Administration Nausea
[2025-01-13 06:27] LABS: Albumin Globulin Ratio 1.4 (0.9-2); Albumin Level 3.4 gm/dl (3.4-5.0); BUN Creatinine Ratio 16.7 (10-20); Bilirubin,Total 0.9 mg/dl (0.2-1.0); Calcium 8.4 mg/dl (8.6-10.3); Creatinine Clr Calc Pharmacy 135.7 ml/min; Globulin 2.4 gm/dl (2.5-4.0); Magnesium 1.7 mg/dl (1.7-2.4); Phosphorus 2.9 mg/dl (2.5-4.9); Potassium 3.9 mmol/L (3.5-5.1); Total Protein 5.8 gm/dl (6.0-8.3)
--- NOTE | 2025-01-13 09:40 | Surgery Progress Note ---
Date of Service January 13, 2025 Assessment & Plan (1) SBO (small bowel obstruction): Plan slowly improving abdomen soft, nontender +flatus tolerating full liquids Plan: advance to low fiber diet continue to ambulate continue medical management possible discharge home later today if tolerates advanced diet? Discussed with Dr. Arteaga who agrees with above. Admission and Anticipated Discharge Date Admission Date: January 08, 2025 Subjective feeling good abdomen feels less bloated, mild nausea this am but felt hungry tolerating full liquids without nausea, pain, or increased bloating continuing to pass gas, last bowel movement 2 days ago, normally can go 5-6 days without bowel movement at home Physical Exam Constitutional: WD/WN, vitals as above cooperative and comfortable; no acute distress and not ill appearing Respiratory: normal respiratory effort; no respiratory distress Gastrointestinal (Abdomen): Inspection/Auscultation: abdomen normal to inspection and + abdominal surgical scar (laparoscopic and RIH scar); abdomen not distended Percussion/Palpation: abdomen soft; abdomen nontender, no guarding and abdomen not rigid Skin: no rashes, warm and dry Psychiatric: Orientation: alert and oriented x 3 Results & Data Vital Signs (Past 12 Hours) Vital Signs Temp Pulse Pulse Resp BP BP Pulse Ox 01/13/25 08:24 36.7 C 85 18 129/67 98 01/13/25 07:29 75 01/13/25 03:11 36.9 C 83 14 116/72 93 01/12/25 22:44 36.9 C 108 H 20 145/74 H 92 01/12/25 21:41 81 O2 Del Method 01/13/25 08:24 Room Air 01/13/25 07:29 01/13/25 03:11 Room Air 01/12/25 22:44 Room Air 01/12/25 21:41 Laboratory Results 01/13/25 01/13/25 01/12/25 Range/Units 07:42 05:36 20:26 Sodium 139 (136-145) mmol/L Potassium 3.9 (3.5-5.1) mmol/L Chloride 107 (98-107) mmol/L Carbon Dioxide 26 (21-32) mmol/L Anion Gap 6 (3-11) BUN 10 (6-23) mg/dl Creatinine 0.60 (0.6-1.4) mg/dl Est Cr Clr Drug Dosing 135.7 ml/min eGFR 101.93 BUN/Creatinine Ratio 16.7 (10-20) Glucose 129 H (70-99(Fasting)) mg/dl POC Glucose 131 H 136 H (70-99) mg/dl Calcium 8.4 L (8.6-10.3) mg/dl Phosphorus 2.9 (2.5-4.9) mg/dl Magnesium 1.7 (1.7-2.4) mg/dl Total Bilirubin 0.9 (0.2-1.0) mg/dl AST 27 (13-39) U/L ALT 27 (7-52) U/L Alkaline Phosphatase 65 (34-104) U/L Total Protein 5.8 L (6.0-8.3) gm/dl Albumin 3.4 (3.4-5.0) gm/dl Globulin 2.4 L (2.5-4.0) gm/dl Albumin/Globulin Ratio 1.4 (0.9-2) 01/12/25 01/12/25 Range/Units 16:24 11:47 Sodium (136-145) mmol/L Potassium (3.5-5.1) mmol/L Chloride (98-107) mmol/L Carbon Dioxide (21-32) mmol/L Anion Gap (3-11) BUN (6-23) mg/dl Creatinine (0.6-1.4) mg/dl Est Cr Clr Drug Dosing ml/min eGFR BUN/Creatinine Ratio (10-20) Glucose (70-99(Fasting)) mg/dl POC Glucose 103 H 115 H (70-99) mg/dl Calcium (8.6-10.3) mg/dl Phosphorus (2.5-4.9) mg/dl Magnesium (1.7-2.4) mg/dl Total Bilirubin (0.2-1.0) mg/dl AST (13-39) U/L ALT (7-52) U/L Alkaline Phosphatase (34-104) U/L Total Protein (6.0-8.3) gm/dl Albumin (3.4-5.0) gm/dl Globulin (2.5-4.0) gm/dl Albumin/Globulin Ratio (0.9-2)
--- NOTE | 2025-01-13 16:31 | Hospitalist Progress Note ---
Date of Service January 13, 2025 Assessment & Plan (1) Partial small bowel obstruction: (2) Paroxysmal atrial fibrillation with rapid ventricular response: (3) Type 2 diabetes mellitus with insulin therapy: (4) IFRAH on CPAP: (5) Fatty liver disease, nonalcoholic: Plan Mr. Nieves is a 74-year-old male with PMH of SBO d/t adhesion resulting from previous abdominal surgeries [appendectomy, cholecystectomy], CAD s.p stent, Atrial flutter s/p ablation and on Eliquis, HTN, HLD, COPD, IFRAH on BPAP, GERD, T2DM insulin requiring, chronic back pain, RLS, past tobacco abuse presented to the ED 01/08 with complaint of nausea, vomiting, abdominal discomfort progressively worsening. Patient admitted for small bowel obstruction. Patient with distention overnight of 01/10 but improving this afternoon. Dispo contingent on ability to tolerate diet #dizziness/vertigo orthostats negative reports positional component and chronicity to symptoms meclizine prn PT monique hallpike eval pending #Small bowel obstruction Admitting CTAP suggestive of SBO. General surgery on board -CLD on 01/09 however due to distention, transitioned to NPO overnight of 01/10 -Tolerating fulls this far, regular diet as of 01/13 -possible dispo tomorrow -Low fiber diet for 2 weeks discussed #Atrial flutter with RVR: improved Admitting EKG: Atrial flutter with heart rate 148. Heart rate has improved, continue with home metoprolol and as needed IV metoprolol. Continue with telemetry monitoring, patient denies chest pain or shortness of breath. resume eliquis this evening #Leucocytosis: Suspect leukocytosis is reactive due to the small bowel obstruction, at this time no evidence of bacterial infection, will continue to monitor off of antibiotic and reassess need for any type of further intervention. CXR w/ no acute finding. resolving Other chronic medical conditions: Continue with/resume home meds as and when able. Prostatomegaly, distended urinary bladder: Follow-up with urology as prior. CAD: Status post stent. Continue cardiac medications. Hypertension: Stable. Continue to monitor. Continue home medications. Hyperlipidemia: On statin at home, currently on hold. COPD, IFRAH on BPAP: Patient without any pulmonary complaints T2DM: Insulin requiring, continue with sliding scale insulin while in hospital. DVT prophylaxis: eliquis Full code Dispo: gradually ADAT, gen sx following, Admission and Anticipated Discharge Date Admission Date: January 08, 2025 Subjective NAEO Reports overall improvement in dizziness, ambulation, abdominal distention frequent flatus Physical Exam Constitutional: WD/WN, vitals as above Respiratory: normal respiratory effort, lungs clear to auscultation Cardiovascular: RRR, no murmur, no edema Gastrointestinal (Abdomen): normal bowel sounds, soft, nontender, no hepatosplenomegaly Results & Data Results & Data Vital Signs (Past 12 Hours) Vital Signs Temp Pulse Pulse Resp BP Pulse Ox O2 Del Method 01/13/25 16:06 36.4 C L 88 18 114/76 95 Room Air 01/13/25 14:07 84 01/13/25 11:23 36.8 C 68 18 113/79 96 Room Air 01/13/25 08:24 36.7 C 85 18 129/67 98 Room Air 01/13/25 07:29 75 Laboratory Results [facility] 01/13/25 05:36 Sodium 139 Potassium 3.9 Chloride 107 Carbon Dioxide 26 BUN 10 Creatinine 0.60 Glucose 129 H Calcium 8.4 L Liver Function 01/13/25 Range/Units 05:36 Total Bilirubin 0.9 (0.2-1.0) mg/dl AST 27 (13-39) U/L ALT 27 (7-52) U/L Alkaline Phosphatase 65 (34-104) U/L Albumin 3.4 (3.4-5.0) gm/dl Medications Administered Home Medications Medication Instructions Recorded Confirmed Last Taken apixaban 5 mg tablet 5 mg PO BID 10/26/18 01/08/25 01/07/25 aspirin 81 mg tablet,delayed 81 mg PO HS 10/26/18 01/08/25 01/07/25 release (Ecotrin Low Strength) cetirizine 10 mg tablet (Zyrtec) 10 mg PO HS 10/26/18 01/08/25 01/07/25 fluticasone propionate 50 2 spray intranasal DAILY 10/26/18 01/08/25 01/07/25 mcg/actuation nasal spray,suspension (Flonase Allergy Relief) rosuvastatin 40 mg tablet 40 mg PO HS 10/26/18 01/08/25 01/07/25 ascorbic acid (vitamin C) 500 mg 500 mg PO [facility] 02/18/21 01/08/25 01/07/25 capsule cyanocobalamin (vitamin B-12) 1,000 mcg sublingual QAM 02/18/21 01/08/25 01/07/25 1,000 mcg sublingual tablet metoprolol succinate 50 mg 25 mg PO BID 02/18/22 01/08/25 01/07/25 tablet,extended release 24 hr OneTouch Verio test strips (blood #400 ea 06/03/22 11/22/24 Unknown sugar diagnostic) docusate sodium 100 mg capsule 100 mg PO DAILY 05/24/24 01/08/25 01/07/25 acetaminophen 325 mg tablet 650 mg PO BID PRN Pain 06/09/24 01/08/25 06/09/24 15:30 (Tylenol) clobetasol 0.05 % scalp solution 1 applic topical BID PRN SKIN 06/09/24 01/08/25 Unknown IRRITATIONS empagliflozin 25 mg tablet 25 mg PO DAILY 06/09/24 01/08/25 01/07/25 (Jardiance) mineral oil (Mineral Oil Heavy 15 ml PO DAILY PRN Constipation 06/09/24 01/08/25 Unknown oral) potassium chloride 20 mEq 10 meq PO 4XWK 06/09/24 01/08/25 01/07/25 tablet,extended release triamcinolone acetonide 0.1 % 1 applic topical BID PRN SKIN 06/09/24 01/08/25 Unknown topical cream IRRITATIONS lidocaine 4 % topical patch 1 patch topical DAILY #30 ea 06/11/24 01/08/25 01/07/25 Dexcom G7 Sensor (blood-glucose #9 ea 11/22/24 11/22/24 Unknown sensor) insulin aspart U-100 100 unit/mL 25 unit subcut TID PRN Before 11/22/24 01/08/25 Unknown (3 mL) subcutaneous pen (Novolog meals for diabetes FlexPen U-100 Insulin aspart) insulin glargine U-300 conc 300 40 unit subcut DAILY 11/22/24 01/08/25 01/07/25 unit/mL (1.5 mL) subcutaneous pen (Toujeo SoloStar U-300 Insulin) pen needle, diabetic 32 gauge x #500 ea 11/22/24 11/22/24 Unknown " (BD Aisha 2nd Gen Pen Needle) magnesium oxide 420 mg tablet 420 mg PO DAILY 01/08/25 01/08/25 01/07/25 omeprazole 40 mg capsule,delayed 40 mg PO DAILY 01/08/25 01/08/25 01/07/25 release urea 20 % topical cream 1 applic topical DAILY Dry skin 01/08/25 01/08/25 01/07/25 Active Medications Generic Name Dose Route Start Last Admin Trade Name Sheila PRN Reason Stop Dose Admin Apixaban 5 mg 01/08/25 15:50 01/13/25 08:43 Apixaban 5 Mg Tablet PO 02/07/25 15:49 5 mg BID CLAUDIO Administration Aspirin 81 mg 01/08/25 21:00 01/12/25 19:47 Aspirin 81 Mg Ectab PO 02/07/25 20:59 81 mg HS CLAUDIO Administration Docusate Sodium 100 mg 01/09/25 09:00 01/13/25 08:47 Docusate Sodium 100 Mg Cap PO 02/08/25 08:59 100 mg DAILY CLAUDIO Administration Fluticasone Propionate 2 sprays 01/09/25 09:00 01/13/25 08:43 Fluticasone Propionate Na Spr 16 Gm Btl NA 02/08/25 08:59 2 sprays DAILY CLAUDIO Administration Heparin Sodium/Dextrose 25,000 units in 500 mls @ 0 mls/hr 01/09/25 12:45 01/13/25 07:08 Heparin 17438 Unit/500 Ml D5w IV 02/08/25 12:44 Infused .Q0M CLAUDIO Titration Protocol 0 UNITS/HR Pantoprazole Sodium 40 mg in 10 mls @ 5 mls/min 01/09/25 21:00 01/13/25 08:44 Protonix IV 02/08/25 20:59 5 mls/min BID CLAUDIO Administration Insulin Aspart 0 units 01/12/25 07:30 01/13/25 12:22 Insulin Aspart Per Unit Charge SC 02/11/25 07:29 1 units ACHS CLAUDIO Administration Insulin Glargine 5 units 01/11/25 09:00 01/13/25 08:48 Lantus Per Unit Charge SC 02/10/25 08:59 5 units DAILY CLAUDIO Administration Metoprolol Succinate 25 mg 01/08/25 15:50 01/13/25 08:43 Metoprolol Succ 25mg Ext Rel Tab PO 02/07/25 15:49 25 mg BID CLAUDIO Administration Metoprolol Tartrate 5 mg 01/08/25 15:50 01/08/25 20:55 Metoprolol Tartrate 1 Mg/Ml Vial IV 02/07/25 15:49 5 mg Q4 PRN Administration sustained HR>120 Ondansetron HCl 4 mg 01/08/25 15:50 01/11/25 20:35 Ondansetron Inj 2 Mg/Ml 2 Ml Vial IV 02/07/25 15:49 4 mg Q6H PRN Administration Nausea
--- NOTE | 2025-01-14 06:11 | Surgery Progress Note ---
Date of Service January 14, 2025 Assessment & Plan (1) SBO (small bowel obstruction): Plan: Patient improving and states he feels well overall. Passing gas and did have a small BM yesterday Tolerating diet without issues or complaints of N/V Continue to encourage OOB and ambulation Possible discharge home later today if patient continues to tolerate diet. Did discuss with patient about continuing low fiber diet once discharged as well. Admission and Anticipated Discharge Date Admission Date: January 08, 2025 Supervising Physician Co-Signing Physician Notes I have seen and examined this patient this am and I agree with the assessment. No abdominal tenderness, has h/o right inguinal hernia repair. Site at which he states he always has some soreness but his acute b/l mid abdominal pain is resolved and there is no hernia involving bowel on his CT. Has bowel function without nausea or vomiting. He is tolerating low fiber diet. Surgery will sign off at this time. Patient may be discharged from a surgical standpoint. Please call or message if questions. Subjective Patient doing well this morning, was sitting up in chair, no acute complaints VSS Passing gas and did have a small BM yesterday Tolerating diet without any issues of N/V Physical Exam Constitutional: WD/WN, vitals as above Respiratory: normal respiratory effort, lungs clear to auscultation Cardiovascular: Rate/Rhythm: regular rate Gastrointestinal (Abdomen): Inspection/Auscultation: abdomen normal to inspection; abdomen not distended Percussion/Palpation: abdomen soft; abdomen nontender, no guarding, abdomen not rigid and abdomen not firm + abdominal surgical scar (laparoscopic and RIH scar) Skin: no rashes, warm and dry Results & Data Vital Signs (Past 12 Hours) Vital Signs Temp Pulse Pulse Resp BP BP Pulse Ox 01/14/25 03:22 36.6 C 76 14 122/83 95 01/13/25 23:54 36.4 C L 98 H 22 109/75 94 01/13/25 22:04 76 01/13/25 20:03 36.6 C 83 20 120/83 96 O2 Del Method 01/14/25 03:22 Room Air 01/13/25 23:54 Room Air 01/13/25 22:04 01/13/25 20:03 Room Air PG Care Time/CCT Total # of Minutes Spent Total Time Spent with Patient: Total time spent is greater than 50% in coordination of care (as documented) at patient's floor/unit and/or counseling patient: C[place] [address] SUB INP/OBS CARE 12/10MIN Patient Type Established Medical Decision Making Straight Forward Diagnoses SBO (small bowel obstruction) K56.609
[2025-01-14 06:57] LABS: Hematocrit (blood only) 45.2 % (42.0-52.0); Hemoglobin 16.1 g/dl (14.0-18.0); Mean Corpuscular Hemoglobin 31.5 pg (25.0-34.0); Mean Corpuscular Hgb Conc 35.6 g/dL (32.0-36.0); Mean Corpuscular Volume 88.5 fL (80.0-100.0); Mean Platelet Volume 11.6 fL (9.4-12.4); Platelet Count 153 K/uL (130-400); RDW Coefficient of Variation 12.9 % (11.5-14.5); RDW Standard Deviation 42.2 fL (36.4-46.3); Red Blood Count 5.11 M/uL (4.70-6.10); White Blood Count 7.87 K/ul (4.8-10.8)
[2025-01-14 07:23] LABS: Anion Gap 6 (3-11); BUN Creatinine Ratio 14.3 (10-20); Blood Urea Nitrogen 11 mg/dl (6-23); Carbon Dioxide 30 mmol/L (21-32); Chloride 103 mmol/L (98-107); Creatinine Clr Calc Pharmacy 105.9 ml/min; Glucose 145 mg/dl (70-99(Fasting)); Magnesium 1.9 mg/dl (1.7-2.4); Phosphorus 3.1 mg/dl (2.5-4.9); Sodium 139 mmol/L (136-145)
[2025-01-14 08:27] VITALS: RESP 18; TEMP 97.3; O2SAT 96
[2025-01-14 10:43] VITALS: BP 122/83; PULSE 77
--- NOTE | 2025-01-14 16:07 | Discharge Summary ---
Discharge Summary Date of Service January 14, 2025 Principal Dx & Hospital Course #1 = Principal Diagnosis (1) Partial small bowel obstruction: (2) Paroxysmal atrial fibrillation with rapid ventricular response: (3) Type 2 diabetes mellitus with insulin therapy: (4) IFRAH on CPAP: (5) Fatty liver disease, nonalcoholic: Plan Mr. Nieves is a 74-year-old male with PMH of SBO d/t adhesion resulting from previous abdominal surgeries [appendectomy, cholecystectomy], CAD s.p stent, Atrial flutter s/p ablation and on Eliquis, HTN, HLD, COPD, IFRAH on BPAP, GERD, T2DM insulin requiring, chronic back pain, RLS, past tobacco abuse presented to the ED 01/08 with complaint of nausea, vomiting, abdominal discomfort progressively worsening. Patient admitted for small bowel obstruction. Patient with distention overnight of 01/10. Patient ultimately was able to advance diet and tolerated low fiber diet Patient's course complicated by intermittent dizziness/vertigo. Patient does remark that he has this chronically. Offered PT for eval however, patient requested to discharge and follow up as op for this concern. On day of discharge, patient denies nausea, tolerated diet, passing flatus, and had BM prior evening. #dizziness/vertigo orthostats negative reports positional component and chronicity to symptoms meclizine prn Patient requested to follow up as OP #Small bowel obstruction Admitting CTAP suggestive of SBO. General surgery on board -CLD on 01/09 however due to distention, transitioned to NPO overnight of 01/10 -Tolerating fulls this far, regular/low fiber diet as of 01/13 -Low fiber diet for 2 weeks discussed #Atrial flutter with RVR: improved Admitting EKG: Atrial flutter with heart rate 148. Heart rate has improved, continue with home metoprolol continue eliquis #Leucocytosis: Suspect leukocytosis is reactive due to the small bowel obstruction, at this time no evidence of bacterial infection, will continue to monitor off of antibiotic and reassess need for any type of further intervention. CXR w/ no acute finding. resolved Other chronic medical conditions: Continue with/resume home meds as and when able. Prostatomegaly, distended urinary bladder: Follow-up with urology as prior. CAD: Status post stent. Continue cardiac medications. Hypertension: Stable. Continue to monitor. Continue home medications. Hyperlipidemia: On statin at home, currently on hold. COPD, IFRAH on BPAP: Patient without any pulmonary complaints T2DM: Insulin requiring, continue with sliding scale insulin while in hospital. Notes For Next Care Provider Low fiber diet x 2 weeks Recommend vertigo eval if still problematic Medication Changes From Visit None Admission HPI Per Admitting Provider Patient is a 74-year-old gentleman with known history of paroxysmal atrial fibrillation, coronary disease, diabetes and previous history of small bowel obstructions due to adhesions resulting from previous abdominal surgeries including appendectomy and cholecystectomy. Presents to the emergency department with above complaints. Reports that his has had a "the flu" and he feels like he is starting to have some of the similar symptoms. Yesterday started with some nausea and abdominal discomfort. Initially thought that it was the flu, however through the night started with some significant emesis and some the emesis appeared feculent due to his previous small bowel obstructions came to the emergency room for evaluation. In the emergency room had some leukocytosis. CAT scan of the abdomen showed developing/partial small bowel obstruction versus ileus. On telemetry monitoring is also noted that he was in atrial flutter with rapid ventricular response. He was referred to our service for further evaluation. Time of my evaluation patient was feeling a little bit better has not had any further emesis here in the ED, however he is complaining of some burning and discomfort of his abdomen. He does not really appreciate that he is in the atrial fibrillation. He has had multiple previous ablations and reports that he cannot sense it as much as he used to in the past. Has not taken any of his medications this morning. He admits to some chills but no definite fevers. No chest pain. No shortness of breath. No real cough or congestion. Just this sudden nausea vomiting abdominal discomfort and generalized malaise. Admission Exam Per Admitting Provider Constitutional: Alert, ill in appearance, nontoxic HEENT: Mucous membranes dry sclera clear Neck: Soft, no adenopathy Lungs: Clear to auscultation, decreased, no wheezes rales or rhonchi CV: S1-S2, irregular irregular, tachycardic Abdomen: Decreased high-pitched bowel sounds, slightly distended with some tympany, no guarding or rigidity Extremities: No significant edema Musculoskeletal: No significant joint tenderness Neuro: No focal deficits Psych: Cooperative, normal mood Discharge Exam Constitutional WD/WN, vitals as above Respiratory normal respiratory effort, lungs clear to auscultation Cardiovascular irregularly irregular Gastrointestinal (Abdomen) normal bowel sounds, soft, nontender, no hepatosplenomegaly Updated Medication List Medication Instructions Recorded Confirmed Type apixaban 5 mg tablet 5 mg PO BID 10/26/18 01/08/25 History aspirin 81 mg tablet,delayed 81 mg PO HS 10/26/18 01/08/25 History release (Ecotrin Low Strength) cetirizine 10 mg tablet (Zyrtec) 10 mg PO HS 10/26/18 01/08/25 History fluticasone propionate 50 2 spray intranasal DAILY 10/26/18 01/08/25 History mcg/actuation nasal spray,suspension (Flonase Allergy Relief) rosuvastatin 40 mg tablet 40 mg PO HS 10/26/18 01/08/25 History ascorbic acid (vitamin C) 500 mg 500 mg PO QAM 02/18/21 01/08/25 History capsule cyanocobalamin (vitamin B-12) 1,000 mcg sublingual QAM 02/18/21 01/08/25 History 1,000 mcg sublingual tablet metoprolol succinate 50 mg 25 mg PO BID 02/18/22 01/08/25 History tablet,extended release 24 hr OneTouch Verio test strips (blood #400 ea 06/03/22 11/22/24 Rx sugar diagnostic) docusate sodium 100 mg capsule 100 mg PO DAILY 05/24/24 01/08/25 History acetaminophen 325 mg tablet 650 mg PO BID PRN Pain 06/09/24 01/08/25 History (Tylenol) clobetasol 0.05 % scalp solution 1 applic topical BID PRN SKIN 06/09/24 01/08/25 History IRRITATIONS empagliflozin 25 mg tablet 25 mg PO DAILY 06/09/24 01/08/25 History (Jardiance) mineral oil (Mineral Oil Heavy 15 ml PO DAILY PRN Constipation 06/09/24 01/08/25 History oral) potassium chloride 20 mEq 10 meq PO [id number] 06/09/24 01/08/25 History tablet,extended release triamcinolone acetonide 0.1 % 1 applic topical BID PRN SKIN 06/09/24 01/08/25 History topical cream IRRITATIONS lidocaine 4 % topical patch 1 patch topical DAILY #30 ea 06/11/24 01/08/25 Rx Dexcom G7 Sensor (blood-glucose #9 ea 11/22/24 11/22/24 Rx sensor) insulin aspart U-100 100 unit/mL 25 unit subcut TID PRN Before 11/22/24 01/08/25 History (3 mL) subcutaneous pen (Novolog meals for diabetes FlexPen U-100 Insulin aspart) insulin glargine U-300 conc 300 40 unit subcut DAILY 11/22/24 01/08/25 History unit/mL (1.5 mL) subcutaneous pen (Toujeo SoloStar U-300 Insulin) pen needle, diabetic 32 gauge x #500 ea 11/22/24 11/22/24 Rx 5/32" (BD Aisha 2nd Gen Pen Needle) magnesium oxide 420 mg tablet 420 mg PO DAILY 01/08/25 01/08/25 History omeprazole 40 mg capsule,delayed 40 mg PO DAILY 01/08/25 01/08/25 History release urea 20 % topical cream 1 applic topical DAILY Dry skin 01/08/25 01/08/25 History Hospital Stay Data Consultations 01/08/25 11:23 ED Decision to Admit Stat 01/08/25 13:22 Consult General Surgery Routine Diagnostic Imagining Performed 01/08/25 09:08 CT abd pelvis IV con only Stat 01/10/25 22:17 CT Abd and Pelvis [CT abd pelvis wo con] Stat Pending Results Patient Have Any Pending Studies at Discharge: No Discharge Instructions Given to Patient (Per Discharging Provider) You were admitted for abdominal pain and noted to have a small bowel obstruction You were treated conservatively It is recommended that you eat a low fiber diet for 2 weeks then slowly introduce yourself to your regular diet Total Time Total Time Spent Total Time Spent (In Minutes): 35
== END 2025-01-14 11:39 | disposition home or self-care (01) | DRG 389 ==
LOC: ED 09:01 → SUATTDRO 12:01 → 2S 12:01